=== PATIENT | female | born 1935 | race Caucasian/White ===

== ENCOUNTER 2019-11-24 14:56 | Inpatient (IN) | payer OTHER ==
--- NOTE | 2019-11-24 15:31 | PDOC ---
History of Present Illness - General Chief Complaint: Abnormal Lab Results (Outside) Stated Complaint: Blood Transfusion Time Seen by Provider: 11/24/19 15:04 History Source: Family, Fdc Records Exam Limitations: Clinical Condition, Dementia, Intubated - History of Present Illness Initial Comments: 83F PMH prior CVA (baseline nonverbal, trach/pegged), COPD, HTN, HF, AF on Eliquis, HAIR BIBEMS from [facility] for low H/H. Son at bedside interviewed for additional hx; states pt suffered CVA in 2014, currently baseline. Was found to be anemia years ago at [facility] but never received GI work up / colonscopy 2 instability. Hx per [facility] paperwork. Past History - Past Medical History Allergies/Adverse Reactions: Allergies Allergy/AdvReac Type Severity Reaction Status Date / Time No Known Allergies Allergy Verified 11/24/19 16:27 Home Medications: Ambulatory Orders Acetaminophen 650 mg PO QID 11/24/19 Apixaban [Eliquis] 5 mg PO BID 11/24/19 Ascorbic Acid 500 mg PO DAILY 11/24/19 Aspirin 81 mg PO DAILY 11/24/19 Atorvastatin Ca [Lipitor] 80 mg PO HS 11/24/19 Ferrous Sulfate [Feosol] 300 mg NGT DAILY 11/24/19 Furosemide 20 mg PO DAILY 11/24/19 Ipratropium/Albuterol Sulfate [Iprat-Albut 0.5-3(2.5) mg/3 ml] 3 ml IH QID 11/24 L. Acidophilus/Pectin, [place] [Acidophilus Capsule] 1 each PO TID 11/24/19 Loperamide HCl [Loperamide] 2 mg PO QID 11/24/19 Magnesium Oxide 400 mg PO BID 11/24/19 Metoprolol Tartrate 25 mg PO BID 11/24/19 Midodrine HCl 10 mg PO DAILY 11/24/19 Multivitamins [Tab-A-Vit -] 1 tab PO DAILY 11/24/19 Omeprazole 40 mg PO DAILY 11/24/19 levETIRAcetam [levETIRAcetam ORAL SUSPENSION] 500 mg PO BID 11/24/19 Review of Systems - Review of Systems Able to Perform ROS?: No *Physical Exam - Vital Signs Last Vital Signs Temp Pulse Resp BP Pulse Ox 72 14 100 11/24/19 15:18 11/24/19 15:18 11/24/19 15:18 - Physical Exam VS: Febrile 102F rectal GEN: eyes closed, responds to stimuli by moving, nonverbal, noncooperative HEENT: NC/AT. No facial asymmetry. Dry membranes. Supple neck w/ FROM. CV: S1/S2, irregular irregular LUNG: Trach/vented. coarse breath sounds, mechanically ventilated. GI: Soft, ndnt, +BS, no guarding, no rebound. G-tube in place. MSK: 2+ distal pulses. No LE edema. No ulceration of the heels/feet. No obvious deformities of all extremities. SKIN: no rashes, warm/dry/intact, supple PSYCH: unable to assess NEURO: unable to assess ED Treatment Course - LABORATORY CBC & Chemistry Diagram: 11/25/19 12:10 11/25/19 12:10 - RADIOLOGY Radiology Studies Ordered: Category Date Time Status CHEST X-RAY PORTABLE* [RAD] Stat Radiology 11/24/19 15:25 Ordered Medical Decision Making - Medical Decision Making 11/24/19 15:29 83F PMH prior CVA (baseline nonverbal, trach/pegged), COPD, HTN, HF, AF on Eliquis, HAIR BIBEMS from [facility] for low H/H. Nonverbal, unable to obtain hx from patient. coarse breath sounds. Spoke w/ [facility] RN - hgb yesterday 6.3, wbc 11.3. - sepsis labs - t&s - FOBT - cxr - consent for pRBC 11/24/19 17:32 CXR image/report reviewed - bibasilar changes labs reviewed abx admit // ADMITTED Discharge - Discharge Information Problems reviewed: Yes Clinical Impression/Diagnosis: Volume overload Qualifiers: Hypervolemia type: other Qualified Code(s): E87.79 - Other fluid overload Pneumonia Qualifiers: Pneumonia type: due to unspecified organism Laterality: unspecified laterality Lung location: unspecified part of lung Qualified Code(s): J18.9 - Pneumonia, unspecified organism Condition: Stable - Admission Yes - Follow up/Referral - Patient Discharge Instructions - Post Discharge Activity
[2019-11-24] MEDS ORDERED: ACETAMINOPHEN 1000 MG/100 ML VIAL (NON FORMULARY) IVPB ONE (16:03)
[2019-11-24] MEDS ORDERED: ACETAMINOPHEN INJECTION 100 ML IVPB ONE (16:47)
[2019-11-24 17:03] LABS: BASO % 0.5 % (0-2.0); EOS % 1.9 % (0-4.5); HEMATOCRIT 28.3 % (32.4-45.2); LYMPH % 16.7 % (8-40); MCHC 31.8 g/dl (32.0-36.0); MEAN CELL VOLUME 88.1 fl (80-96); MEAN PLT VOLUME 7.4 fl (7.5-11.1); MONO % 6.1 % (3.8-10.2); NEUT % 74.8 % (42.8-82.8); PLATELET COUNT 386 K/MM3 (134-434); RBC 3.21 M/mm3 (3.60-5.2); RDW 23.6 % (11.6-15.6); WHITE BLOOD COUNT 8.9 K/mm3 (4.0-10.0)
[2019-11-24 17:11] LABS: VENOUS PC02 44.7 mmHg (38-52); VENOUS PH 7.44 (7.31-7.41); VENOUS PO2 49.1 mmHg (28-48)
[2019-11-24] MEDS ORDERED: VANCOMYCIN 1 GM in D5W (PRE-DOCKED) 1,000 MG/250 ML IVPB ONE (17:15)
[2019-11-24] MEDS ORDERED: AZITHROMYCIN IVPB 500 MG in DEXTROSE 5%-WATER - 250 ML IVPB ONE (17:15)
[2019-11-24] MEDS ORDERED: PIPERACILLIN/TAZOB 3.375 GM 3.375 GM in DEXTROSE 5%-WATER - 50 ML IVPB ONE (17:15)
[2019-11-24 17:16] LABS: INR 1.54 (0.83-1.09); PROTHROMBIN TIME (PATIENT) 18.3 SEC (9.7-13.0)
[2019-11-24 17:18] LABS: ACTIVATED PTT 28.8 SECONDS (25.2-36.5)
[2019-11-24 17:32] LABS: ALBUMIN 2.6 g/dl (3.4-5.0); ALK PHOS 70 U/L (45-117); ANION GAP 7 MMOL/L (8-16); BILIRUBIN,TOTAL 0.6 mg/dL (0.2-1); BLOOD UREA NITROGEN 53.9 mg/dL (7-18); CALCIUM 8.6 mg/dL (8.5-10.1); CHLORIDE 104 mmol/L (98-107); CO2 29 mmol/L (21-32); CREATININE 0.8 mg/dL (0.55-1.3); GLUCOSE,RANDOM 105 mg/dL (74-106); POTASSIUM 4.3 mmol/L (3.5-5.1); SGOT/AST 27 U/L (15-37); SGPT/ALT 28 U/L (13-61); SODIUM 139 mmol/L (136-145); TOT PROT 7.1 g/dl (6.4-8.2)
[2019-11-24 18:04] LABS: ANISOCYTOSIS 2+; MACROCYTOSIS 2+
--- NOTE | 2019-11-24 18:04 | PDOC ---
Attending Attestation - Resident Resident Name: CallejasRanjit - ED Attending Attestation I have performed the following: I have examined & evaluated the patient, The case was reviewed & discussed with the resident, I agree w/resident's findings & plan, Exceptions are as noted - HPI HPI: 11/24/19 18:03 83yoF vent dependant sent by SNF for "blood transfuion". Pt nonverbal, noninteractive. Family does not know why pt was sent. Found on ED Presetnation to have fever to 102F of unknown duration. - Physicial Exam PE: 11/24/19 18:04 NAD coarse BS Throughout RRR soft ntnd noninteractive -- baseline per family. - Medical Decision Making 11/24/19 18:04 83yoF w/ fever from SNF, concern for VAP. - cxr - labs - ekg - ivf, tylenol, abx - admit.
[2019-11-24] MEDS ORDERED: AZITHROMYCIN IVPB 500 MG/250 ML BAG IVPB ONE (18:26)
[2019-11-24] MEDS ORDERED: SODIUM CHLORIDE 1,000 ML IV SCH (19:45)
--- NOTE | 2019-11-24 19:59 | HP ---
CHIEF COMPLAINT: sent from [place] with low hemoglobin of 6.3 PCP: HISTORY OF PRESENT ILLNESS: 83 year old female who presents from [facility] with history of CVA with trach-vent and PEG, COPD, hyperlipidemia, and atrial fibrillation on Eliquis who presents from [facility] she had blood work and found to have a hemoglobin of 6.3 and WBC of 11.3. she was sent to ER for further evauation. Patient is nonverbal and unable to obtain accurate health history and no family available at bedside. ER course was notable for: (1)fever of 102.2, WBC 8.9, lactic acid 2.1, CXR w/bibasilar infiltrates- received IV antibiotics(pipercillin and azithromycin) (2) hgb 9.0, hct 28.3, stool occult negative (3) elevated [id number] Recent Travel: no PAST MEDICAL HISTORY: CVA COPD hyperlipidemia atrial fibrillation PAST SURGICAL HISTORY: PEG tracheostomy Social History: Smoking:unable to obtain Alcohol:unable to obtain Drugs: unable to obtain Allergies No Known Allergies Allergy (Verified 11/24/19 16:27) HOME MEDICATIONS: Home Medications Medication Instructions Recorded Acetaminophen 650 mg PO QID 11/24/19 Apixaban [Eliquis] 5 mg PO BID 11/24/19 Ascorbic Acid 500 mg PO DAILY 11/24/19 Aspirin 81 mg PO DAILY 11/24/19 Atorvastatin Ca [Lipitor] 80 mg PO HS 11/24/19 Ferrous Sulfate [Feosol] 300 mg NGT DAILY 11/24/19 Furosemide 20 mg PO DAILY 11/24/19 Ipratropium/Albuterol Sulfate 3 ml IH QID 11/24/19 [Iprat-Albut 0.5-3(2.5) mg/3 ml] L. Acidophilus/Pectin, [place] 1 each PO TID 11/24/19 [Acidophilus Capsule] Loperamide HCl [Loperamide] 2 mg PO QID 11/24/19 Magnesium Oxide 400 mg PO BID 11/24/19 Metoprolol Tartrate 25 mg PO BID 11/24/19 Midodrine HCl 10 mg PO DAILY 11/24/19 Multivitamins [Tab-A-Vit -] 1 tab PO DAILY 11/24/19 Omeprazole 40 mg PO DAILY 11/24/19 levETIRAcetam [levETIRAcetam ORAL 500 mg PO BID 11/24/19 SUSPENSION] REVIEW OF SYSTEMS Unable to obtain ROS due to patient mental status CONSTITUTIONAL: Absent: fever, chills, diaphoresis, generalized weakness, malaise, loss of appetite, weight change HEENT: Absent: rhinorrhea, nasal congestion, throat pain, throat swelling, difficulty swallowing, mouth swelling, ear pain, eye pain, visual changes CARDIOVASCULAR: Absent: chest pain, syncope, palpitations, irregular heart rate, lightheadedness , peripheral edema RESPIRATORY: Absent: cough, shortness of breath, dyspnea with exertion, orthopnea, wheezing, stridor, hemoptysis GASTROINTESTINAL: Absent: abdominal pain, abdominal distension, nausea, vomiting, diarrhea, constipation, melena, hematochezia GENITOURINARY: Absent: dysuria, frequency, urgency, hesitancy, hematuria, flank pain, genital pain MUSCULOSKELETAL: Absent: myalgia, arthralgia, joint swelling, back pain, neck pain SKIN: Absent: rash, itching, pallor HEMATOLOGIC/IMMUNOLOGIC: Absent: easy bleeding, easy bruising, lymphadenopathy, frequent infections ENDOCRINE: Absent: unexplained weight gain, unexplained weight loss, heat intolerance, cold intolerance NEUROLOGIC: Absent: headache, focal weakness or paresthesias, dizziness, unsteady gait, seizure, mental status changes, bladder or bowel incontinence PSYCHIATRIC: Absent: anxiety, depression, suicidal or homicidal ideation, hallucinations. PHYSICAL EXAMINATION Vital Signs - 24 hr 11/24/19 11/24/19 11/24/19 15:17 15:18 15:25 Temperature 102 F H 102.2 F H Pulse Rate 75 72 Respiratory 13 14 Rate Blood Pressure 115/63 O2 Sat by Pulse 100 100 Oximetry (%) GENERAL: no acute distress, nonverbal HEAD: normal EYES: Pupils equal, round and reactive to light, extraocular movements intact, sclera anicteric, conjunctiva clear. No lid lag. EARS, NOSE, THROAT: ears normal, nares patent, oropharynx clear without exudates NECK: no JVD LUNGS: breath sounds diminished no wheezing no rales HEART: rate irregular and rhythm ABDOMEN: nontender nondistended, normoactive bowel sounds, PEG site with no drainage, no erthyema UPPER EXTREMITIES: peripheral edema present LOWER EXTREMITIES:lower extremity edema present warm on palpation NEUROLOGICAL: no movement to upper or lower extremities, does not follow up commands PSYCHIATRIC: calm SKIN: warm dry no rashes or lesions noted, Laboratory Results - last 24 hr 11/24/19 11/24/19 11/24/19 15:50 16:13 16:13 WBC 8.9 RBC 3.21 L Hgb 9.0 L Hct 28.3 L MCV 88.1 MCH 28.0 MCHC 31.8 L RDW 23.6 H Plt Count 386 MPV 7.4 L Absolute Neuts (auto) 6.7 Neutrophils % 74.8 Lymphocytes % 16.7 Monocytes % 6.1 Eosinophils % 1.9 Basophils % 0.5 Nucleated RBC % 0 Anisocytosis 2+ Microcytosis 2+ Macrocytosis 2+ PT with INR INR PTT (Actin FS) VBG pH POC VBG pCO2 POC VBG pO2 VBG HCO3 VBG O2 Sat (Kylie) VBG Base Excess Sodium 139 Potassium 4.3 Chloride 104 Carbon Dioxide 29 Anion Gap 7 L BUN 53.9 H Creatinine 0.8 Est GFR (CKD-EPI)AfAm 77.92 Est GFR (CKD-EPI)NonAf 67.23 Random Glucose 105 Lactic Acid Calcium 8.6 Total Bilirubin 0.6 AST 27 ALT 28 Alkaline Phosphatase 70 Creatine Kinase 42 Troponin I < 0.02 B-Natriuretic Peptide Total Protein 7.1 Albumin 2.6 L Stool Occult Blood Negative Blood Type Antibody Screen 11/24/19 11/24/19 11/24/19 16:13 16:13 16:13 WBC RBC Hgb Hct MCV MCH MCHC RDW Plt Count MPV Absolute Neuts (auto) Neutrophils % Lymphocytes % Monocytes % Eosinophils % Basophils % Nucleated RBC % Anisocytosis Microcytosis Macrocytosis PT with INR 18.30 H INR 1.54 H PTT (Actin FS) 28.8 VBG pH 7.44 H POC VBG pCO2 44.7 POC VBG pO2 49.1 H VBG HCO3 30.2 H VBG O2 Sat (Kylie) 80.6 H VBG Base Excess 6.0 H Sodium Potassium Chloride Carbon Dioxide Anion Gap BUN Creatinine Est GFR (CKD-EPI)AfAm Est GFR (CKD-EPI)NonAf Random Glucose Lactic Acid 2.1 H Calcium Total Bilirubin AST ALT Alkaline Phosphatase Creatine Kinase Troponin I B-Natriuretic Peptide Total Protein Albumin Stool Occult Blood Blood Type Antibody Screen 11/24/19 11/24/19 16:13 16:13 WBC RBC Hgb Hct MCV MCH MCHC RDW Plt Count MPV Absolute Neuts (auto) Neutrophils % Lymphocytes % Monocytes % Eosinophils % Basophils % Nucleated RBC % Anisocytosis Microcytosis Macrocytosis PT with INR INR PTT (Actin FS) VBG pH POC VBG pCO2 POC VBG pO2 VBG HCO3 VBG O2 Sat (Kylie) VBG Base Excess Sodium Potassium Chloride Carbon Dioxide Anion Gap BUN Creatinine Est GFR (CKD-EPI)AfAm Est GFR (CKD-EPI)NonAf Random Glucose Lactic Acid Calcium Total Bilirubin AST ALT Alkaline Phosphatase Creatine Kinase Troponin I B-Natriuretic Peptide 3698.2 H Total Protein Albumin Stool Occult Blood Blood Type A POSITIVE Antibody Screen Negative ASSESSMENT/PLAN: 83 year old female who presents from [facility] with history of CVA with trach-vent and PEG, COPD, hyperlipidemia, and atrial fibrillation on Eliquis who presented from [facility] as she was noted to have a low hemoglobin (6.3) and elevated WBC (11.3). Upon evaluation in the ER she was found to have a hgb of 9.0 and WBC of 8.9. She had an elevated lactic acid of 2.1 and fever of 102. CXR demonstrated bibasilar infiltrates.She is being admitted to Medicine for further medical evaluation/management. #1 Fever in setting of Pneumonia elevated lactic acid, blood pressure soft , revceived IV vancomycin, pipercillin and azithromax --UA and blood cultures pending --repeat lactic acid level in am --Continue with IV pipercillin,azithromax and vancomycin --ID- Dr. Conti consulted regarding IV antibiotics #2 COPD no acute exacerbation --Continue with albuterol #3 Hyperlipidemia --Continue with statin therapy #4 Atrial Fibrillation rate controlled --Will hold metoprolol due to soft blood pressures --Continue with eliquis for stroke prophylaxsis as stool occult negative --Chck repeat CBC in am #5 CVA nonverbal, eyes closed, does not follow commands --Continue statin, will hold asa in setting of anemia #6 Elevated BNP on exam does have fluid overload check echocardiogram to evaluate LV function and valvular anatomy will hold on giving IV diuretics Consider Cardiology evaluation in am FEN avoid IV fluids to avoid acute CHF exacerbation monitor electrolytes with BMP daily RD consult for PEG feeding recommendations DVT Prophylaxsis Continue with eliquis Visit type - Emergency Visit Emergency Visit: Yes ED Registration Date: 11/24/19 Care time: The patient presented to the Emergency Department on the above date and was hospitalized for further evaluation of their emergent condition. - New Patient This patient is new to me today: Yes Date on this admission: 11/25/19 - Critical Care Critical Care patient: No
[2019-11-24] MEDS ORDERED: VANCOMYCIN 1 GRAM (PRE-DOCKED) 1,000 MG/250 ML BAG IVPB ONE (21:56)
[2019-11-24] MEDS ORDERED: PIPERACILLIN/TAZOB 3.375 GM 3.375 GM/50 ML BAG IVPB ONE (22:08)
[2019-11-24] MEDS: ATORVASTATIN CA 80 MG TABLET (FP) PO SCH ×2 (22:14→23:46)
[2019-11-24] MEDS: levETIRAcetam 500 MG TABLET (FP) PO SCH ×2 (22:14→23:46)
[2019-11-24] MEDS: LACTOBACILLUS ACIDOPHILUS 1 TABLET PO SCH ×2 (22:15→23:46)
[2019-11-25] MEDS ORDERED: PIPERACILLIN/TAZOB 3.375 GM 3.375 GM/50 ML BAG IVPB ONE (03:06)
[2019-11-25] MEDS: PIPERACILLIN/TAZOB 3.375 GM 3.375 GM in DEXTROSE 5%-WATER - 50 ML IVPB SCH ×5 (03:08→20:53)
[2019-11-25 03:27] LABS: PH,URINE 8.5 (5.0-8.0); URINE APPEARANCE CLEAR; URINE BILIRUBIN NEGATIVE (NEGATIVE); URINE COLOR YELLOW; URINE GLUCOSE (UA) NEGATIVE (NEGATIVE); URINE KETONE NEGATIVE (NEGATIVE); URINE LEUK ESTERASE NEGATIVE (NEGATIVE); URINE NITRITE NEGATIVE (NEGATIVE); URINE PROTEIN TRACE (NEGATIVE); URINE UROBILINOGEN 0.2 mg/dL (0.2-1.0)
[2019-11-25 06:42] VITALS: BMI 29.7
[2019-11-25] MEDS ORDERED: PIPERACILLIN/TAZOBACTAM 3.375 GM VIAL IVPB ONE ×3 (09:14→21:03)
[2019-11-25] MEDS ORDERED: DEXTROSE 5%-WATER - 50 ML IVPB ONE ×3 (09:15→21:03)
[2019-11-25] MEDS: LACTOBACILLUS ACIDOPHILUS 1 TABLET PO SCH ×3 (09:17→21:28)
[2019-11-25] MEDS: ASCORBIC ACID 500 MG TABLET (FP) PO SCH (09:21)
[2019-11-25] MEDS: levETIRAcetam 500 MG TABLET (FP) PO SCH ×2 (09:21→21:28)
[2019-11-25] MEDS: MULTIVITAMINS (DAILY MVI) TABLET (FP) PO SCH (09:21)
--- NOTE | 2019-11-25 09:21 | PN ---
Progress Note, Physician History of Present Illness: 83 year old female who presents from [facility] with history of CVA with trach-vent and PEG, COPD, hyperlipidemia, and atrial fibrillation on Eliquis who presents from [facility] she had blood work and found to have a hemoglobin of 6.3 and WBC of 11.3. she was sent to ER for further evauation. Patient is nonverbal and unable to obtain accurate health history and no family available at bedside. - Current Medication List Current Medications: Active Medications Ascorbic Acid (Vitamin C -) 500 mg PO DAILY [facility] Atorvastatin Calcium (Lipitor -) 80 mg PO HS [facility] Last Admin: 11/24/19 23:46 Dose: 80 mg Ferrous Sulfate (Feosol) 300 mg PO DAILY [facility] Furosemide (Lasix -) 20 mg PO DAILY [facility] Piperacillin Sod/Tazobactam (Sod 3.375 gm/ Dextrose) 50 mls @ 100 mls/hr IVPB Q8H-IV [facility]; Protocol Azithromycin 250 mg/ Dextrose 250 mls @ 250 mls/hr IVPB DAILY [facility] Piperacillin Sod/Tazobactam (Sod 3.375 gm/ Dextrose) 50 mls @ 100 mls/hr IVPB Q8H-IV [facility] Stop: 11/25/19 18:29 Last Admin: 11/25/19 03:08 Dose: 100 mls/hr Vancomycin HCl (Vancomycin (Pre-Docked)) 1,000 mg in 250 mls @ 166.667 mls/hr IVPB ONCE ONE Stop: 11/25/19 11:29 Lactobacillus Acidophilus (Bacid -) 1 tab PO TID [facility] Last Admin: 11/25/19 09:17 Dose: Not Given Levetiracetam (Keppra -) 500 mg PO BID [facility] Last Admin: 11/24/19 23:46 Dose: 500 mg Multivitamins/Minerals/Vitamin C (Tab-A-Vit -) 1 tab PO DAILY [facility] Non-Formulary Medication (Midodrine Hcl [Midodrine Hcl]) 10 mg PO DAILY [facility] Pantoprazole Sodium (Protonix -) 40 mg PO DAILY [facility] Vancomycin HCl (Vancomycin (Pre-Docked)) 1,000 mg IVPB DAILY [facility]; Protocol - Objective Vital Signs: Vital Signs Temperature 98.7 F 11/25/19 06:20 Pulse Rate 70 11/25/19 06:20 Respiratory Rate 12 11/25/19 08:51 Blood Pressure 97/54 L 11/25/19 06:20 O2 Sat by Pulse Oximetry (%) 100 11/25/19 06:20 Cardiovascular: Yes: S1, S2 Respiratory: Yes: Regular, CTA Bilaterally Gastrointestinal: Yes: Normal Bowel Sounds, Soft Labs: CBC, BMP 11/24/19 16:13 11/24/19 16:13 INR, PTT INR 1.54 (0.83-1.09) H 11/24/19 16:13 Problem List - Problems (1) Anemia Assessment/Plan: S/P PRBC STOOL FOR OCCULT BLOOD GI AND HEM HOLD ELIQUIS Code(s): D64.9 - ANEMIA, UNSPECIFIED (2) Fever Assessment/Plan: CULTURES IV ABX ID CONSULT Code(s): R50.9 - FEVER, UNSPECIFIED (3) CVA (cerebral vascular accident) Code(s): I63.9 - CEREBRAL INFARCTION, UNSPECIFIED (4) Afib Assessment/Plan: HOLD AC DUE TO SEVERE ANEMIA CARDIO Code(s): I48.91 - UNSPECIFIED ATRIAL FIBRILLATION (5) COPD (chronic obstructive pulmonary disease) Assessment/Plan: PULM ON BOARD Code(s): J44.9 - CHRONIC OBSTRUCTIVE PULMONARY DISEASE, UNSPECIFIED (6) CHF (congestive heart failure) Assessment/Plan: MONITOR --HOLD LASIX DUE TO HYPOTENSION CXR Code(s): I50.9 - HEART FAILURE, UNSPECIFIED
[2019-11-25] MEDS ORDERED: PT OWN MED DRAWER 7, Y5N ONE ×4 (09:51→16:58)
[2019-11-25] MEDS ORDERED: VANCOMYCIN 1 GRAM (PRE-DOCKED) 1,000 MG/250 ML BAG IVPB ONE (10:00)
[2019-11-25] MEDS ORDERED: VANCOMYCIN 1 GM in D5W (PRE-DOCKED) 1,000 MG/250 ML IVPB SCH (10:00)
[2019-11-25] MEDS ORDERED: MIDODRINE HCL 5 MG TABLET PO SCH (10:00)
[2019-11-25] MEDS ORDERED: PANTOPRAZOLE 40 MG TABLET PO SCH (10:00)
[2019-11-25] MEDS ORDERED: FUROSEMIDE 20 MG TABLET (FP) PO SCH (10:00)
[2019-11-25 12:26] LABS: HEMATOCRIT 21.4 % (32.4-45.2); MCH 28.9 pg (25.7-33.7); MCHC 32.3 g/dl (32.0-36.0); MEAN CELL VOLUME 89.7 fl (80-96); MEAN PLT VOLUME 7.2 fl (7.5-11.1); PLATELET COUNT 449 K/MM3 (134-434); RBC 2.39 M/mm3 (3.60-5.2); RDW 23.5 % (11.6-15.6); WHITE BLOOD COUNT 9.7 K/mm3 (4.0-10.0)
[2019-11-25 12:38] LABS: HEMOGLOBIN 6.9 GM/dL (10.7-15.3)
[2019-11-25 13:03] LABS: BLOOD UREA NITROGEN 46.3 mg/dL (7-18); CALCIUM 8.7 mg/dL (8.5-10.1); CREATININE 0.8 mg/dL (0.55-1.3); MAGNESIUM 2.5 mg/dL (1.8-2.4); POTASSIUM 3.8 mmol/L (3.5-5.1)
--- NOTE | 2019-11-25 14:02 | CON.GI ---
Consult Consult Specialty:: GI Referred by:: Hospitalist Service Reason for Consultation:: Anemia - History of Present Illness Chief Complaint: patient on vent, non-verbal. Son present at bedside History of Present Illness: 83F sent from [place] for evaluation of anemia. Also was having fevers per the admission note. No fevers here. No bleeding reported. Son present at bedside. Explains that her mother had a stroke 08/30, was treated at [facility] and that she required 3 U PRBC transfusion. He does not believe that she had bleeding then. She is on eliquis BID as well as ASA 81mg daily in [place]. Iron studies have not been sent and the anemia is normocytic. She has never had an upper endoscopy or colonoscopy. there is no family history of colorectal cancer or other GI malignancy. 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 Cardio/Vascular: Yes: AFIB - Past Surgical History Additional Surgical History: gastrostomy tube placement 08/30 - Alcohol/Substance Use Hx Alcohol Use: Yes (socially) History of Substance Use: reports: None - Smoking History Smoking history: Former smoker Have you smoked in the past 12 months: No - Social History Usual Living Arrangement: Care Home Place of : Other ([facility]) History of Recent Travel: No Home Medications - Allergies Allergies/Adverse Reactions: Allergies Allergy/AdvReac Type Severity Reaction Status Date / Time No Known Allergies Allergy Verified 11/24/19 16:27 - Home Medications Home Medications: Ambulatory Orders Acetaminophen 650 mg PO QID 11/24/19 Apixaban [Eliquis] 5 mg PO BID 11/24/19 Ascorbic Acid 500 mg PO DAILY 11/24/19 Aspirin 81 mg PO DAILY 11/24/19 Atorvastatin Ca [Lipitor] 80 mg PO HS 11/24/19 Ferrous Sulfate [Feosol] 300 mg NGT DAILY 11/24/19 Furosemide 20 mg PO DAILY 11/24/19 Ipratropium/Albuterol Sulfate [Iprat-Albut 0.5-3(2.5) mg/3 ml] 3 ml IH QID 11/24 L. Acidophilus/Pectin, [place] [Acidophilus Capsule] 1 each PO TID 11/24/19 Loperamide HCl [Loperamide] 2 mg PO QID 11/24/19 Magnesium Oxide 400 mg PO BID 11/24/19 Metoprolol Tartrate 25 mg PO BID 11/24/19 Midodrine HCl 10 mg PO DAILY 11/24/19 Multivitamins [Tab-A-Vit -] 1 tab PO DAILY 11/24/19 Omeprazole 40 mg PO DAILY 11/24/19 levETIRAcetam [levETIRAcetam ORAL SUSPENSION] 500 mg PO BID 11/24/19 Family Medical History Other Family History: No family history of colorectal cancer or other GI malignancy Review of Systems Unable to obtain ROS, reason: Patient nonverbal Physical Exam-GI Vital Signs: Vital Signs Temperature 98.3 F 11/25/19 13:05 Pulse Rate 70 11/25/19 13:05 Respiratory Rate 12 11/25/19 12:25 Blood Pressure 99/66 11/25/19 13:05 O2 Sat by Pulse Oximetry (%) 100 11/25/19 09:00 Constitutional: Yes: Calm Eyes: No: Sclera Icterus HENT: Yes: Other (trach) Cardiovascular: Yes: Pulse Irregular Respiratory: Yes: Diminished (at bases bilaterally) Gastrointestinal Inspection: Yes: Other (G-Tube in mid upper abdomen (appears to be a balloon gastrostomy). G-Tube was lavaged with sterile water. No blood, coffee grounds. Clear yellow bilious return noted.). No: Distention ...Auscultate: Yes: Normoactive Bowel Sounds ...Palpate: Yes: Soft. No: Hepatomegaly, Splenomegaly, Tenderness ...Percussion: No: Tympanitic ...Rectal Exam: Yes: Other ([employer] Former present: brown soft stool in rectal vault. Guaiac negative) Edema: No (No LE edema) Neurological: Yes: Other (On vent, non-verbal) Labs: CBC, BMP 11/25/19 12:10 11/25/19 12:10 INR, PTT INR 1.54 (0.83-1.09) H 11/24/19 16:13 Problem List - Problems (1) Anemia Assessment/Plan: Normocytic anemia without over bleeding and guaiac negative on exam Advise: Hematology evaluation Iron studies Monitor for overt bleeding If medically cleared upper endoscopy could be considered followed by colonoscopy if no other etiology of anemia identified / overt bleeding occurs / iron deficiency noted. Discussed with son. Discussed potential risks of the procedure like but not limited to bleeding, perforation requiring surgery to repair, infection, sedation medication effects all of which could be potentially life threatening. The endoscopy would be potentially for Thursday. Eliquis would need to be held and bridging anticoagulation given recent CVA per primary team. If considered high risk for holding antocoagulation in setting of recent CVA, this would need to be discussed with patient prior to committing to procedures. Protonix 40mg IV BID for now If overt bleeding, A/C will need to be held Code(s): D64.9 - ANEMIA, UNSPECIFIED
[2019-11-25] MEDS: AZITHROMYCIN IVPB 250 MG in DEXTROSE 5%-WATER - 250 ML IVPB SCH (14:13)
[2019-11-25] MEDS: PANTOPRAZOLE SODIUM 80 MG in SODIUM CHLORIDE 100 ML IVPB SCH ×2 (14:56→23:55)
--- NOTE | 2019-11-25 15:00 | CON.PULM ---
Consult Consult Specialty:: PULM/CCM Referred by:: JIN Reason for Consultation:: Chronic Respiratory Failure - History of Present Illness Chief Complaint: Anemia History of Present Illness: 83 F, chronic respiratory failure, S/P CVA 08/30. Admitted via the ER due for evaluation of anemia and fevers. She is maintained on Eliquis and ASA. The patient is not able to provide any information. 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 Cardio/Vascular: Yes: AFIB Pulmonary: Yes: O2 Dependent, Previously Intubated - Past Surgical History Additional Surgical History: gastrostomy tube placement 08/30 - Alcohol/Substance Use Hx Alcohol Use: Yes (socially) History of Substance Use: reports: None - Smoking History Smoking history: Former smoker Have you smoked in the past 12 months: No - Social History Usual Living Arrangement: [facility] History of Recent Travel: No Home Medications - Allergies Allergies/Adverse Reactions: Allergies Allergy/AdvReac Type Severity Reaction Status Date / Time No Known Allergies Allergy Verified 11/24/19 16:27 - Home Medications Home Medications: Ambulatory Orders Acetaminophen 650 mg PO QID 11/24/19 Apixaban [Eliquis] 5 mg PO BID 11/24/19 Ascorbic Acid 500 mg PO DAILY 11/24/19 Aspirin 81 mg PO DAILY 11/24/19 Atorvastatin Ca [Lipitor] 80 mg PO HS 11/24/19 Ferrous Sulfate [Feosol] 300 mg NGT DAILY 11/24/19 Furosemide 20 mg PO DAILY 11/24/19 Ipratropium/Albuterol Sulfate [Iprat-Albut 0.5-3(2.5) mg/3 ml] 3 ml IH QID 11/24 L. Acidophilus/Pectin, [place] [Acidophilus Capsule] 1 each PO TID 11/24/19 Loperamide HCl [Loperamide] 2 mg PO QID 11/24/19 Magnesium Oxide 400 mg PO BID 11/24/19 Metoprolol Tartrate 25 mg PO BID 11/24/19 Midodrine HCl 10 mg PO DAILY 11/24/19 Multivitamins [Tab-A-Vit -] 1 tab PO DAILY 11/24/19 Omeprazole 40 mg PO DAILY 11/24/19 levETIRAcetam [levETIRAcetam ORAL SUSPENSION] 500 mg PO BID 11/24/19 Review of Systems Unable to obtain ROS, reason: not able to provide Physical Exam Vital Sings: Vital Signs Temperature 98.3 F 11/25/19 13:05 Pulse Rate 70 11/25/19 13:05 Respiratory Rate 12 11/25/19 12:25 Blood Pressure 99/66 11/25/19 13:05 O2 Sat by Pulse Oximetry (%) 100 11/25/19 09:00 Constitutional: Yes: No Distress, Other (Vented ) Eyes: Yes: Conjunctiva Clear HENT: Yes: Atraumatic, Normocephalic Neck: Yes: Trachea Midline, Other (Tracheostomy intact ) Cardiovascular: Yes: Regular Rate and Rhythm Respiratory: Yes: Mechanically Ventilated, Rhonchi. No: Accessory Muscle Use, Rales, SOB, SOB on Exertion, Stridor, Tachypnea, Wheezes ...Inspection: Yes: WNL ...Clubbing: No Gastrointestinal: Yes: Normal Bowel Sounds, Soft Musculoskeletal: Yes: WNL Extremities: Yes: WNL Edema: No Peripheral Pulses WNL: Yes Integumentary: Yes: WNL Neurological: Yes: Lethargy Labs: CBC, BMP 11/25/19 12:10 11/25/19 12:10 Imaging - Results Chest X-ray: Report Reviewed, Image Reviewed Assessment/Plan IMP: Chronic Respiratory Failure R/O PNA Anemia R/O GI Bleed S/P CVA PLAN: AC mode of vent Noted patient was started on Zosyn & Zithromax and an ID consult was called Alegre-culture Mechanical VTE prophylaxis Normal transfusion thresholds Poor candidate for weaning Will follow Thank you. Dr Butler
--- NOTE | 2019-11-25 15:06 | CON.CARD ---
Consult Consult Specialty:: Cardiology Reason for Consultation:: AFIB - History of Present Illness History of Present Illness: This is an 83 year old female who presents fro the [facility] and has a PMH of a CVA with a trach-vent and PEG, COPD, HLD, and atrial fibrillation on Eliquis. She was noted to have anemia, with an HGB of 6.3 and an increased WBC count of 11.3. Also noted to have a fever of 102.2 with bibasilar infitrates on CXR. HR 70 BPM - Past Medical History RN CVOR: Yes: CVA Cardio/Vascular: Yes: AFIB - Past Surgical History Additional Surgical History: gastrostomy tube placement 08/30 - Alcohol/Substance Use Hx Alcohol Use: Yes (socially) History of Substance Use: reports: None - Smoking History Smoking history: Former smoker Have you smoked in the past 12 months: No - Social History Usual Living Arrangement: Snf History of Recent Travel: No Home Medications - Allergies Allergies/Adverse Reactions: Allergies Allergy/AdvReac Type Severity Reaction Status Date / Time No Known Allergies Allergy Verified 11/24/19 16:27 - Home Medications Home Medications: Ambulatory Orders Acetaminophen 650 mg PO QID 11/24/19 Apixaban [Eliquis] 5 mg PO BID 11/24/19 Ascorbic Acid 500 mg PO DAILY 11/24/19 Aspirin 81 mg PO DAILY 11/24/19 Atorvastatin Ca [Lipitor] 80 mg PO HS 11/24/19 Ferrous Sulfate [Feosol] 300 mg NGT DAILY 11/24/19 Furosemide 20 mg PO DAILY 11/24/19 Ipratropium/Albuterol Sulfate [Iprat-Albut 0.5-3(2.5) mg/3 ml] 3 ml IH QID 11/24 L. Acidophilus/Pectin, [place] [Acidophilus Capsule] 1 each PO TID 11/24/19 Loperamide HCl [Loperamide] 2 mg PO QID 11/24/19 Magnesium Oxide 400 mg PO BID 11/24/19 Metoprolol Tartrate 25 mg PO BID 11/24/19 Midodrine HCl 10 mg PO DAILY 11/24/19 Multivitamins [Tab-A-Vit -] 1 tab PO DAILY 11/24/19 Omeprazole 40 mg PO DAILY 11/24/19 levETIRAcetam [levETIRAcetam ORAL SUSPENSION] 500 mg PO BID 11/24/19 Vital Signs: Vital Signs Temperature 98.3 F 11/25/19 13:05 Pulse Rate 70 11/25/19 13:05 Respiratory Rate 12 11/25/19 12:25 Blood Pressure 99/66 11/25/19 13:05 O2 Sat by Pulse Oximetry (%) 100 11/25/19 09:00 Constitutional: Yes: No Distress (Trach/Vent) Respiratory: Yes: Mechanically Ventilated Gastrointestinal: Yes: Soft Cardiovascular: Yes: Pulse Irregular Heart Sounds: Yes: S1, S2 Edema: Yes Edema: LUE: Trace, RUE: Trace, LLE: Trace, RLE: Trace Neurological: Yes: Other (Not verbal) - Other Data Labs, Other Data: CBC, BMP 11/25/19 12:10 11/25/19 12:10 INR, PTT INR 1.54 (0.83-1.09) H 11/24/19 16:13 Troponin, BNP 11/24/19 11/24/19 16:13 16:13 Troponin I < 0.02 B-Natriuretic Peptide 3698.2 H Troponin, BNP 11/24/19 11/24/19 16:13 16:13 Troponin I < 0.02 B-Natriuretic Peptide 3698.2 H Assessment/Plan 83 year old female who presents fro the [facility] and has a PMH of a CVA with a trach-vent and PEG, COPD, HLD, and atrial fibrillation on Eliquis. She was noted to have anemia, with an HGB of 6.3 and an increased WBC count of 11.3. Also noted to have a fever of 102.2 with bibasilar infitrates on CXR. AFIB Chronic Rate controlled Was on Eliquis but that is being held secondary to anemia PNA ABX as per medical team CHF Holding Lasix secondary to low BP Would resume Lasix PO when able as BNP was elevated
--- NOTE | 2019-11-25 17:15 | CONSULT ---
Consultation: CONSULT SERVICE: Hematology/Oncology Resident HISTORY OF PRESENT ILLNESS: 83yo F with h/o Tracheostomy and PEG tube, end-stage COPD, HLD, Atrial fibrillation (on Eliquis) who presented from [facility] due to fevers noted at their facility. Pt has chronic trach and not able to provide any history. Upon presentation patient found to have 102*F fever and with further workup is suspected to have pneumonia. Pt's Hgb fell to 6.9gm today and we were asked to medically evaluate this patient. HPI is limited due to patient's chronic medical conditions and is provided by EMR. PMHx: CVA COPD hyperlipidemia atrial fibrillation PSHx: PEG tracheostomy SoHx: Smoking:unable to obtain Alcohol:unable to obtain Drugs: unable to obtain REVIEW OF SYSTEMS: As per [facility] PHYSICAL EXAMINATION Vital Signs - 24 hr 11/24/19 11/24/19 11/24/19 19:15 20:08 21:00 Temperature Pulse Rate Pulse Rate [ 77 Right Radial] Respiratory 12 12 12 Rate Blood Pressure Blood Pressure 95/57 L [Left Arm] O2 Sat by Pulse 100 100 Oximetry (%) 11/24/19 11/25/19 11/25/19 22:28 00:05 04:02 Temperature 98 F Pulse Rate 73 77 Pulse Rate [ Right Radial] Respiratory 12 12 12 Rate Blood Pressure 97/35 L 124/63 Blood Pressure [Left Arm] O2 Sat by Pulse Oximetry (%) 11/25/19 11/25/19 11/25/19 04:47 04:57 06:20 Temperature 98.7 F Pulse Rate 78 70 Pulse Rate [ Right Radial] Respiratory 12 12 12 Rate Blood Pressure 93/64 97/54 L Blood Pressure [Left Arm] O2 Sat by Pulse 100 Oximetry (%) 11/25/19 11/25/19 11/25/19 07:04 08:51 09:00 Temperature 97.8 F Pulse Rate 83 Pulse Rate [ Right Radial] Respiratory 12 12 12 Rate Blood Pressure 99/37 L Blood Pressure [Left Arm] O2 Sat by Pulse 100 Oximetry (%) 11/25/19 11/25/19 12:25 13:05 Temperature 98.3 F Pulse Rate 70 Pulse Rate [ Right Radial] Respiratory 12 Rate Blood Pressure 99/66 Blood Pressure [Left Arm] O2 Sat by Pulse Oximetry (%) GENERAL: Chronically ventilated, tracks around the room, NAD HEENT: no conjunctival pallor, [id number] mucosa, no thrush NECK: No cervical lymphadenopathy, tracheostomy in place without secretions around site LUNGS: Diminished breath sounds at the bases bilaterally. No wheezes, and no crackles. No accessory muscle use. Chronic ventilator HEART: Irregularly irregular with normal rate, normal S1 and S2 without murmur ABDOMEN: Soft, G-tube mid abdomen noted with site C/D/I, nondistendend, no grimmacing with palpation, No hepatomegaly EXTREMITIES: 2+ pulses, warm, well-perfused. No peripheral edema. PSYCHIATRIC: Cooperative. Good eye contact. Appropriate mood and affect. SKIN: Warm, dry, no rashes or lesions noted. Laboratory Results - last 24 hr 11/24/19 11/24/19 11/24/19 16:13 16:13 16:13 WBC RBC Hgb Hct MCV MCH MCHC RDW Plt Count MPV Anisocytosis 2+ Microcytosis 2+ Macrocytosis 2+ PT with INR INR PTT (Actin FS) VBG pH POC VBG pCO2 POC VBG pO2 VBG HCO3 VBG O2 Sat (Kylie) VBG Base Excess Sodium 139 Potassium 4.3 Chloride 104 Carbon Dioxide 29 Anion Gap 7 L BUN 53.9 H Creatinine 0.8 Est GFR (CKD-EPI)AfAm 77.92 Est GFR (CKD-EPI)NonAf 67.23 POC Glucometer Random Glucose 105 Lactic Acid 2.1 H Calcium 8.6 Magnesium Total Bilirubin 0.6 AST 27 ALT 28 Alkaline Phosphatase 70 Creatine Kinase 42 Troponin I < 0.02 B-Natriuretic Peptide Total Protein 7.1 Albumin 2.6 L TSH Urine Color Urine Appearance Urine pH Ur Specific [place] Urine Protein Urine Glucose (UA) Urine Ketones Urine Blood Urine Nitrite Urine Bilirubin Urine Urobilinogen Ur Leukocyte Esterase Influenza A (Rapid) Influenza B (Rapid) Blood Type Antibody Screen Crossmatch 11/24/19 11/24/19 11/24/19 16:13 16:13 16:13 WBC RBC Hgb Hct MCV MCH MCHC RDW Plt Count MPV Anisocytosis Microcytosis Macrocytosis PT with INR 18.30 H INR 1.54 H PTT (Actin FS) 28.8 VBG pH 7.44 H POC VBG pCO2 44.7 POC VBG pO2 49.1 H VBG HCO3 30.2 H VBG O2 Sat (Kylie) 80.6 H VBG Base Excess 6.0 H Sodium Potassium Chloride Carbon Dioxide Anion Gap BUN Creatinine Est GFR (CKD-EPI)AfAm Est GFR (CKD-EPI)NonAf POC Glucometer Random Glucose Lactic Acid Calcium Magnesium Total Bilirubin AST ALT Alkaline Phosphatase Creatine Kinase Troponin I B-Natriuretic Peptide Total Protein Albumin TSH Urine Color Urine Appearance Urine pH Ur Specific [place] Urine Protein Urine Glucose (UA) Urine Ketones Urine Blood Urine Nitrite Urine Bilirubin Urine Urobilinogen Ur Leukocyte Esterase Influenza A (Rapid) Influenza B (Rapid) Blood Type A POSITIVE Antibody Screen Negative Crossmatch See Detail 11/24/19 11/24/19 11/25/19 16:13 23:04 02:40 WBC RBC Hgb Hct MCV MCH MCHC RDW Plt Count MPV Anisocytosis Microcytosis Macrocytosis PT with INR INR PTT (Actin FS) VBG pH POC VBG pCO2 POC VBG pO2 VBG HCO3 VBG O2 Sat (Kylie) VBG Base Excess Sodium Potassium Chloride Carbon Dioxide Anion Gap BUN Creatinine Est GFR (CKD-EPI)AfAm Est GFR (CKD-EPI)NonAf POC Glucometer 105 Random Glucose Lactic Acid Calcium Magnesium Total Bilirubin AST ALT Alkaline Phosphatase Creatine Kinase Troponin I B-Natriuretic Peptide 3698.2 H Total Protein Albumin TSH Urine Color Yellow Urine Appearance Clear Urine pH 8.5 H Ur Specific [place] 1.018 Urine Protein Trace Urine Glucose (UA) Negative Urine Ketones Negative Urine Blood Negative Urine Nitrite Negative Urine Bilirubin Negative Urine Urobilinogen 0.2 Ur Leukocyte Esterase Negative Influenza A (Rapid) Influenza B (Rapid) Blood Type Antibody Screen Crossmatch 11/25/19 11/25/19 11/25/19 06:52 12:10 12:10 WBC 9.7 RBC 2.39 L Hgb 6.9 L* Hct 21.4 L D MCV 89.7 MCH 28.9 MCHC 32.3 RDW 23.5 H Plt Count 449 H MPV 7.2 L Anisocytosis Microcytosis Macrocytosis PT with INR INR PTT (Actin FS) VBG pH POC VBG pCO2 POC VBG pO2 VBG HCO3 VBG O2 Sat (Kylie) VBG Base Excess Sodium 138 Potassium 3.8 Chloride 103 Carbon Dioxide 28 Anion Gap 7 L BUN 46.3 H Creatinine 0.8 Est GFR (CKD-EPI)AfAm 77.92 Est GFR (CKD-EPI)NonAf 67.23 POC Glucometer 90 Random Glucose 121 H Lactic Acid Calcium 8.7 Magnesium 2.5 H Total Bilirubin AST ALT Alkaline Phosphatase Creatine Kinase Troponin I B-Natriuretic Peptide Total Protein Albumin TSH 3.00 Urine Color Urine Appearance Urine pH Ur Specific [place] Urine Protein Urine Glucose (UA) Urine Ketones Urine Blood Urine Nitrite Urine Bilirubin Urine Urobilinogen Ur Leukocyte Esterase Influenza A (Rapid) Influenza B (Rapid) Blood Type Antibody Screen Crossmatch 11/25/19 13:15 WBC RBC Hgb Hct MCV MCH MCHC RDW Plt Count MPV Anisocytosis Microcytosis Macrocytosis PT with INR INR PTT (Actin FS) VBG pH POC VBG pCO2 POC VBG pO2 VBG HCO3 VBG O2 Sat (Kylie) VBG Base Excess Sodium Potassium Chloride Carbon Dioxide Anion Gap BUN Creatinine Est GFR (CKD-EPI)AfAm Est GFR (CKD-EPI)NonAf POC Glucometer Random Glucose Lactic Acid Calcium Magnesium Total Bilirubin AST ALT Alkaline Phosphatase Creatine Kinase Troponin I B-Natriuretic Peptide Total Protein Albumin TSH Urine Color Urine Appearance Urine pH Ur Specific [place] Urine Protein Urine Glucose (UA) Urine Ketones Urine Blood Urine Nitrite Urine Bilirubin Urine Urobilinogen Ur Leukocyte Esterase Influenza A (Rapid) Negative Influenza B (Rapid) Negative Blood Type Antibody Screen Crossmatch Active Medications Generic Name Dose Route Start Last Admin Trade Name Freq PRN Reason Stop Dose Admin Ascorbic Acid 500 mg 11/25/19 10:00 11/25/19 09:21 Vitamin C - PO 500 mg DAILY ARNAV Administration Atorvastatin Calcium 80 mg 11/24/19 22:00 11/24/19 23:46 Lipitor - PO 80 mg HS ARNAV Administration Ferrous Sulfate 300 mg 11/25/19 10:00 Feosol PO DAILY ARNAV Azithromycin 250 mg/ Dextrose 250 mls @ 250 mls/hr 11/25/19 10:00 11/25/19 14 :13 IVPB 250 mls/hr DAILY ARNAV Administration Pantoprazole Sodium 80 mg/ 100 mls @ 10 mls/hr 11/25/19 12:45 11/25/19 14:56 Sodium Chloride IVPB 11/28/19 12:45 10 mls/hr Q10H ARNAV Administration 8 MG/HR Piperacillin Sod/Tazobactam 50 mls @ 100 mls/hr 11/25/19 18:00 Sod 3.375 gm/ Dextrose IVPB Q8H-IV ARNAV Protocol Lactobacillus Acidophilus 1 tab 11/24/19 22:00 11/25/19 15:16 Bacid - PO 1 tab TID ARNAV Administration Levetiracetam 500 mg 11/24/19 22:00 11/25/19 09:21 Keppra - PO 500 mg BID ARNAV Administration Multivitamins/Minerals/Vitamin C 1 tab 11/25/19 10:00 11/25/19 09:21 Tab-A-Vit - PO 1 tab DAILY ARNAV Administration Non-Formulary Medication 10 mg 11/25/19 10:00 Midodrine Hcl [Midodrine Hcl] PO DAILY ARNAV ASSESSMENT/PLAN: Normocytic anemia Pneumonia Chronic respiratory failure --Unclear if original CBC was hemoconcentrated from possible dehydration --Likely mostly component of chronic disease alongside dehydration 2/2 to infection and possible blood loss --Iron studies prior to PRBC ordered Case discussed with Dr. Chandana Shankar, DO - IM PGY-3 Visit type - Emergency Visit Emergency Visit: Yes ED Registration Date: 11/24/19 Care time: The patient presented to the Emergency Department on the above date and was hospitalized for further evaluation of their emergent condition. - New Patient This patient is new to me today: No - Critical Care Critical Care patient: No ATTENDING PHYSICIAN STATEMENT I saw and evaluated the patient. I reviewed the resident's note and discussed the case with the resident. I agree with the resident's findings and plan as documented. SUBJECTIVE: OBJECTIVE: ASSESSMENT AND PLAN:
--- NOTE | 2019-11-25 17:46 | PN ---
Progress Note (short form) - Note Progress Note: ID CONSULT DICTATED BIBASILAR PNEUMONIA R/O SEPSIS SECONDARY TO PNEUMONIA CHRONIC RESPIRATORY FAILURE AWAIT C/S CONTINUE EMPIRIC ZOSYN/ ZITHROMAX
[2019-11-25] MEDS: FERROUS SO4 300 MG/5 ML ORAL SOLN UNIT DOSE CUPS PO SCH ×2 (17:51→17:54)
--- NOTE | 2019-11-25 20:27 | PN ---
Teaching Attending Note Name of Resident: Moose hSankar ATTENDING PHYSICIAN STATEMENT I saw and evaluated the patient. I reviewed the resident's note and discussed the case with the resident. I agree with the resident's findings and plan as documented. SUBJECTIVE: Patient seen and examined [facility]/ anemia with fall in Hb /Hct. ?? initial Hb/Hct valid, ?? dehydrated Hct. Has bilateral pneumonia Last Vital Signs Temp Pulse Resp BP Pulse Ox 99.6 F 72 15 113/70 100 11/25/19 17:55 11/25/19 17:55 11/25/19 17:55 11/25/19 17:55 11/25/19 09:00 HEENT: IGOR, EOM Intact Oropharynx: No thrush, No mucositis Neck: trach Breasts: Without masses Cor:atrial fib Lungs decreased breath sounds Abd: Soft, Normal bowel sounds, No organomegaly PEG Ext:No significant edema Skin: No rashes, Integument intact CBC, BMP 11/25/19 12:10 11/25/19 12:10 Current Medications Generic Name Dose Route Start Last Admin Trade Name Freq PRN Reason Stop Dose Admin Ascorbic Acid 500 mg 11/25/19 10:00 11/25/19 09:21 Vitamin C - PO 500 mg DAILY ARNAV Administration Atorvastatin Calcium 80 mg 11/24/19 22:00 11/24/19 23:46 Lipitor - PO 80 mg HS ARNAV Administration Ferrous Sulfate 300 mg 11/25/19 10:00 11/25/19 17:54 Feosol PO 300 mg DAILY ARNAV Administration Azithromycin 250 mg/ Dextrose 250 mls @ 250 mls/hr 11/25/19 10:00 11/25/19 14 :13 IVPB 250 mls/hr DAILY ARNAV Administration Pantoprazole Sodium 80 mg/ 100 mls @ 10 mls/hr 11/25/19 12:45 11/25/19 14:56 Sodium Chloride IVPB 11/28/19 12:45 10 mls/hr Q10H ARNAV Administration 8 MG/HR Piperacillin Sod/Tazobactam 50 mls @ 100 mls/hr 11/25/19 18:00 11/25/19 17:51 Sod 3.375 gm/ Dextrose IVPB 100 mls/hr Q8H-IV ARNAV Administration Protocol Lactobacillus Acidophilus 1 tab 11/24/19 22:00 11/25/19 15:16 Bacid - PO 1 tab TID ARNAV Administration Levetiracetam 500 mg 11/24/19 22:00 11/25/19 09:21 Keppra - PO 500 mg BID ARNAV Administration Multivitamins/Minerals/Vitamin C 1 tab 11/25/19 10:00 11/25/19 09:21 Tab-A-Vit - PO 1 tab DAILY ARNAV Administration Non-Formulary Medication 10 mg 11/25/19 10:00 Midodrine Hcl [Midodrine Hcl] PO DAILY [facility] OBJECTIVE: Impression Pneumonia Respiratory failure Anemia - ?? blood loss, ??other Peripheral smear Normochromic somewhat microcytic cells, no significant aniso or poikilocytosis WBC adequate - no significant toxic granulation Platelets. Likely component of chronic disease , dehydration, infection, and component of blood loss. Await Fe++ studies and screening. ASSESSMENT AND PLAN:
[2019-11-25] MEDS: ATORVASTATIN CA 80 MG TABLET (FP) PO SCH (21:29)
[2019-11-25 21:34] LABS: IRON SERUM 43 ug/dL (50-175); TOTAL IRON BINDING CAPACITY 246 ug/dL (250-450)
[2019-11-26] MEDS: PIPERACILLIN/TAZOB 3.375 GM 3.375 GM in DEXTROSE 5%-WATER - 50 ML IVPB SCH ×3 (01:04→17:11)
[2019-11-26] MEDS: LACTOBACILLUS ACIDOPHILUS 1 TABLET PO SCH ×3 (05:21→21:32)
--- NOTE | 2019-11-26 08:14 | PN.GI ---
GI Progress Note Subjective: PATIENT POORLY RESPONSIVE ; H/H NOTED ; NO REPORT OF GI BLEED - Objective Vital Signs: Vital Signs Temperature 98.8 F 11/26/19 06:29 Pulse Rate 63 11/26/19 06:29 Respiratory Rate 14 11/26/19 06:29 Blood Pressure 100/54 L 11/26/19 06:29 O2 Sat by Pulse Oximetry (%) 100 11/25/19 20:00 Constitutional: No Distress Eyes: Yes: WNL Cardiovascular: Yes: WNL, Regular Rate and Rhythm Respiratory: Yes: WNL, Regular, CTA Bilaterally Gastrointestinal Inspection: Yes: WNL ...Auscultate: Yes: Normoactive Bowel Sounds Edema: No Labs: CBC, BMP 11/25/19 12:10 11/25/19 12:10 INR, PTT INR 1.54 (0.83-1.09) H 11/24/19 16:13 Problem List - Problems (1) Anemia Assessment/Plan: STOOL FOR OCCULT BLOOD NEGATIVE MONITOR H/H Q12 WHILE HOSPITALIZED HOLD A/C PPI THERAPY HEME EVALUATION TENTATIVE EGD ON THURSDAY Code(s): D64.9 - ANEMIA, UNSPECIFIED (2) CVA (cerebral vascular accident) Code(s): I63.9 - CEREBRAL INFARCTION, UNSPECIFIED
--- NOTE | 2019-11-26 09:52 | PN ---
Progress Note, Physician - Current Medication List Current Medications: Active Medications Ascorbic Acid (Vitamin C -) 500 mg PO DAILY [facility] Last Admin: 11/25/19 09:21 Dose: 500 mg Atorvastatin Calcium (Lipitor -) 80 mg PO HS [facility] Last Admin: 11/25/19 21:29 Dose: 80 mg Ferrous Sulfate (Feosol) 300 mg PO DAILY [facility] Last Admin: 11/25/19 17:54 Dose: 300 mg Azithromycin 250 mg/ Dextrose 250 mls @ 250 mls/hr IVPB DAILY [facility] Last Admin: 11/25/19 14:13 Dose: 250 mls/hr Pantoprazole Sodium 80 mg/ (Sodium Chloride) 100 mls @ 10 mls/hr IVPB Q10H [facility] Stop: 11/28/19 12:45 Last Admin: 11/25/19 23:55 Dose: Not Given Piperacillin Sod/Tazobactam (Sod 3.375 gm/ Dextrose) 50 mls @ 100 mls/hr IVPB Q8H-IV [facility]; Protocol Last Admin: 11/26/19 01:04 Dose: 100 mls/hr Lactobacillus Acidophilus (Bacid -) 1 tab PO TID [facility] Last Admin: 11/26/19 05:21 Dose: 1 tab Levetiracetam (Keppra -) 500 mg PO BID [facility] Last Admin: 11/25/19 21:28 Dose: 500 mg Multivitamins/Minerals/Vitamin C (Tab-A-Vit -) 1 tab PO DAILY [facility] Last Admin: 11/25/19 09:21 Dose: 1 tab Non-Formulary Medication (Midodrine Hcl [Midodrine Hcl]) 10 mg PO DAILY [facility] - Objective Vital Signs: Vital Signs Temperature 98.8 F 11/26/19 06:29 Pulse Rate 60 11/26/19 08:36 Respiratory Rate 16 11/26/19 08:54 Blood Pressure 115/65 11/26/19 08:36 O2 Sat by Pulse Oximetry (%) 100 11/26/19 08:54 Cardiovascular: Yes: S1, S2 Respiratory: Yes: Mechanically Ventilated Gastrointestinal: Yes: Normal Bowel Sounds, Soft Labs: CBC, BMP 11/25/19 12:10 11/25/19 12:10 INR, PTT INR 1.54 (0.83-1.09) H 11/24/19 16:13 Problem List - Problems (1) Anemia Assessment/Plan: S/P PRBC-Repeat pending STOOL FOR OCCULT BLOOD GI AND HEM HOLD ELIQUIS Code(s): D64.9 - ANEMIA, UNSPECIFIED (2) Fever Assessment/Plan: CULTURES Microbiology 11/25/19 02:40 Urine - Urine Clean Catch Urine Culture - Final Contaminated: Please Repeat 11/24/19 16:13 Blood - Peripheral Venous Blood Culture - Preliminary Pending Organism 11/24/19 16:13 Blood - Peripheral Venous Blood Culture - Preliminary NO GROWTH OBTAINED AFTER 24 HOURS, INCUBATION TO CONTINUE FOR 4 DAYS. IV ABX PER ID ID CONSULT Code(s): R50.9 - FEVER, UNSPECIFIED (3) CVA (cerebral vascular accident) Assessment/Plan: old Code(s): I63.9 - CEREBRAL INFARCTION, UNSPECIFIED (4) Afib Assessment/Plan: HOLD AC DUE TO SEVERE ANEMIA CARDIO Code(s): I48.91 - UNSPECIFIED ATRIAL FIBRILLATION (5) COPD (chronic obstructive pulmonary disease) Assessment/Plan: PULM ON BOARD Code(s): J44.9 - CHRONIC OBSTRUCTIVE PULMONARY DISEASE, UNSPECIFIED (6) CHF (congestive heart failure) Assessment/Plan: MONITOR --HOLD LASIX DUE TO HYPOTENSION CXR Code(s): I50.9 - HEART FAILURE, UNSPECIFIED
[2019-11-26] MEDS: AZITHROMYCIN IVPB 250 MG in DEXTROSE 5%-WATER - 250 ML IVPB SCH (10:00)
[2019-11-26] MEDS: levETIRAcetam 500 MG TABLET (FP) PO SCH ×2 (10:00→21:32)
[2019-11-26] MEDS: FERROUS SO4 300 MG/5 ML ORAL SOLN UNIT DOSE CUPS PO SCH (10:00)
--- NOTE | 2019-11-26 10:29 | PN ---
Progress Note, Physician History of Present Illness: NOT RESPONSIVE ON VENTILATOR BC + GPCCL X 1 BOTTLE AFEBRILE NO ACUTE RESP DISTRESS - Current Medication List Current Medications: Active Medications Ascorbic Acid (Vitamin C -) 500 mg PO DAILY [facility] Last Admin: 11/25/19 09:21 Dose: 500 mg Atorvastatin Calcium (Lipitor -) 80 mg PO HS [facility] Last Admin: 11/25/19 21:29 Dose: 80 mg Ferrous Sulfate (Feosol) 300 mg PO DAILY [facility] Last Admin: 11/25/19 17:54 Dose: 300 mg Azithromycin 250 mg/ Dextrose 250 mls @ 250 mls/hr IVPB DAILY [facility] Last Admin: 11/25/19 14:13 Dose: 250 mls/hr Pantoprazole Sodium 80 mg/ (Sodium Chloride) 100 mls @ 10 mls/hr IVPB Q10H [facility] Stop: 11/28/19 12:45 Last Admin: 11/25/19 23:55 Dose: Not Given Piperacillin Sod/Tazobactam (Sod 3.375 gm/ Dextrose) 50 mls @ 100 mls/hr IVPB Q8H-IV [facility]; Protocol Last Admin: 11/26/19 01:04 Dose: 100 mls/hr Lactobacillus Acidophilus (Bacid -) 1 tab PO TID [facility] Last Admin: 11/26/19 05:21 Dose: 1 tab Levetiracetam (Keppra -) 500 mg PO BID [facility] Last Admin: 11/25/19 21:28 Dose: 500 mg Multivitamins/Minerals/Vitamin C (Tab-A-Vit -) 1 tab PO DAILY [facility] Last Admin: 11/25/19 09:21 Dose: 1 tab Non-Formulary Medication (Midodrine Hcl [Midodrine Hcl]) 10 mg PO DAILY [facility] - Objective Vital Signs: Vital Signs Temperature 98.8 F 11/26/19 06:29 Pulse Rate 60 11/26/19 08:36 Respiratory Rate 16 11/26/19 08:54 Blood Pressure 115/65 11/26/19 08:36 O2 Sat by Pulse Oximetry (%) 100 11/26/19 08:54 Constitutional: Yes: No Distress, Obese Cardiovascular: Yes: Regular Rate and Rhythm, S1, S2 Respiratory: Yes: Mechanically Ventilated Gastrointestinal: Yes: Normal Bowel Sounds, Soft. No: Tenderness Edema: Yes Labs: CBC, BMP 11/25/19 12:10 11/25/19 12:10 INR, PTT INR 1.54 (0.83-1.09) H 11/24/19 16:13 Assessment/Plan BIBASILAR PNEUMONIA R/O SEPSIS SECONDARY TO LUNG SOURCE + BC GPCCL ? SIGNIFICANCE CHRONIC RESP FAILURE ANEMIA CVA REPEAT BC AWAIT IDENTIFICATION OF BLOOD ISOLATE VANCOMYCIN X 1 CONTINUE ZOSYN/ ZITHROMAX
[2019-11-26] MEDS: ASCORBIC ACID 500 MG TABLET (FP) PO SCH (10:32)
[2019-11-26] MEDS ORDERED: VANCOMYCIN 1 GRAM (PRE-DOCKED) 1,000 MG/250 ML BAG IVPB ONE ×2 (10:33→13:30)
[2019-11-26] MEDS ORDERED: DEXTROSE 5%-WATER - 50 ML IVPB ONE ×2 (10:52→16:13)
[2019-11-26] MEDS ORDERED: PIPERACILLIN/TAZOBACTAM 3.375 GM VIAL IVPB ONE ×2 (10:52→16:13)
--- NOTE | 2019-11-26 10:57 | PN ---
Progress Note (short form) - Note Progress Note: Poorly responsive on AC Mode of vent. No acute events overnight. Intake & Output 11/23/19 11/24/19 11/25/19 11/26/19 23:59 23:59 23:59 23:59 Intake Total 467 769 1459 Output Total 300 Balance 353 076 0715 Weight 175 lb 173 lb Last Vital Signs Temp Pulse Resp BP Pulse Ox 98.8 F 60 16 115/65 100 11/26/19 06:29 11/26/19 08:36 11/26/19 08:54 11/26/19 08:36 11/26/19 08:54 Active Medications Ascorbic Acid (Vitamin C -) 500 mg PO DAILY [facility] Last Admin: 11/25/19 09:21 Dose: 500 mg Atorvastatin Calcium (Lipitor -) 80 mg PO HS [facility] Last Admin: 11/25/19 21:29 Dose: 80 mg Ferrous Sulfate (Feosol) 300 mg PO DAILY [facility] Last Admin: 11/25/19 17:54 Dose: 300 mg Azithromycin 250 mg/ Dextrose 250 mls @ 250 mls/hr IVPB DAILY [facility] Last Admin: 11/25/19 14:13 Dose: 250 mls/hr Pantoprazole Sodium 80 mg/ (Sodium Chloride) 100 mls @ 10 mls/hr IVPB Q10H [facility] Stop: 11/28/19 12:45 Last Admin: 11/25/19 23:55 Dose: Not Given Piperacillin Sod/Tazobactam (Sod 3.375 gm/ Dextrose) 50 mls @ 100 mls/hr IVPB Q8H-IV [facility]; Protocol Last Admin: 11/26/19 01:04 Dose: 100 mls/hr Vancomycin HCl (Vancomycin (Pre-Docked)) 1,000 mg in 250 mls @ 166.667 mls/hr IVPB ONCE ONE; Protocol Stop: 11/26/19 12:02 Lactobacillus Acidophilus (Bacid -) 1 tab PO TID [facility] Last Admin: 11/26/19 05:21 Dose: 1 tab Levetiracetam (Keppra -) 500 mg PO BID [facility] Last Admin: 11/25/19 21:28 Dose: 500 mg Multivitamins/Minerals/Vitamin C (Tab-A-Vit -) 1 tab PO DAILY [facility] Last Admin: 11/25/19 09:21 Dose: 1 tab Non-Formulary Medication (Midodrine Hcl [Midodrine Hcl]) 10 mg PO DAILY [facility] Constitutional: Yes: Poorly responsive, No Distress, Vented Eyes: Yes: Conjunctiva Clear HENT: Yes: Atraumatic, Normocephalic Neck: Yes: Trachea Midline, Other (Tracheostomy intact ) Cardiovascular: Yes: Regular Rate and Rhythm Respiratory: Yes: Mechanically Ventilated, Rhonchi. No: Accessory Muscle Use, Rales, SOB, SOB on Exertion, Stridor, Tachypnea, Wheezes ...Inspection: Yes: WNL ...Clubbing: No Gastrointestinal: Yes: Normal Bowel Sounds, Soft Musculoskeletal: Yes: WNL Extremities: Yes: WNL Edema: No Peripheral Pulses WNL: Yes Integumentary: Yes: WNL Neurological: Yes: poorly responsive Labs: Laboratory Results - last 24 hr 11/24/19 11/25/19 11/25/19 16:13 12:10 12:10 WBC 9.7 RBC 2.39 L Hgb 6.9 L* Hct 21.4 L D MCV 89.7 MCH 28.9 MCHC 32.3 RDW 23.5 H Plt Count 449 H MPV 7.2 L Retic Count Sodium 138 Potassium 3.8 Chloride 103 Carbon Dioxide 28 Anion Gap 7 L BUN 46.3 H Creatinine 0.8 Est GFR (CKD-EPI)AfAm 77.92 Est GFR (CKD-EPI)NonAf 67.23 Random Glucose 121 H Calcium 8.7 Magnesium 2.5 H Iron TIBC Iron Saturation Unsaturated IBC Ferritin LD Total Vitamin B12 Serum Folate TSH 3.00 Influenza A (Rapid) Influenza B (Rapid) Blood Type A POSITIVE Antibody Screen Negative Crossmatch See Detail 11/25/19 11/25/19 11/25/19 13:15 15:40 19:30 WBC RBC Hgb Hct MCV MCH MCHC RDW Plt Count MPV Retic Count Sodium Potassium Chloride Carbon Dioxide Anion Gap BUN Creatinine Est GFR (CKD-EPI)AfAm Est GFR (CKD-EPI)NonAf Random Glucose Calcium Magnesium Iron 43 L TIBC 246 L Iron Saturation 17 L Unsaturated IBC 203 Ferritin LD Total Vitamin B12 Serum Folate 32 H TSH Influenza A (Rapid) Negative Influenza B (Rapid) Negative Blood Type A POSITIVE Antibody Screen Crossmatch 11/25/19 11/25/19 19:30 19:30 WBC RBC Hgb Hct MCV MCH MCHC RDW Plt Count MPV Retic Count 9.23 H Sodium Potassium Chloride Carbon Dioxide Anion Gap BUN Creatinine Est GFR (CKD-EPI)AfAm Est GFR (CKD-EPI)NonAf Random Glucose Calcium Magnesium Iron TIBC Iron Saturation Unsaturated IBC Ferritin 152.7 LD Total 215 Vitamin B12 1146 H Serum Folate TSH Influenza A (Rapid) Influenza B (Rapid) Blood Type Antibody Screen Crossmatch Assessment/Plan IMP: Chronic Respiratory Failure R/O PNA Anemia R/O GI Bleed S/P CVA PLAN: AC mode of vent ABX per ID Follow cultures Mechanical VTE prophylaxis Normal transfusion thresholds Poor candidate for weaning Dr Butler
[2019-11-26] MEDS: MULTIVITAMINS (DAILY MVI) TABLET (FP) PO SCH (11:00)
--- NOTE | 2019-11-26 11:05 | CONS ---
DATE OF CONSULTATION: 11/25/2019 HISTORY OF PRESENT ILLNESS: The patient is an 83-year-old female who was evaluated for sepsis. History was obtained from the chart as she cannot give a history. She is a senior care resident. She has a history of stroke, chronic respiratory failure, status post tracheostomy and feeding gastrostomy, who was admitted from the senior care with anemia. She was noted at the senior care to have a hemoglobin of 6.3. She was brought to the emergency room where her temperature was 102.2. Chest x-ray shows bibasilar infiltrates. She was also noted to have an elevated lactic acid. She was empirically treated with Zithromax and Zosyn. Cultures are pending and the patient is unable to give any additional history secondary to her mental state. There were reports of shaking chills, labored breathing, cough, sputum production, vomiting, diarrhea, grossly purulent urine, or infected decubitus ulcers. PAST MEDICAL HISTORY: Positive for stroke, chronic respiratory failure, atrial fibrillation, COPD, hypertension. PAST SURGICAL HISTORY: She is status post feeding gastrostomy and tracheostomy. ALLERGIES: No known allergies. MEDICATIONS: Lipitor, Zithromax, Zosyn, Keppra, Protonix. SOCIAL HISTORY: She resides in a [place] [facility] facility, is dependent in activities of daily living. No active tobacco or alcohol use. SYSTEMS REVIEW: Neurologic: Positive for stroke and dementia. Cardiac: Positive for atrial fibrillation. Respiratory: Positive for chronic respiratory failure. Gastrointestinal: Positive for feeding gastrostomy. Genitourinary: Negative for urinary tract infection. LABORATORY DATA: White count 9.7, hematocrit 21.4, platelets 449, creatinine 0.8. Urine leukocyte esterase negative. Chest x-ray as noted. Flu swab negative. PHYSICAL EXAMINATION: General: On exam, she is not verbally responsive in no acute distress. Vitals: Temperature 98.3, temperature maximum 102.2, blood pressure 99/66, pulse 70 regular, respirations 18 per minute. HEENT: Sclera anicteric. Positive tracheostomy. Heart: Sounds S1, S2. Lungs: Air entry bilaterally. Abdomen: Obese and soft, nontender. Feeding gastrostomy tube is in place. Extremities: Positive for pedal edema. No heel or sacral decubiti noted. IMPRESSION: 1. Bibasilar pneumonia. 2. Possible sepsis secondary to pneumonia. 3. Chronic respiratory failure. 4. Severe anemia. 5. History of stroke. RECOMMENDATIONS: Await sepsis workup and continue empiric antibiotic coverage for possible senior care acquired, versus atypical pulmonary pathogens with Zosyn and Zithromax, ventilatory support. Further recommendations pending cultures. Thank you for the kind referral. ZAK SYED M.D. [id number]
[2019-11-26 11:35] LABS: ALBUMIN 2.6 g/dl (3.4-5.0); BILIRUBIN,TOTAL 1.4 mg/dL (0.2-1); BLOOD UREA NITROGEN 29.4 mg/dL (7-18); CALCIUM 8.5 mg/dL (8.5-10.1); CREATININE 0.7 mg/dL (0.55-1.3); POTASSIUM 3.7 mmol/L (3.5-5.1); TOT PROT 6.8 g/dl (6.4-8.2)
[2019-11-26 12:11] LABS: BASO % 0.8 % (0-2.0); HEMATOCRIT 28.8 % (32.4-45.2); HEMOGLOBIN 9.7 GM/dL (10.7-15.3); LYMPH % 20.2 % (8-40); MCH 29.6 pg (25.7-33.7); MCHC 33.6 g/dl (32.0-36.0); MEAN CELL VOLUME 88.2 fl (80-96); MEAN PLT VOLUME 7.6 fl (7.5-11.1); MONO % 6.1 % (3.8-10.2); NEUT % 69.9 % (42.8-82.8); PLATELET COUNT 336 K/MM3 (134-434); RBC 3.26 M/mm3 (3.60-5.2); RDW 18.8 % (11.6-15.6); WHITE BLOOD COUNT 7.5 K/mm3 (4.0-10.0)
--- NOTE | 2019-11-26 14:29 | PN ---
Progress Note (short form) - Note Progress Note: Patient seen in follow up. No new complaints. No significant events overnight. Inpatient Meds reviewed. Current Medications Ascorbic Acid (Vitamin C -) 500 mg PO DAILY [facility] Last Admin: 11/26/19 10:32 Dose: 500 mg Atorvastatin Calcium (Lipitor -) 80 mg PO HS [facility] Last Admin: 11/25/19 21:29 Dose: 80 mg Ferrous Sulfate (Feosol) 300 mg PO DAILY [facility] Last Admin: 11/26/19 10:00 Dose: 300 mg Azithromycin 250 mg/ Dextrose 250 mls @ 250 mls/hr IVPB DAILY [facility] Last Admin: 11/26/19 10:00 Dose: 250 mls/hr Pantoprazole Sodium 80 mg/ (Sodium Chloride) 100 mls @ 10 mls/hr IVPB Q10H [facility] Stop: 11/28/19 12:45 Last Admin: 11/25/19 23:55 Dose: Not Given Piperacillin Sod/Tazobactam (Sod 3.375 gm/ Dextrose) 50 mls @ 100 mls/hr IVPB Q8H-IV [facility]; Protocol Last Admin: 11/26/19 11:36 Dose: 100 mls/hr Vancomycin HCl (Vancomycin (Pre-Docked)) 1,000 mg in 250 mls @ 166.667 mls/hr IVPB ONCE ONE; Protocol Stop: 11/26/19 14:59 Lactobacillus Acidophilus (Bacid -) 1 tab PO TID [facility] Last Admin: 11/26/19 05:21 Dose: 1 tab Levetiracetam (Keppra -) 500 mg PO BID [facility] Last Admin: 11/26/19 10:00 Dose: 500 mg Multivitamins/Minerals/Vitamin C (Tab-A-Vit -) 1 tab PO DAILY [facility] Last Admin: 11/26/19 11:00 Dose: 1 tab Non-Formulary Medication (Midodrine Hcl [Midodrine Hcl]) 10 mg PO DAILY [facility] On Examination: General: Ventilated, sedated. Extremities: No pallor or icterus. No pedal edema. CVS: S1, S2, regular, no gallop or murmur. Chest: good air entry bilaterally, clear Abdomen: Non-distended, non-tender, no palpable organomegaly. Labs: CBC, BMP 11/26/19 11:45 11/26/19 10:50 Assessment. [place] resident with chronic resp failure, vent dependant, PEG, referred for acute anemia. Febrile on admission, receiving empiric Abics for suspected pneumonia. Discordant CBC with Hb 9 on admission, 6.9 following day,a nd 9.7 today - without transfusions. Reticulocytosis noted yesterday. No evidence of hemolysis. Likely GI bleed - GI following - albeit stool occult blood assay negative on admission. Son informs me that she had a similar admission with the last few months at [facility] - received transfusion then. Will follow with you.
[2019-11-26] MEDS: PANTOPRAZOLE SODIUM 80 MG in SODIUM CHLORIDE 100 ML IVPB SCH ×2 (19:44→21:24)
[2019-11-26] MEDS: ATORVASTATIN CA 80 MG TABLET (FP) PO SCH (21:32)
[2019-11-27] MEDS ORDERED: PIPERACILLIN/TAZOBACTAM 3.375 GM VIAL IVPB ONE ×3 (02:13→19:11)
[2019-11-27] MEDS ORDERED: DEXTROSE 5%-WATER - 50 ML IVPB ONE ×3 (02:13→19:11)
[2019-11-27] MEDS: PIPERACILLIN/TAZOB 3.375 GM 3.375 GM in DEXTROSE 5%-WATER - 50 ML IVPB SCH ×3 (02:17→19:28)
[2019-11-27] MEDS ORDERED: dilTIAZem HCL 25 MG/5 ML - 5 ML VIAL ONE (02:19)
[2019-11-27] MEDS: PANTOPRAZOLE SODIUM 80 MG in SODIUM CHLORIDE 100 ML IVPB SCH ×2 (06:46→14:35)
[2019-11-27 07:46] LABS: BASO % 0.9 % (0-2.0); EOS % 2.5 % (0-4.5); HEMATOCRIT 29.2 % (32.4-45.2); HEMOGLOBIN 9.9 GM/dL (10.7-15.3); LYMPH % 14.9 % (8-40); MCH 29.7 pg (25.7-33.7); MCHC 33.7 g/dl (32.0-36.0); MEAN CELL VOLUME 88.2 fl (80-96); MEAN PLT VOLUME 7.6 fl (7.5-11.1); MONO % 8.2 % (3.8-10.2); NEUT % 73.5 % (42.8-82.8); PLATELET COUNT 369 K/MM3 (134-434); RBC 3.31 M/mm3 (3.60-5.2); RDW 19.2 % (11.6-15.6); WHITE BLOOD COUNT 8.5 K/mm3 (4.0-10.0)
--- NOTE | 2019-11-27 08:00 | PN.GI ---
GI Progress Note Subjective: NO EVENTS NOTED OVERNIGHT NO MELENA / BRBR / - Objective Vital Signs: Vital Signs Temperature 97.9 F 11/27/19 00:00 Pulse Rate 73 11/27/19 05:15 Respiratory Rate 14 11/27/19 04:27 Blood Pressure 113/63 11/27/19 05:15 O2 Sat by Pulse Oximetry (%) 100 11/26/19 19:38 Constitutional: Well Nourished, No Distress Eyes: Yes: WNL HENT: Yes: WNL Cardiovascular: Yes: WNL Respiratory: Yes: WNL Gastrointestinal Inspection: Yes: WNL ...Auscultate: Yes: Normoactive Bowel Sounds Musculoskeletal: Yes: WNL Extremities: Yes: WNL Edema: No Labs: CBC, BMP 11/27/19 06:38 INR, PTT INR 1.54 (0.83-1.09) H 11/24/19 16:13 Problem List - Problems (1) Anemia Assessment/Plan: STOOL FOR OCCULT BLOOD NEGATIVE MONITOR H/H Q12 WHILE HOSPITALIZED STABLE OVER THE PAST TWO DAYS WITHOUT SIGN OF GI BLEED. MEDICAL RISK STRATIFICATION PRIOR TO ENDOSCOPIC PROCEDURE HOLD A/C PPI THERAPY HEME EVALUATION Code(s): D64.9 - ANEMIA, UNSPECIFIED (2) CVA (cerebral vascular accident) Code(s): I63.9 - CEREBRAL INFARCTION, UNSPECIFIED
[2019-11-27 08:16] LABS: ALBUMIN 2.5 g/dl (3.4-5.0); BILIRUBIN,TOTAL 1.4 mg/dL (0.2-1); BLOOD UREA NITROGEN 21.2 mg/dL (7-18); CALCIUM 8.2 mg/dL (8.5-10.1); CREATININE 0.6 mg/dL (0.55-1.3); POTASSIUM 3.1 mmol/L (3.5-5.1); TOT PROT 6.4 g/dl (6.4-8.2)
[2019-11-27] MEDS: KCL 10 MEQ IVPB 10 MEQ/100 ML INFUS.BAG IVPB SCH ×2 (09:00→10:29)
--- NOTE | 2019-11-27 09:44 | PN ---
Progress Note, Physician - Current Medication List Current Medications: Active Medications Ascorbic Acid (Vitamin C -) 500 mg PO DAILY [facility] Last Admin: 11/26/19 10:32 Dose: 500 mg Atorvastatin Calcium (Lipitor -) 80 mg PO HS [facility] Last Admin: 11/26/19 21:32 Dose: 80 mg Ferrous Sulfate (Feosol) 300 mg PO DAILY [facility] Last Admin: 11/26/19 10:00 Dose: 300 mg Azithromycin 250 mg/ Dextrose 250 mls @ 250 mls/hr IVPB DAILY [facility] Last Admin: 11/26/19 10:00 Dose: 250 mls/hr Pantoprazole Sodium 80 mg/ (Sodium Chloride) 100 mls @ 10 mls/hr IVPB Q10H [facility] Stop: 11/28/19 12:45 Last Admin: 11/27/19 06:46 Dose: Not Given Piperacillin Sod/Tazobactam (Sod 3.375 gm/ Dextrose) 50 mls @ 100 mls/hr IVPB Q8H-IV [facility]; Protocol Last Admin: 11/27/19 02:17 Dose: 100 mls/hr Potassium Chloride (Potassium Chloride 10 Meq Premix Ivpb -) 10 meq in 100 mls @ 100 mls/hr IVPB Q60M [facility] Stop: 11/27/19 10:29 Lactobacillus Acidophilus (Bacid -) 1 tab PO TID [facility] Last Admin: 11/26/19 21:32 Dose: 1 tab Levetiracetam (Keppra -) 500 mg PO BID [facility] Last Admin: 11/26/19 21:32 Dose: 500 mg Multivitamins/Minerals/Vitamin C (Tab-A-Vit -) 1 tab PO DAILY [facility] Last Admin: 11/26/19 11:00 Dose: 1 tab Non-Formulary Medication (Midodrine Hcl [Midodrine Hcl]) 10 mg PO DAILY [facility] - Objective Vital Signs: Vital Signs Temperature 97.0 F L 11/27/19 08:32 Pulse Rate 63 11/27/19 08:32 Respiratory Rate 15 11/27/19 08:32 Blood Pressure 102/64 11/27/19 08:32 O2 Sat by Pulse Oximetry (%) 100 11/26/19 19:38 Cardiovascular: Yes: S1, S2 Respiratory: Yes: Mechanically Ventilated Gastrointestinal: Yes: Normal Bowel Sounds, Soft Labs: CBC, BMP 11/27/19 06:38 11/27/19 06:38 INR, PTT INR 1.54 (0.83-1.09) H 11/24/19 16:13 Problem List - Problems (1) Anemia Assessment/Plan: S/P PRBC-Repeat pending STOOL FOR OCCULT BLOOD Negative GI AND HEM HOLD ELIQUIS Code(s): D64.9 - ANEMIA, UNSPECIFIED (2) Fever Assessment/Plan: CULTURES Microbiology 11/24/19 16:13 Blood - Peripheral Venous Blood Culture - Preliminary Pending Organism Pending Organism#2 11/24/19 16:13 Blood - Peripheral Venous Blood Culture - Preliminary Staphylococcus Coagulase Neg 11/25/19 02:40 Urine - Urine Clean Catch Urine Culture - Final Contaminated: Please Repeat IV ABX PER ID ID CONSULT Code(s): R50.9 - FEVER, UNSPECIFIED (3) CVA (cerebral vascular accident) Assessment/Plan: old Code(s): I63.9 - CEREBRAL INFARCTION, UNSPECIFIED (4) Afib Assessment/Plan: HOLD AC DUE TO SEVERE ANEMIA CARDIO Code(s): I48.91 - UNSPECIFIED ATRIAL FIBRILLATION (5) COPD (chronic obstructive pulmonary disease) Assessment/Plan: PULM ON BOARD Code(s): J44.9 - CHRONIC OBSTRUCTIVE PULMONARY DISEASE, UNSPECIFIED (6) CHF (congestive heart failure) Assessment/Plan: MONITOR --HOLD LASIX DUE TO HYPOTENSION CXR Code(s): I50.9 - HEART FAILURE, UNSPECIFIED
--- NOTE | 2019-11-27 09:52 | PN ---
Progress Note (short form) - Note Progress Note: Remains oorly responsive on AC Mode of vent. No acute events overnight. Intake & Output 11/24/19 11/25/19 11/26/19 11/27/19 23:59 23:59 23:59 23:59 Intake Total 085 594 9888 135 Output Total 300 Balance 752 641 7687 135 Weight 175 lb 173 lb Last Vital Signs Temp Pulse Resp BP Pulse Ox 97.0 F L 63 15 102/64 100 11/27/19 08:32 11/27/19 08:32 11/27/19 08:32 11/27/19 08:32 11/26/19 19:38 Active Medications Ascorbic Acid (Vitamin C -) 500 mg PO DAILY [facility] Last Admin: 11/26/19 10:32 Dose: 500 mg Atorvastatin Calcium (Lipitor -) 80 mg PO HS [facility] Last Admin: 11/26/19 21:32 Dose: 80 mg Ferrous Sulfate (Feosol) 300 mg PO DAILY [facility] Last Admin: 11/26/19 10:00 Dose: 300 mg Azithromycin 250 mg/ Dextrose 250 mls @ 250 mls/hr IVPB DAILY [facility] Last Admin: 11/26/19 10:00 Dose: 250 mls/hr Pantoprazole Sodium 80 mg/ (Sodium Chloride) 100 mls @ 10 mls/hr IVPB Q10H [facility] Stop: 11/28/19 12:45 Last Admin: 11/27/19 06:46 Dose: Not Given Piperacillin Sod/Tazobactam (Sod 3.375 gm/ Dextrose) 50 mls @ 100 mls/hr IVPB Q8H-IV [facility]; Protocol Last Admin: 11/27/19 02:17 Dose: 100 mls/hr Potassium Chloride (Potassium Chloride 10 Meq Premix Ivpb -) 10 meq in 100 mls @ 100 mls/hr IVPB Q60M [facility] Stop: 11/27/19 10:29 Lactobacillus Acidophilus (Bacid -) 1 tab PO TID [facility] Last Admin: 11/26/19 21:32 Dose: 1 tab Levetiracetam (Keppra -) 500 mg PO BID [facility] Last Admin: 11/26/19 21:32 Dose: 500 mg Multivitamins/Minerals/Vitamin C (Tab-A-Vit -) 1 tab PO DAILY [facility] Last Admin: 11/26/19 11:00 Dose: 1 tab Non-Formulary Medication (Midodrine Hcl [Midodrine Hcl]) 10 mg PO DAILY [facility] Constitutional: Yes: Poorly responsive, No Distress, Vented Eyes: Yes: Conjunctiva Clear HENT: Yes: Atraumatic, Normocephalic Neck: Yes: Trachea Midline, Other (Tracheostomy intact ) Cardiovascular: Yes: Regular Rate and Rhythm Respiratory: Yes: Mechanically Ventilated, Rhonchi. No: Accessory Muscle Use, Rales, SOB, SOB on Exertion, Stridor, Tachypnea, Wheezes ...Inspection: Yes: WNL ...Clubbing: No Gastrointestinal: Yes: Normal Bowel Sounds, Soft Musculoskeletal: Yes: WNL Extremities: Yes: WNL Edema: No Peripheral Pulses WNL: Yes Integumentary: Yes: WNL Neurological: Yes: poorly responsive Labs: Laboratory Results - last 24 hr 11/25/19 11/26/19 11/26/19 19:30 10:50 11:45 WBC 7.5 RBC 3.26 L Hgb 9.7 L Hct 28.8 L D MCV 88.2 MCH 29.6 MCHC 33.6 RDW 18.8 H Plt Count 336 D MPV 7.6 Absolute Neuts (auto) 5.2 Neutrophils % 69.9 Lymphocytes % 20.2 D Monocytes % 6.1 Eosinophils % 3.0 Basophils % 0.8 Nucleated RBC % 0 Haptoglobin 226 Sodium 138 Potassium 3.7 Chloride 106 Carbon Dioxide 22 Anion Gap 10 BUN 29.4 H Creatinine 0.7 Est GFR (CKD-EPI)AfAm 91.57 Est GFR (CKD-EPI)NonAf 79.00 Random Glucose 89 Calcium 8.5 Total Bilirubin 1.4 H AST 30 ALT 20 Alkaline Phosphatase 74 Total Protein 6.8 Albumin 2.6 L 11/27/19 11/27/19 06:38 06:38 WBC 8.5 RBC 3.31 L Hgb 9.9 L Hct 29.2 L MCV 88.2 MCH 29.7 MCHC 33.7 RDW 19.2 H Plt Count 369 MPV 7.6 Absolute Neuts (auto) 6.3 Neutrophils % 73.5 Lymphocytes % 14.9 D Monocytes % 8.2 Eosinophils % 2.5 Basophils % 0.9 Nucleated RBC % 0 Haptoglobin Sodium 138 Potassium 3.1 L Chloride 106 Carbon Dioxide 25 Anion Gap 8 BUN 21.2 H Creatinine 0.6 Est GFR (CKD-EPI)AfAm 96.33 Est GFR (CKD-EPI)NonAf 83.11 Random Glucose 86 Calcium 8.2 L Total Bilirubin 1.4 H AST 20 ALT 18 Alkaline Phosphatase 68 Total Protein 6.4 Albumin 2.5 L Assessment/Plan IMP: Chronic Respiratory Failure R/O PNA Anemia R/O GI Bleed S/P CVA PLAN: AC mode of vent ABX per ID Follow final cultures Mechanical VTE prophylaxis Normal transfusion thresholds Poor candidate for weaning Dr Butler
[2019-11-27] MEDS: levETIRAcetam 500 MG TABLET (FP) PO SCH (10:29)
[2019-11-27] MEDS: LACTOBACILLUS ACIDOPHILUS 1 TABLET PO SCH ×2 (10:29→14:35)
[2019-11-27] MEDS: MULTIVITAMINS (DAILY MVI) TABLET (FP) PO SCH (10:29)
[2019-11-27] MEDS: ASCORBIC ACID 500 MG TABLET (FP) PO SCH (10:30)
[2019-11-27] MEDS: AZITHROMYCIN IVPB 250 MG in DEXTROSE 5%-WATER - 250 ML IVPB SCH (10:55)
--- NOTE | 2019-11-27 11:11 | PN ---
Progress Note, Physician History of Present Illness: NOT RESPONSIVE ON VENTILATOR BC + MIXED ORGANISMS ? SIGNIFICANCE AFEBRILE NO ACUTE RESP DISTRESS - Current Medication List Current Medications: Active Medications Ascorbic Acid (Vitamin C -) 500 mg PO DAILY [facility] Last Admin: 11/27/19 10:30 Dose: 500 mg Atorvastatin Calcium (Lipitor -) 80 mg PO HS [facility] Last Admin: 11/26/19 21:32 Dose: 80 mg Ferrous Sulfate (Feosol) 300 mg PO DAILY [facility] Last Admin: 11/26/19 10:00 Dose: 300 mg Azithromycin 250 mg/ Dextrose 250 mls @ 250 mls/hr IVPB DAILY [facility] Last Admin: 11/27/19 10:55 Dose: 250 mls/hr Pantoprazole Sodium 80 mg/ (Sodium Chloride) 100 mls @ 10 mls/hr IVPB Q10H [facility] Stop: 11/28/19 12:45 Last Admin: 11/27/19 06:46 Dose: Not Given Piperacillin Sod/Tazobactam (Sod 3.375 gm/ Dextrose) 50 mls @ 100 mls/hr IVPB Q8H-IV [facility]; Protocol Last Admin: 11/27/19 10:30 Dose: 100 mls/hr Lactobacillus Acidophilus (Bacid -) 1 tab PO TID [facility] Last Admin: 11/27/19 10:29 Dose: Not Given Levetiracetam (Keppra -) 500 mg PO BID [facility] Last Admin: 11/27/19 10:29 Dose: 500 mg Multivitamins/Minerals/Vitamin C (Tab-A-Vit -) 1 tab PO DAILY [facility] Last Admin: 11/27/19 10:29 Dose: 1 tab Non-Formulary Medication (Midodrine Hcl [Midodrine Hcl]) 10 mg PO DAILY [facility] - Objective Vital Signs: Vital Signs Temperature 97.0 F L 11/27/19 08:32 Pulse Rate 70 11/27/19 10:42 Respiratory Rate 15 11/27/19 10:42 Blood Pressure 100/62 11/27/19 10:42 O2 Sat by Pulse Oximetry (%) 100 11/26/19 19:38 Constitutional: Yes: No Distress, Obese Cardiovascular: Yes: Regular Rate and Rhythm, S1, S2 Respiratory: Yes: Mechanically Ventilated Gastrointestinal: Yes: Normal Bowel Sounds, Soft. No: Tenderness Edema: Yes Labs: CBC, BMP 11/27/19 06:38 11/27/19 06:38 INR, PTT INR 1.54 (0.83-1.09) H 11/24/19 16:13 Assessment/Plan BIBASILAR PNEUMONIA R/O SEPSIS SECONDARY TO LUNG SOURCE + BC MIXED ORGANISMS ? SIGNIFICANCE CHRONIC RESP FAILURE ANEMIA CVA REPEAT BC PENDING AWAIT IDENTIFICATION OF BLOOD ISOLATES REDOSE VANCOMYCIN X 1 CONTINUE ZOSYN/ ZITHROMAX
[2019-11-27] MEDS ORDERED: VANCOMYCIN 1 GRAM (PRE-DOCKED) 1,000 MG/250 ML BAG IVPB ONE (11:18)
[2019-11-27] MEDS: FERROUS SO4 300 MG/5 ML ORAL SOLN UNIT DOSE CUPS PO SCH (12:20)
--- NOTE | 2019-11-27 13:04 | PN ---
Progress Note (short form) - Note Progress Note: Patient seen in follow up. No new complaints. No significant events overnight. Inpatient Meds reviewed. Current Medications Ascorbic Acid (Vitamin C -) 500 mg PO DAILY [facility] Last Admin: 11/27/19 10:30 Dose: 500 mg Atorvastatin Calcium (Lipitor -) 80 mg PO HS [facility] Last Admin: 11/26/19 21:32 Dose: 80 mg Ferrous Sulfate (Feosol) 300 mg PO DAILY [facility] Last Admin: 11/27/19 12:20 Dose: 300 mg Azithromycin 250 mg/ Dextrose 250 mls @ 250 mls/hr IVPB DAILY [facility] Last Admin: 11/27/19 10:55 Dose: 250 mls/hr Pantoprazole Sodium 80 mg/ (Sodium Chloride) 100 mls @ 10 mls/hr IVPB Q10H [facility] Stop: 11/28/19 12:45 Last Admin: 11/27/19 06:46 Dose: Not Given Piperacillin Sod/Tazobactam (Sod 3.375 gm/ Dextrose) 50 mls @ 100 mls/hr IVPB Q8H-IV [facility]; Protocol Last Admin: 11/27/19 10:30 Dose: 100 mls/hr Lactobacillus Acidophilus (Bacid -) 1 tab PO TID [facility] Last Admin: 11/27/19 10:29 Dose: Not Given Levetiracetam (Keppra -) 500 mg PO BID [facility] Last Admin: 11/27/19 10:29 Dose: 500 mg Multivitamins/Minerals/Vitamin C (Tab-A-Vit -) 1 tab PO DAILY [facility] Last Admin: 11/27/19 10:29 Dose: 1 tab Non-Formulary Medication (Midodrine Hcl [Midodrine Hcl]) 10 mg PO DAILY [facility] On Examination: Last Vital Signs Temp Pulse Resp BP Pulse Ox 97.0 F L 70 15 100/62 100 11/27/19 08:32 11/27/19 10:42 11/27/19 10:42 11/27/19 10:42 11/27/19 09:00 General: Ventilated, sedated. Extremities: No pallor or icterus. . CVS: S1, S2, regular, Chest: good air entry bilaterally, clear Abdomen: Non-distended, non-tender Neuro: Not conscious, responds to stimuli, (baseline) Labs: CBC, BMP 11/27/19 06:38 11/27/19 06:38 Assessment. [place] resident with chronic resp failure, vent dependant, PEG, referred for acute anemia. Febrile on admission, receiving empiric Abics for suspected pneumonia. Discordant CBCs with Hb 9 on admission (11/24), 6.9 following day, and 9.9 today - without transfusions. Reticulocytosis noted yesterday. Hemolysis ruled out. Likely transient GI bleed - GI following - albeit stool occult blood assay negative on admission. Son informs me that she had a similar admission with the last few months at [facility] - received transfusion then. Will follow.
[2019-11-27] MEDS ORDERED: PT OWN MED DRAWER 7, Y5N ONE ×2 (18:31→20:54)
[2019-11-27] MEDS: LACTOBACILLUS ACIDOPHILUS 1 TABLET GT SCH (21:02)
[2019-11-27] MEDS: levETIRAcetam 500 MG/5 ML ORAL SOLUTION (UNIT-DOSE CUPS) GT SCH (21:02)
[2019-11-27] MEDS: ATORVASTATIN CA 80 MG TABLET (FP) GT SCH (21:02)
[2019-11-28] MEDS ORDERED: ACETAMINOPHEN 650 MG/20.3 ML ORAL SOLUTION (CUPS) PEG PRN (01:32)
[2019-11-28] MEDS ORDERED: DEXTROSE 5%-WATER - 50 ML IVPB ONE ×3 (02:09→18:13)
[2019-11-28] MEDS ORDERED: PIPERACILLIN/TAZOBACTAM 3.375 GM VIAL IVPB ONE ×3 (02:09→18:12)
[2019-11-28] MEDS: PANTOPRAZOLE SODIUM 80 MG in SODIUM CHLORIDE 100 ML IVPB SCH ×2 (02:54→10:45)
[2019-11-28] MEDS: PIPERACILLIN/TAZOB 3.375 GM 3.375 GM in DEXTROSE 5%-WATER - 50 ML IVPB SCH ×3 (02:55→18:34)
[2019-11-28] MEDS: LACTOBACILLUS ACIDOPHILUS 1 TABLET GT SCH ×3 (05:52→21:22)
[2019-11-28 06:47] LABS: ALBUMIN 2.3 g/dl (3.4-5.0); BILIRUBIN,TOTAL 1.2 mg/dL (0.2-1); BLOOD UREA NITROGEN 18.1 mg/dL (7-18); CALCIUM 8.1 mg/dL (8.5-10.1); CREATININE 0.7 mg/dL (0.55-1.3); MAGNESIUM 1.9 mg/dL (1.8-2.4); POTASSIUM 3.1 mmol/L (3.5-5.1)
[2019-11-28 06:49] LABS: BASO % 0.9 % (0-2.0); EOS % 1.8 % (0-4.5); HEMATOCRIT 26.5 % (32.4-45.2); MCH 29.8 pg (25.7-33.7); MEAN CELL VOLUME 87.6 fl (80-96); MEAN PLT VOLUME 7.3 fl (7.5-11.1); MONO % 7.3 % (3.8-10.2); PLATELET COUNT 365 K/MM3 (134-434); RBC 3.02 M/mm3 (3.60-5.2); RDW 19.3 % (11.6-15.6); WHITE BLOOD COUNT 7.7 K/mm3 (4.0-10.0)
--- NOTE | 2019-11-28 07:03 | PN.GI ---
GI Progress Note Subjective: NO REPORT OF MELENA / BRBR PER RN - Objective Vital Signs: Vital Signs Temperature 98.7 F 11/28/19 02:00 Pulse Rate 94 H 11/28/19 02:00 Respiratory Rate 15 11/28/19 04:45 Blood Pressure 128/64 11/28/19 02:00 O2 Sat by Pulse Oximetry (%) 100 11/28/19 01:43 Constitutional: Well Nourished, Calm Eyes: Yes: WNL HENT: Yes: WNL Cardiovascular: Yes: WNL, Regular Rate and Rhythm, Other (VENTED) Gastrointestinal Inspection: Yes: WNL, Other (NOT TENDER) ...Auscultate: Yes: Normoactive Bowel Sounds Extremities: Yes: WNL Edema: No Labs: CBC, BMP 11/28/19 05:48 11/28/19 05:48 INR, PTT INR 1.54 (0.83-1.09) H 11/24/19 16:13 Problem List - Problems (1) Anemia Assessment/Plan: STOOL FOR OCCULT BLOOD NEGATIVE MONITOR H/H Q12 WHILE HOSPITALIZED STABLE OVER THE PAST TWO DAYS WITHOUT SIGN OF GI BLEED. MEDICAL RISK STRATIFICATION PRIOR TO ENDOSCOPIC PROCEDURE - TENTATIVE WED HOLD A/C PPI THERAPY HEME EVALUATION Code(s): D64.9 - ANEMIA, UNSPECIFIED (2) CVA (cerebral vascular accident) Code(s): I63.9 - CEREBRAL INFARCTION, UNSPECIFIED
--- NOTE | 2019-11-28 07:58 | PN ---
Progress Note, Physician Chief Complaint: EVENTS IN NOTES REVIEWED PATIENT ADMITTED WITH SEVERE ANEMIA HEMOGLOBIN OF 4 TRANSFUSED AND GI WORKUP IS IN PROGRESS H/O RESPIRATORY FAILURE TRACHEOSTOMY FUNCTIONING ON VENT - Current Medication List Current Medications: Active Medications Acetaminophen (Tylenol Oral Solution -) 650 mg PEG Q6H PRN PRN Reason: PAIN LEVEL 4 - 6 Last Admin: 11/28/19 02:54 Dose: 650 mg Ascorbic Acid (Vitamin C -) 500 mg GT DAILY [facility] Atorvastatin Calcium (Lipitor -) 80 mg GT HS [facility] Last Admin: 11/27/19 21:02 Dose: 80 mg Ferrous Sulfate (Feosol) 300 mg GT DAILY [facility] Azithromycin 250 mg/ Dextrose 250 mls @ 250 mls/hr IVPB DAILY [facility] Last Admin: 11/27/19 10:55 Dose: 250 mls/hr Pantoprazole Sodium 80 mg/ (Sodium Chloride) 100 mls @ 10 mls/hr IVPB Q10H [facility] Stop: 11/28/19 12:45 Last Admin: 11/28/19 02:54 Dose: 10 mls/hr Piperacillin Sod/Tazobactam (Sod 3.375 gm/ Dextrose) 50 mls @ 100 mls/hr IVPB Q8H-IV [facility]; Protocol Last Admin: 11/28/19 02:55 Dose: 100 mls/hr Lactobacillus Acidophilus (Bacid -) 1 tab GT TID [facility] Last Admin: 11/28/19 05:52 Dose: 1 tab Levetiracetam (Keppra Oral Solution -) 500 mg GT BID [facility] Last Admin: 11/27/19 21:02 Dose: 500 mg Multivitamins/Minerals (Certavite-Antioxidant Liquid) 15 ml GT DAILY [facility] Non-Formulary Medication (Midodrine Hcl [Midodrine Hcl]) 10 mg PO DAILY [facility] - Objective Vital Signs: Vital Signs Temperature 98.5 F 11/28/19 06:00 Pulse Rate 64 11/28/19 06:00 Respiratory Rate 16 11/28/19 06:00 Blood Pressure 108/92 11/28/19 06:00 O2 Sat by Pulse Oximetry (%) 100 11/28/19 01:43 Constitutional: Yes: Other Cardiovascular: Yes: Regular Rate and Rhythm Respiratory: Yes: Diminished, Mechanically Ventilated Gastrointestinal: Yes: Soft Genitourinary: Yes: Incontinence Musculoskeletal: Yes: Muscle Weakness Edema: Yes Edema: LLE: 1+ Integumentary: Yes: Venous Stasis Changes Neurological: Yes: Pre-Existing Deficit, Other ...Motor Strength: LLE, RLE Psychiatric: Yes: Other Labs: CBC, BMP 11/28/19 05:48 11/28/19 05:48 INR, PTT INR 1.54 (0.83-1.09) H 11/24/19 16:13 Problem List - Problems (1) Afib Code(s): I48.91 - UNSPECIFIED ATRIAL FIBRILLATION (2) Anemia Code(s): D64.9 - ANEMIA, UNSPECIFIED (3) COPD (chronic obstructive pulmonary disease) Code(s): J44.9 - CHRONIC OBSTRUCTIVE PULMONARY DISEASE, UNSPECIFIED (4) CVA (cerebral vascular accident) Code(s): I63.9 - CEREBRAL INFARCTION, UNSPECIFIED (5) Fever Code(s): R50.9 - FEVER, UNSPECIFIED (6) Pneumonia Code(s): J18.9 - PNEUMONIA, UNSPECIFIED ORGANISM Qualifiers: Pneumonia type: due to unspecified organism Laterality: unspecified laterality Lung location: unspecified part of lung Qualified Code(s): J18.9 - Pneumonia, unspecified organism (7) Volume overload Code(s): E87.70 - FLUID OVERLOAD, UNSPECIFIED Qualifiers: Hypervolemia type: other Qualified Code(s): E87.79 - Other fluid overload Assessment/Plan GI WORKUP IS IN PROGRESS NPO EXCEPT MEDS MONITOR H/H TODAY 07/07.5 RESPIRATORY SUPPORT NOT A CANDIDATE TO WEAN OFF AT THIS TIME PULMONARY F/U APPRECIATED SEIZURE PRECAUTIONS ON KEPPRA PNEUMONIA ON ZOSYN/VANCO ABX NEBS ADVANCED DIRECTIVES NEED TO BE REVIEWED WITH THE FAMILY
[2019-11-28] MEDS: KCL 10 MEQ IVPB 10 MEQ/100 ML INFUS.BAG IVPB SCH ×2 (08:25→10:01)
[2019-11-28] MEDS ORDERED: PT OWN MED DRAWER 7, Y5N ONE ×3 (08:53→21:10)
[2019-11-28] MEDS: ASCORBIC ACID 500 MG TABLET (FP) GT SCH (09:54)
[2019-11-28] MEDS: FERROUS SO4 300 MG/5 ML ORAL SOLN UNIT DOSE CUPS GT SCH (09:54)
[2019-11-28] MEDS: MULTIVIT-MINERALS ORAL LIQUID GT SCH (09:59)
[2019-11-28] MEDS: levETIRAcetam 500 MG/5 ML ORAL SOLUTION (UNIT-DOSE CUPS) GT SCH ×2 (10:00→21:25)
--- NOTE | 2019-11-28 12:09 | PN ---
Progress Note (short form) - Note Progress Note: Patient seen and examined On high pressure oxygen via trach Clenches mouth and eyes and does not allow examination of same Last Vital Signs Temp Pulse Resp BP Pulse Ox 98.4 F 61 14 128/75 100 11/28/19 08:00 11/28/19 08:42 11/28/19 09:00 11/28/19 08:00 11/28/19 09:00 Neck: trach Cor: irregular rhythm Lungs: rhonchi Abd: Soft, Normal bowel sounds, No organomegaly,PEG site clean Ext:No significant edema,SCD/ankle boots Skin: No rashes, Integument intact CBC, BMP 11/28/19 05:48 11/28/19 05:48 Current Medications Generic Name Dose Route Start Last Admin Trade Name Freq PRN Reason Stop Dose Admin Acetaminophen 650 mg 11/28/19 01:32 11/28/19 02:54 Tylenol Oral Solution - PEG 650 mg Q6H PRN Administration PAIN LEVEL 4 - 6 Ascorbic Acid 500 mg 11/27/19 19:01 11/28/19 09:54 Vitamin C - GT 500 mg DAILY [facility] Administration Atorvastatin Calcium 80 mg 11/27/19 18:58 11/27/19 21:02 Lipitor - GT 80 mg HS [facility] Administration Ferrous Sulfate 300 mg 11/27/19 18:58 11/28/19 09:54 Feosol GT 300 mg DAILY [facility] Administration Azithromycin 250 mg/ Dextrose 250 mls @ 250 mls/hr 11/25/19 10:00 11/27/19 10 :55 IVPB 250 mls/hr DAILY [facility] Administration Pantoprazole Sodium 80 mg/ 100 mls @ 10 mls/hr 11/25/19 12:45 11/28/19 02:54 Sodium Chloride IVPB 11/28/19 12:45 10 mls/hr Q10H [facility] Administration 8 MG/HR Piperacillin Sod/Tazobactam 50 mls @ 100 mls/hr 11/25/19 18:00 11/28/19 09:53 Sod 3.375 gm/ Dextrose IVPB 100 mls/hr Q8H-IV [facility] Administration Protocol Lactobacillus Acidophilus 1 tab 11/27/19 18:58 11/28/19 05:52 Bacid - GT 1 tab TID [facility] Administration Levetiracetam 500 mg 11/27/19 22:00 11/28/19 10:00 Keppra Oral Solution - GT 500 mg BID [facility] Administration Multivitamins/Minerals 15 ml 11/28/19 10:00 11/28/19 09:59 Certavite-Antioxidant Liquid GT 15 ml DAILY [facility] Administration Non-Formulary Medication 10 mg 11/25/19 10:00 Midodrine Hcl [Midodrine Hcl] PO DAILY [facility] Microbiology 11/26/19 11:50 Blood - Peripheral Venous Blood Culture - Preliminary NO GROWTH OBTAINED AFTER 48 HOURS, INCUBATION TO CONTINUE FOR 3 DAYS. 11/26/19 11:45 Blood - Peripheral Venous Blood Culture - Preliminary NO GROWTH OBTAINED AFTER 48 HOURS, INCUBATION TO CONTINUE FOR 3 DAYS. 11/25/19 17:15 Sputum - Endotrachea Suction/Ventilator Gram Stain - Final 11/25/19 17:15 Sputum - Endotrachea Suction/Ventilator Sputum Culture - Preliminary Presumptive Ps Aeruginosa Proteus Species 11/24/19 16:13 Blood - Peripheral Venous Blood Culture - Preliminary Staphylococcus Coagulase Neg Diphtheroid/Corynebacterium 11/24/19 16:13 Blood - Peripheral Venous Blood Culture - Final Staph Hominis Sub Sp Hominis 11/25/19 02:40 Urine - Urine Clean Catch Urine Culture - Final Contaminated: Please Repeat Impression: Bilateral pneumonia Anemia- 2nd lab after initial admisssion lab of 6.9 is inconsistent with remaining labs Respiratory failure Tube feedings Atrial fib HPL Normal haptoglobin, LDH Antibody screen- negative --all against hemolysis Retic count of 9.3% inconsistent -- but this value was obtained the day when Hb- -6.9 which is also not consistent with prior laboratory assessment Stool guaic negative Fe++ , TIBC, saturation of Fe++ all low with ferritin normal suggests component of chronic disease Suspect spurious lab value on 2nd blood draw with associated retic also inconsistent. Suspect component of chronic disease and blood loss- Normal B-12, folate, TSH.
[2019-11-28] MEDS: AZITHROMYCIN IVPB 250 MG in DEXTROSE 5%-WATER - 250 ML IVPB SCH (12:16)
--- NOTE | 2019-11-28 14:17 | PN ---
Progress Note (short form) - Note Progress Note: PULMONARY Vented, poorly responsive. No fevers recorded. Vital Signs Period Temp Pulse Resp BP Sys/Cole Pulse Ox Last 24 Hr 98.0 F-98.7 F 61-94 12-18 108-128/58-92 100-100 Gen: vented, poorly responsive Heart: RRR Lung: decreased breath sounds at the bases Abd: soft, nontender Ext: no edema CBC, BMP 11/28/19 05:48 11/28/19 05:48 Active Medications Acetaminophen (Tylenol Oral Solution -) 650 mg PEG Q6H PRN PRN Reason: PAIN LEVEL 4 - 6 Last Admin: 11/28/19 02:54 Dose: 650 mg Ascorbic Acid (Vitamin C -) 500 mg GT DAILY [facility] Last Admin: 11/28/19 09:54 Dose: 500 mg Atorvastatin Calcium (Lipitor -) 80 mg GT HS [facility] Last Admin: 11/27/19 21:02 Dose: 80 mg Ferrous Sulfate (Feosol) 300 mg GT DAILY [facility] Last Admin: 11/28/19 09:54 Dose: 300 mg Azithromycin 250 mg/ Dextrose 250 mls @ 250 mls/hr IVPB DAILY [facility] Last Admin: 11/28/19 12:16 Dose: 250 mls/hr Piperacillin Sod/Tazobactam (Sod 3.375 gm/ Dextrose) 50 mls @ 100 mls/hr IVPB Q8H-IV [facility]; Protocol Last Admin: 11/28/19 09:53 Dose: 100 mls/hr Lactobacillus Acidophilus (Bacid -) 1 tab GT TID [facility] Last Admin: 11/28/19 14:10 Dose: 1 tab Levetiracetam (Keppra Oral Solution -) 500 mg GT BID [facility] Last Admin: 11/28/19 10:00 Dose: 500 mg Multivitamins/Minerals (Certavite-Antioxidant Liquid) 15 ml GT DAILY [facility] Last Admin: 11/28/19 09:59 Dose: 15 ml Non-Formulary Medication (Midodrine Hcl [Midodrine Hcl]) 10 mg PO DAILY [facility] A/P Chronic Respiratory Failure r/o PNA Anemia r/o GI Bleed h/o CVA Seizure Disorder - continue antibiotics - monitor H/H - continue assist control - poor candidate for weaning at this time - DVT prophylaxis
--- NOTE | 2019-11-28 14:59 | PN ---
Progress Note, Physician History of Present Illness: NOT RESPONSIVE ON VENTILATOR BC + MIXED ORGANISMS ? SIGNIFICANCE AFEBRILE NO ACUTE RESP DISTRESS - Current Medication List Current Medications: Active Medications Acetaminophen (Tylenol Oral Solution -) 650 mg PEG Q6H PRN PRN Reason: PAIN LEVEL 4 - 6 Last Admin: 11/28/19 02:54 Dose: 650 mg Ascorbic Acid (Vitamin C -) 500 mg GT DAILY [facility] Last Admin: 11/28/19 09:54 Dose: 500 mg Atorvastatin Calcium (Lipitor -) 80 mg GT HS [facility] Last Admin: 11/27/19 21:02 Dose: 80 mg Ferrous Sulfate (Feosol) 300 mg GT DAILY [facility] Last Admin: 11/28/19 09:54 Dose: 300 mg Azithromycin 250 mg/ Dextrose 250 mls @ 250 mls/hr IVPB DAILY [facility] Last Admin: 11/28/19 12:16 Dose: 250 mls/hr Piperacillin Sod/Tazobactam (Sod 3.375 gm/ Dextrose) 50 mls @ 100 mls/hr IVPB Q8H-IV [facility]; Protocol Last Admin: 11/28/19 09:53 Dose: 100 mls/hr Lactobacillus Acidophilus (Bacid -) 1 tab GT TID [facility] Last Admin: 11/28/19 14:10 Dose: 1 tab Levetiracetam (Keppra Oral Solution -) 500 mg GT BID [facility] Last Admin: 11/28/19 10:00 Dose: 500 mg Multivitamins/Minerals (Certavite-Antioxidant Liquid) 15 ml GT DAILY [facility] Last Admin: 11/28/19 09:59 Dose: 15 ml Non-Formulary Medication (Midodrine Hcl [Midodrine Hcl]) 10 mg PO DAILY [facility] - Objective Vital Signs: Vital Signs Temperature 98.2 F 11/28/19 12:00 Pulse Rate 71 11/28/19 12:00 Respiratory Rate 12 11/28/19 12:21 Blood Pressure 130/72 11/28/19 12:00 O2 Sat by Pulse Oximetry (%) 100 11/28/19 10:00 Constitutional: Yes: No Distress Cardiovascular: Yes: Regular Rate and Rhythm, S1, S2 Respiratory: Yes: Mechanically Ventilated Gastrointestinal: Yes: Normal Bowel Sounds, Soft. No: Tenderness Edema: Yes Labs: CBC, BMP 11/28/19 05:48 11/28/19 05:48 INR, PTT INR 1.54 (0.83-1.09) H 11/24/19 16:13 Assessment/Plan BIBASILAR PNEUMONIA R/O SEPSIS SECONDARY TO LUNG SOURCE + BC MIXED ORGANISMS ? SIGNIFICANCE CHRONIC RESP FAILURE ANEMIA CVA REPEAT BC PENDING CONTINUE ZOSYN/ ZITHROMAX
[2019-11-28] MEDS: PANTOPRAZOLE SODIUM 40 MG VIAL IVPUSH SCH (21:22)
[2019-11-28] MEDS: ATORVASTATIN CA 80 MG TABLET (FP) GT SCH (21:22)
[2019-11-29] MEDS: PIPERACILLIN/TAZOB 3.375 GM 3.375 GM in DEXTROSE 5%-WATER - 50 ML IVPB SCH ×3 (01:01→19:27)
[2019-11-29] MEDS: LACTOBACILLUS ACIDOPHILUS 1 TABLET GT SCH ×3 (06:01→22:04)
[2019-11-29 06:09] LABS: HEMOGLOBIN 9.5 GM/dL (10.7-15.3); MCHC 33.9 g/dl (32.0-36.0); MEAN CELL VOLUME 88.3 fl (80-96); MEAN PLT VOLUME 7.2 fl (7.5-11.1); PLATELET COUNT 364 K/MM3 (134-434); RBC 3.18 M/mm3 (3.60-5.2); RDW 19.6 % (11.6-15.6); WHITE BLOOD COUNT 7.9 K/mm3 (4.0-10.0)
[2019-11-29 06:33] LABS: INR 1.12 (0.83-1.09); PROTHROMBIN TIME (PATIENT) 13.2 SEC (9.7-13.0)
[2019-11-29 06:35] LABS: ACTIVATED PTT 21.4 SECONDS (25.2-36.5)
[2019-11-29 06:38] LABS: ALBUMIN 2.4 g/dl (3.4-5.0); BILIRUBIN,TOTAL 1.2 mg/dL (0.2-1); BLOOD UREA NITROGEN 13.1 mg/dL (7-18); CALCIUM 8.6 mg/dL (8.5-10.1); CREATININE 0.7 mg/dL (0.55-1.3); POTASSIUM 3.2 mmol/L (3.5-5.1); TOT PROT 6.5 g/dl (6.4-8.2)
[2019-11-29] MEDS ORDERED: POTASSIUM CHLORIDE ORAL LIQUID 20 MEQ/15 ML GT ONE (08:07)
--- NOTE | 2019-11-29 08:08 | PN ---
Progress Note, Physician Chief Complaint: LETHARGIC ON VENT VIA TRACH EVENTS REVIEWED PATIENT SCHEDULED FOR EGD TOMORROW FOR DARK TARRY STOOL/HEME + OCCULT - Current Medication List Current Medications: Active Medications Acetaminophen (Tylenol Oral Solution -) 650 mg PEG Q6H PRN PRN Reason: PAIN LEVEL 4 - 6 Last Admin: 11/28/19 02:54 Dose: 650 mg Ascorbic Acid (Vitamin C -) 500 mg GT DAILY [facility] Last Admin: 11/28/19 09:54 Dose: 500 mg Atorvastatin Calcium (Lipitor -) 80 mg GT HS [facility] Last Admin: 11/28/19 21:22 Dose: 80 mg Ferrous Sulfate (Feosol) 300 mg GT DAILY [facility] Last Admin: 11/28/19 09:54 Dose: 300 mg Azithromycin 250 mg/ Dextrose 250 mls @ 250 mls/hr IVPB DAILY [facility] Last Admin: 11/28/19 12:16 Dose: 250 mls/hr Piperacillin Sod/Tazobactam (Sod 3.375 gm/ Dextrose) 50 mls @ 100 mls/hr IVPB Q8H-IV [facility]; Protocol Last Admin: 11/29/19 01:01 Dose: 100 mls/hr Potassium Chloride (Potassium Chloride 10 Meq Premix Ivpb -) 10 meq in 100 mls @ 100 mls/hr IVPB Q60M [facility] Stop: 11/29/19 10:14 Lactobacillus Acidophilus (Bacid -) 1 tab GT TID [facility] Last Admin: 11/29/19 06:01 Dose: 1 tab Levetiracetam (Keppra Oral Solution -) 500 mg GT BID [facility] Last Admin: 11/28/19 21:25 Dose: 500 mg Multivitamins/Minerals (Certavite-Antioxidant Liquid) 15 ml GT DAILY [facility] Last Admin: 11/28/19 09:59 Dose: 15 ml Non-Formulary Medication (Midodrine Hcl [Midodrine Hcl]) 10 mg PO DAILY [facility] Pantoprazole Sodium (Protonix Iv) 40 mg IVPUSH BID [facility] Last Admin: 11/28/19 21:22 Dose: 40 mg Potassium Chloride (Potassium Chloride Oral Liquid) 20 meq GT ONCE ONE Stop: 11/29/19 08:08 - Objective Vital Signs: Vital Signs Temperature 97.6 F 11/29/19 08:00 Pulse Rate 76 11/29/19 08:00 Respiratory Rate 16 11/29/19 08:00 Blood Pressure 136/66 11/29/19 08:00 O2 Sat by Pulse Oximetry (%) 100 11/29/19 08:00 Constitutional: Yes: Mild Distress, Other (POOR STIMULI RESPONSE) Neck: Yes: Other (TRACHEOSTOMY) Cardiovascular: Yes: Pulse Irregular Respiratory: Yes: Diminished, Mechanically Ventilated Gastrointestinal: Yes: Soft, Other (GTUBE) Genitourinary: Yes: Incontinence Musculoskeletal: Yes: Muscle Weakness Integumentary: Yes: Pressure Ulcer, Rash, Other Neurological: Yes: Confusion, Weakness ...Motor Strength: LLE, RLE Psychiatric: Yes: Other Labs: CBC, BMP 11/29/19 05:40 11/29/19 05:40 INR, PTT INR 1.12 (0.83-1.09) H 11/29/19 05:40 Problem List - Problems (1) Afib Code(s): I48.91 - UNSPECIFIED ATRIAL FIBRILLATION (2) Anemia Code(s): D64.9 - ANEMIA, UNSPECIFIED (3) COPD (chronic obstructive pulmonary disease) Code(s): J44.9 - CHRONIC OBSTRUCTIVE PULMONARY DISEASE, UNSPECIFIED (4) CVA (cerebral vascular accident) Code(s): I63.9 - CEREBRAL INFARCTION, UNSPECIFIED (5) Fever Code(s): R50.9 - FEVER, UNSPECIFIED (6) Pneumonia Code(s): J18.9 - PNEUMONIA, UNSPECIFIED ORGANISM Qualifiers: Pneumonia type: due to unspecified organism Laterality: unspecified laterality Lung location: unspecified part of lung Qualified Code(s): J18.9 - Pneumonia, unspecified organism (7) Volume overload Code(s): E87.70 - FLUID OVERLOAD, UNSPECIFIED Qualifiers: Hypervolemia type: other Qualified Code(s): E87.79 - Other fluid overload Assessment/Plan GI WORKUP IS IN PROGRESS NPO EXCEPT MEDS MONITOR H/H TODAY SHOWS IMPROVEMENT STILL WITH DARK TARRY STOOLS HEME + MEDICALLY CLEARED FOR EGD THE BENEFIT AT THIS POINT OUTWEIGHS THE RISK. RESPIRATORY SUPPORT NOT A CANDIDATE TO WEAN OFF AT THIS TIME PULMONARY F/U APPRECIATED SEIZURE PRECAUTIONS ON KEPPRA PNEUMONIA ON ZOSYN/VANCO ABX NEBS ADVANCED DIRECTIVES NEED TO BE REVIEWED WITH THE FAMILY
[2019-11-29] MEDS ORDERED: PT OWN MED DRAWER 7, Y5N ONE ×5 (09:06→22:00)
[2019-11-29] MEDS ORDERED: PIPERACILLIN/TAZOBACTAM 3.375 GM VIAL IVPB ONE ×2 (09:07→16:46)
[2019-11-29] MEDS ORDERED: DEXTROSE 5%-WATER - 50 ML IVPB ONE ×2 (09:08→16:46)
[2019-11-29] MEDS: PANTOPRAZOLE SODIUM 40 MG VIAL IVPUSH SCH ×2 (09:09→22:04)
[2019-11-29] MEDS: ASCORBIC ACID 500 MG TABLET (FP) GT SCH (09:09)
[2019-11-29] MEDS: KCL 10 MEQ IVPB 10 MEQ/100 ML INFUS.BAG IVPB SCH ×2 (09:09→09:54)
[2019-11-29] MEDS: MULTIVIT-MINERALS ORAL LIQUID GT SCH (09:43)
[2019-11-29] MEDS: FERROUS SO4 300 MG/5 ML ORAL SOLN UNIT DOSE CUPS GT SCH (09:44)
[2019-11-29] MEDS: levETIRAcetam 500 MG/5 ML ORAL SOLUTION (UNIT-DOSE CUPS) GT SCH ×2 (09:44→22:08)
[2019-11-29] MEDS: AZITHROMYCIN IVPB 250 MG in DEXTROSE 5%-WATER - 250 ML IVPB SCH (10:38)
--- NOTE | 2019-11-29 12:23 | PN ---
Progress Note (short form) - Note Progress Note: PULMONARY Vented, poorly responsive. No fevers recorded. Vital Signs Period Temp Pulse Resp BP Sys/Cole Pulse Ox Last 24 Hr 97.3 F-98.3 F 64-79 9-16 111-155/53-99 100-100 Gen: vented, poorly responsive Heart: RRR Lung: decreased breath sounds at the bases Abd: soft, nontender Ext: no edema CBC, BMP 11/29/19 05:40 11/29/19 05:40 Active Medications Acetaminophen (Tylenol Oral Solution -) 650 mg PEG Q6H PRN PRN Reason: PAIN LEVEL 4 - 6 Last Admin: 11/28/19 02:54 Dose: 650 mg Ascorbic Acid (Vitamin C -) 500 mg GT DAILY [facility] Last Admin: 11/29/19 09:09 Dose: 500 mg Atorvastatin Calcium (Lipitor -) 80 mg GT HS [facility] Last Admin: 11/28/19 21:22 Dose: 80 mg Ferrous Sulfate (Feosol) 300 mg GT DAILY [facility] Last Admin: 11/29/19 09:44 Dose: 300 mg Piperacillin Sod/Tazobactam (Sod 3.375 gm/ Dextrose) 50 mls @ 100 mls/hr IVPB Q8H-IV [facility]; Protocol Last Admin: 11/29/19 09:09 Dose: 100 mls/hr Lactobacillus Acidophilus (Bacid -) 1 tab GT TID [facility] Last Admin: 11/29/19 06:01 Dose: 1 tab Levetiracetam (Keppra Oral Solution -) 500 mg GT BID [facility] Last Admin: 11/29/19 09:44 Dose: 500 mg Multivitamins/Minerals (Certavite-Antioxidant Liquid) 15 ml GT DAILY [facility] Last Admin: 11/29/19 09:43 Dose: 15 ml Non-Formulary Medication (Midodrine Hcl [Midodrine Hcl]) 10 mg PO DAILY [facility] Pantoprazole Sodium (Protonix Iv) 40 mg IVPUSH BID [facility] Last Admin: 11/29/19 09:09 Dose: 40 mg A/P Chronic Respiratory Failure r/o PNA Anemia r/o GI Bleed h/o CVA Seizure Disorder - continue antibiotics - monitor H/H - continue assist control - poor candidate for weaning at this time due to mental status - DVT prophylaxis
--- NOTE | 2019-11-29 16:09 | PN ---
Progress Note (short form) - Note Progress Note: Patient seen and examined Poorly responsive to verbal or painful stimuli Last Vital Signs Temp Pulse Resp BP Pulse Ox 97.4 F L 69 15 118/74 100 11/29/19 15:49 11/29/19 15:49 11/29/19 15:49 11/29/19 15:49 11/29/19 08:00 HEENT: IGOR, EOM Intact Oropharynx: No thrush, No mucositis Cor: atrial fib , No murmurs, No gallops Lungs:vent sounds Abd: Soft, Normal bowel sounds, No organomegaly,PEG Ext:No significant edema Skin: No rashes, Integument intact CBC, BMP 11/29/19 05:40 11/29/19 05:40 Current Medications Generic Name Dose Route Start Last Admin Trade Name Freq PRN Reason Stop Dose Admin Acetaminophen 650 mg 11/28/19 01:32 11/28/19 02:54 Tylenol Oral Solution - PEG 650 mg Q6H PRN Administration PAIN LEVEL 4 - 6 Ascorbic Acid 500 mg 11/27/19 19:01 11/29/19 09:09 Vitamin C - GT 500 mg DAILY [facility] Administration Atorvastatin Calcium 80 mg 11/27/19 18:58 11/28/19 21:22 Lipitor - GT 80 mg HS [facility] Administration Ferrous Sulfate 300 mg 11/27/19 18:58 11/29/19 09:44 Feosol GT 300 mg DAILY [facility] Administration Piperacillin Sod/Tazobactam 50 mls @ 100 mls/hr 11/25/19 18:00 11/29/19 09:09 Sod 3.375 gm/ Dextrose IVPB 100 mls/hr Q8H-IV [facility] Administration Protocol Lactobacillus Acidophilus 1 tab 11/27/19 18:58 11/29/19 15:44 Bacid - GT 1 tab TID [facility] Administration Levetiracetam 500 mg 11/27/19 22:00 11/29/19 09:44 Keppra Oral Solution - GT 500 mg BID [facility] Administration Multivitamins/Minerals 15 ml 11/28/19 10:00 11/29/19 09:43 Certavite-Antioxidant Liquid GT 15 ml DAILY [facility] Administration Non-Formulary Medication 10 mg 11/25/19 10:00 Midodrine Hcl [Midodrine Hcl] PO DAILY [facility] Pantoprazole Sodium 40 mg 11/28/19 22:00 02/18/20 09:09 Protonix Iv IVPUSH 40 mg BID [facility] Administration impression: Hct currently stable Corrected retic count - 2%+ Gabby positive - but no evidence of hemolysis Lab drawn after initial evaluation likely spurious. Dark black - stool - repeat testing, but on Fe++ therapy. C
[2019-11-29] MEDS ORDERED: HEPARIN NA (PORCINE) 5,000 UNITS/ML 1ML VIAL IVPUSH PRN (16:40)
--- NOTE | 2019-11-29 16:42 | PN ---
Progress Note (short form) - Note Progress Note: ADDENDUM: WILL START AC FOR HISTORY OF EMBOLIC CVA. MONITOR H/H, DC HEPARIN DRIP 6HRS BEFORE EGD Problem List - Problems (1) Afib Code(s): I48.91 - UNSPECIFIED ATRIAL FIBRILLATION (2) Anemia Code(s): D64.9 - ANEMIA, UNSPECIFIED (3) COPD (chronic obstructive pulmonary disease) Code(s): J44.9 - CHRONIC OBSTRUCTIVE PULMONARY DISEASE, UNSPECIFIED (4) CVA (cerebral vascular accident) Code(s): I63.9 - CEREBRAL INFARCTION, UNSPECIFIED (5) Fever Code(s): R50.9 - FEVER, UNSPECIFIED (6) Pneumonia Code(s): J18.9 - PNEUMONIA, UNSPECIFIED ORGANISM Qualifiers: Pneumonia type: due to unspecified organism Laterality: unspecified laterality Lung location: unspecified part of lung Qualified Code(s): J18.9 - Pneumonia, unspecified organism (7) Volume overload Code(s): E87.70 - FLUID OVERLOAD, UNSPECIFIED Qualifiers: Hypervolemia type: other Qualified Code(s): E87.79 - Other fluid overload
--- NOTE | 2019-11-29 18:10 | PN ---
Progress Note, Physician History of Present Illness: MORE RESPONSIVE ON VENTILATOR AFEBRILE NO ACUTE RESP DISTRESS - Current Medication List Current Medications: Active Medications Acetaminophen (Tylenol Oral Solution -) 650 mg PEG Q6H PRN PRN Reason: PAIN LEVEL 4 - 6 Last Admin: 11/28/19 02:54 Dose: 650 mg Ascorbic Acid (Vitamin C -) 500 mg GT DAILY [facility] Last Admin: 11/29/19 09:09 Dose: 500 mg Atorvastatin Calcium (Lipitor -) 80 mg GT HS [facility] Last Admin: 11/28/19 21:22 Dose: 80 mg Ferrous Sulfate (Feosol) 300 mg GT DAILY [facility] Last Admin: 11/29/19 09:44 Dose: 300 mg Heparin Sodium (Porcine) (Heparin -) 1,000 unit IVPUSH PRN PRN PRN Reason: Heparin Heparin Sodium (Porcine) (Heparin -) 5,000 unit IVPUSH PRN PRN PRN Reason: Heparin Piperacillin Sod/Tazobactam (Sod 3.375 gm/ Dextrose) 50 mls @ 100 mls/hr IVPB Q8H-IV [facility]; Protocol Last Admin: 11/29/19 09:09 Dose: 100 mls/hr Heparin Sodium (Porcine) 25, (000 unit/ Sodium Chloride) 500 mls @ 16 mls/hr IV TITR [facility]; Protocol Lactobacillus Acidophilus (Bacid -) 1 tab GT TID [facility] Last Admin: 11/29/19 15:44 Dose: 1 tab Levetiracetam (Keppra Oral Solution -) 500 mg GT BID [facility] Last Admin: 11/29/19 09:44 Dose: 500 mg Multivitamins/Minerals (Certavite-Antioxidant Liquid) 15 ml GT DAILY [facility] Last Admin: 11/29/19 09:43 Dose: 15 ml Non-Formulary Medication (Midodrine Hcl [Midodrine Hcl]) 10 mg PO DAILY [facility] Pantoprazole Sodium (Protonix Iv) 40 mg IVPUSH BID [facility] Last Admin: 11/29/19 09:09 Dose: 40 mg - Objective Vital Signs: Vital Signs Temperature 97.4 F L 11/29/19 15:49 Pulse Rate 69 11/29/19 15:49 Respiratory Rate 15 11/29/19 15:49 Blood Pressure 118/74 11/29/19 15:49 O2 Sat by Pulse Oximetry (%) 100 11/29/19 08:00 Constitutional: Yes: No Distress Cardiovascular: Yes: Regular Rate and Rhythm, S1, S2 Respiratory: Yes: Mechanically Ventilated Gastrointestinal: Yes: Normal Bowel Sounds Labs: CBC, BMP 11/29/19 05:40 11/29/19 05:40 INR, PTT INR 1.12 (0.83-1.09) H 11/29/19 05:40 Assessment/Plan BIBASILAR PNEUMONIA R/O SEPSIS SECONDARY TO LUNG SOURCE + BC MIXED ORGANISMS ? SIGNIFICANCE CHRONIC RESP FAILURE ANEMIA CVA CONTINUE ZOSYN
[2019-11-29] MEDS: HEPARIN - 25,000 UNIT in SODIUM CHLORIDE 495 ML IV SCH (18:17)
--- NOTE | 2019-11-29 19:37 | PN ---
Progress Note (short form) - Note Progress Note: Patient cleared by medicine for EGD. heparin will be held in AM. EGD to evaluate for potential UGI bleeding lesion prior to restarting A/C. Problem List - Problems (1) Anemia Code(s): D64.9 - ANEMIA, UNSPECIFIED
[2019-11-29] MEDS: ATORVASTATIN CA 80 MG TABLET (FP) GT SCH (22:04)
[2019-11-30] MEDS ORDERED: DEXTROSE 5%-WATER - 50 ML IVPB ONE ×4 (01:25→21:30)
[2019-11-30] MEDS ORDERED: PIPERACILLIN/TAZOBACTAM 3.375 GM VIAL IVPB ONE ×4 (01:25→21:30)
[2019-11-30] MEDS: HEPARIN - 25,000 UNIT in SODIUM CHLORIDE 495 ML IV SCH ×2 (01:27→22:57)
[2019-11-30] MEDS: HEPARIN NA (PORCINE) 5,000 UNITS/ML 1ML VIAL IVPUSH PRN ×2 (01:27→23:03)
[2019-11-30] MEDS: PIPERACILLIN/TAZOB 3.375 GM 3.375 GM in DEXTROSE 5%-WATER - 50 ML IVPB SCH ×3 (01:34→17:48)
[2019-11-30] MEDS: LACTOBACILLUS ACIDOPHILUS 1 TABLET GT SCH ×3 (05:37→21:31)
[2019-11-30 06:36] LABS: HEMATOCRIT 29.5 % (32.4-45.2); HEMOGLOBIN 9.9 GM/dL (10.7-15.3); MCH 29.7 pg (25.7-33.7); MCHC 33.4 g/dl (32.0-36.0); MEAN CELL VOLUME 88.9 fl (80-96); PLATELET COUNT 363 K/MM3 (134-434); RBC 3.32 M/mm3 (3.60-5.2); RDW 19.4 % (11.6-15.6); WHITE BLOOD COUNT 7.1 K/mm3 (4.0-10.0)
[2019-11-30 06:52] LABS: BLOOD UREA NITROGEN 12.2 mg/dL (7-18); CALCIUM 8.4 mg/dL (8.5-10.1); CREATININE 0.6 mg/dL (0.55-1.3); MAGNESIUM 1.9 mg/dL (1.8-2.4); POTASSIUM 3.5 mmol/L (3.5-5.1)
--- NOTE | 2019-11-30 09:22 | PN ---
Progress Note, Physician Chief Complaint: IN BED LETHARGIC CLEARED MEDICALLY FOR EGD - Current Medication List Current Medications: Active Medications Acetaminophen (Tylenol Oral Solution -) 650 mg PEG Q6H PRN PRN Reason: PAIN LEVEL 4 - 6 Last Admin: 11/28/19 02:54 Dose: 650 mg Ascorbic Acid (Vitamin C -) 500 mg GT DAILY [facility] Last Admin: 11/29/19 09:09 Dose: 500 mg Atorvastatin Calcium (Lipitor -) 80 mg GT HS [facility] Last Admin: 11/29/19 22:04 Dose: 80 mg Ferrous Sulfate (Feosol) 300 mg GT DAILY [facility] Last Admin: 11/29/19 09:44 Dose: 300 mg Heparin Sodium (Porcine) (Heparin -) 1,000 unit IVPUSH PRN PRN PRN Reason: Heparin Heparin Sodium (Porcine) (Heparin -) 5,000 unit IVPUSH PRN PRN PRN Reason: Heparin Last Admin: 11/30/19 01:27 Dose: 5,000 unit Piperacillin Sod/Tazobactam (Sod 3.375 gm/ Dextrose) 50 mls @ 100 mls/hr IVPB Q8H-IV [facility]RNA[facility]; Protocol Last Admin: 11/30/19 01:34 Dose: 100 mls/hr Heparin Sodium (Porcine) 25, (000 unit/ Sodium Chloride) 500 mls @ 16 mls/hr IV TITR [facility]; Protocol Last Admin: 11/30/19 01:27 Dose: 950 unit/hr, 19 mls/hr Lactobacillus Acidophilus (Bacid -) 1 tab GT TID [facility] Last Admin: 11/30/19 05:37 Dose: 1 tab Levetiracetam (Keppra Oral Solution -) 500 mg GT BID [facility] Last Admin: 11/29/19 22:08 Dose: 500 mg Multivitamins/Minerals (Certavite-Antioxidant Liquid) 15 ml GT DAILY [facility] Last Admin: 11/29/19 09:43 Dose: 15 ml Non-Formulary Medication (Midodrine Hcl [Midodrine Hcl]) 10 mg PO DAILY [facility] Pantoprazole Sodium (Protonix Iv) 40 mg IVPUSH BID [facility] Last Admin: 11/29/19 22:04 Dose: 40 mg - Objective Vital Signs: Vital Signs Temperature 98.7 F 11/30/19 05:39 Pulse Rate 79 11/30/19 05:39 Respiratory Rate 12 11/30/19 05:39 Blood Pressure 128/82 11/30/19 05:39 O2 Sat by Pulse Oximetry (%) 100 11/29/19 21:00 Constitutional: Yes: Moderate Distress Cardiovascular: Yes: Pulse Irregular Respiratory: Yes: Diminished, Mechanically Ventilated Gastrointestinal: Yes: Soft Musculoskeletal: Yes: Muscle Weakness Edema: No Integumentary: Yes: Venous Stasis Changes Wound/Incision: Yes: Dressing Dry and Intact Neurological: Yes: Confusion, Pre-Existing Deficit, Weakness Psychiatric: Yes: Other Labs: CBC, BMP 11/30/19 05:35 11/30/19 05:35 INR, PTT INR 1.12 (0.83-1.09) H 11/29/19 05:40 Problem List - Problems (1) Afib Code(s): I48.91 - UNSPECIFIED ATRIAL FIBRILLATION (2) Anemia Code(s): D64.9 - ANEMIA, UNSPECIFIED (3) COPD (chronic obstructive pulmonary disease) Code(s): J44.9 - CHRONIC OBSTRUCTIVE PULMONARY DISEASE, UNSPECIFIED (4) CVA (cerebral vascular accident) Code(s): I63.9 - CEREBRAL INFARCTION, UNSPECIFIED (5) Fever Code(s): R50.9 - FEVER, UNSPECIFIED (6) Pneumonia Code(s): J18.9 - PNEUMONIA, UNSPECIFIED ORGANISM Qualifiers: Pneumonia type: due to unspecified organism Laterality: unspecified laterality Lung location: unspecified part of lung Qualified Code(s): J18.9 - Pneumonia, unspecified organism (7) Volume overload Code(s): E87.70 - FLUID OVERLOAD, UNSPECIFIED Qualifiers: Hypervolemia type: other Qualified Code(s): E87.79 - Other fluid overload Assessment/Plan GI WORKUP IS IN PROGRESS NPO EXCEPT MEDS HEPARIN IV ON HOLD FOR EGD MONITOR H/H TODAY SHOWS IMPROVEMENT STILL WITH DARK TARRY STOOLS HEME + MEDICALLY CLEARED FOR EGD THE BENEFIT AT THIS POINT OUTWEIGHS THE RISK. RESPIRATORY SUPPORT NOT A CANDIDATE TO WEAN OFF AT THIS TIME PULMONARY F/U APPRECIATED SEIZURE PRECAUTIONS ON KEPPRA PNEUMONIA ON ZOSYN/VANCO ABX NEBS ADVANCED DIRECTIVES NEED TO BE REVIEWED WITH THE FAMILY
[2019-11-30] MEDS: PANTOPRAZOLE SODIUM 40 MG VIAL IVPUSH SCH ×2 (09:38→21:31)
[2019-11-30] MEDS: MULTIVIT-MINERALS ORAL LIQUID GT SCH (09:39)
[2019-11-30] MEDS: FERROUS SO4 300 MG/5 ML ORAL SOLN UNIT DOSE CUPS GT SCH (09:39)
[2019-11-30] MEDS: levETIRAcetam 500 MG/5 ML ORAL SOLUTION (UNIT-DOSE CUPS) GT SCH ×2 (09:40→21:31)
[2019-11-30] MEDS: ASCORBIC ACID 500 MG TABLET (FP) GT SCH (09:40)
--- NOTE | 2019-11-30 11:05 | PN ---
Progress Note, Physician History of Present Illness: EYES OPEN ON VENTILATOR BUT DOES NOT FOLLOW AFEBRILE NO ACUTE RESP DISTRESS - Current Medication List Current Medications: Active Medications Acetaminophen (Tylenol Oral Solution -) 650 mg PEG Q6H PRN PRN Reason: PAIN LEVEL 4 - 6 Last Admin: 11/28/19 02:54 Dose: 650 mg Ascorbic Acid (Vitamin C -) 500 mg GT DAILY [facility] Last Admin: 11/30/19 09:40 Dose: Not Given Atorvastatin Calcium (Lipitor -) 80 mg GT HS [facility] Last Admin: 11/29/19 22:04 Dose: 80 mg Ferrous Sulfate (Feosol) 300 mg GT DAILY [facility] Last Admin: 11/30/19 09:39 Dose: Not Given Heparin Sodium (Porcine) (Heparin -) 1,000 unit IVPUSH PRN PRN PRN Reason: Heparin Heparin Sodium (Porcine) (Heparin -) 5,000 unit IVPUSH PRN PRN PRN Reason: Heparin Last Admin: 11/30/19 01:27 Dose: 5,000 unit Piperacillin Sod/Tazobactam (Sod 3.375 gm/ Dextrose) 50 mls @ 100 mls/hr IVPB Q8H-IV ARNAV; Protocol Last Admin: 11/30/19 09:38 Dose: 100 mls/hr Heparin Sodium (Porcine) 25, (000 unit/ Sodium Chloride) 500 mls @ 16 mls/hr IV TITR [facility]RNA[facility]; Protocol Last Admin: 11/30/19 01:27 Dose: 950 unit/hr, 19 mls/hr Lactobacillus Acidophilus (Bacid -) 1 tab GT TID [facility] Last Admin: 11/30/19 05:37 Dose: 1 tab Levetiracetam (Keppra Oral Solution -) 500 mg GT BID [facility] Last Admin: 11/30/19 09:40 Dose: Not Given Multivitamins/Minerals (Certavite-Antioxidant Liquid) 15 ml GT DAILY [facility] Last Admin: 11/30/19 09:39 Dose: Not Given Non-Formulary Medication (Midodrine Hcl [Midodrine Hcl]) 10 mg PO DAILY [facility] Pantoprazole Sodium (Protonix Iv) 40 mg IVPUSH BID [facility] Last Admin: 11/30/19 09:38 Dose: 40 mg - Objective Vital Signs: Vital Signs Temperature 98.7 F 11/30/19 05:39 Pulse Rate 79 11/30/19 05:39 Respiratory Rate 12 11/30/19 05:39 Blood Pressure 128/82 11/30/19 05:39 O2 Sat by Pulse Oximetry (%) 100 11/29/19 21:00 Constitutional: Yes: No Distress, Obese Cardiovascular: Yes: Regular Rate and Rhythm, S1, S2 Respiratory: Yes: Mechanically Ventilated Gastrointestinal: Yes: Normal Bowel Sounds, Soft, Abdomen, Obese. No: Tenderness Edema: Yes Labs: CBC, BMP 11/30/19 05:35 11/30/19 05:35 INR, PTT INR 1.12 (0.83-1.09) H 11/29/19 05:40 Assessment/Plan BIBASILAR PNEUMONIA R/O SEPSIS SECONDARY TO LUNG SOURCE + BC MIXED ORGANISMS ? SIGNIFICANCE CHRONIC RESP FAILURE ANEMIA CVA CONTINUE ZOSYN
--- NOTE | 2019-11-30 12:21 | PN ---
Progress Note (short form) - Note Progress Note: PULMONARY Vented, poorly responsive. No fevers recorded. Vital Signs Period Temp Pulse Resp BP Sys/Cole Pulse Ox Last 24 Hr 97.4 F-98.7 F 66-82 12-27 113-139/56-82 100-100 Gen: vented, poorly responsive Heart: RRR Lung: decreased breath sounds at the bases Abd: soft, nontender Ext: no edema CBC, BMP 11/30/19 05:35 11/30/19 05:35 Active Medications Acetaminophen (Tylenol Oral Solution -) 650 mg PEG Q6H PRN PRN Reason: PAIN LEVEL 4 - 6 Last Admin: 11/28/19 02:54 Dose: 650 mg Ascorbic Acid (Vitamin C -) 500 mg GT DAILY [facility]S [facility] Last Admin: 11/30/19 09:40 Dose: Not Given Atorvastatin Calcium (Lipitor -) 80 mg GT HS [facility] Last Admin: 11/29/19 22:04 Dose: 80 mg Ferrous Sulfate (Feosol) 300 mg GT DAILY [facility] Last Admin: 11/30/19 09:39 Dose: Not Given Heparin Sodium (Porcine) (Heparin -) 1,000 unit IVPUSH PRN PRN PRN Reason: Heparin Heparin Sodium (Porcine) (Heparin -) 5,000 unit IVPUSH PRN PRN PRN Reason: Heparin Last Admin: 11/30/19 01:27 Dose: 5,000 unit Piperacillin Sod/Tazobactam (Sod 3.375 gm/ Dextrose) 50 mls @ 100 mls/hr IVPB Q8H-IV [facility]RNA[facility]; Protocol Last Admin: 11/30/19 09:38 Dose: 100 mls/hr Heparin Sodium (Porcine) 25, (000 unit/ Sodium Chloride) 500 mls @ 16 mls/hr IV TITR [facility]; Protocol Last Admin: 11/30/19 01:27 Dose: 950 unit/hr, 19 mls/hr Lactobacillus Acidophilus (Bacid -) 1 tab GT TID [facility] Last Admin: 11/30/19 05:37 Dose: 1 tab Levetiracetam (Keppra Oral Solution -) 500 mg GT BID [facility] Last Admin: 11/30/19 09:40 Dose: Not Given Multivitamins/Minerals (Certavite-Antioxidant Liquid) 15 ml GT DAILY [facility] 234 BEDS AT [facility] Last Admin: 11/30/19 09:39 Dose: Not Given Non-Formulary Medication (Midodrine Hcl [Midodrine Hcl]) 10 mg PO DAILY [facility] 234 BEDS AT [facility] Pantoprazole Sodium (Protonix Iv) 40 mg IVPUSH BID [facility] 234 BEDS AT [facility] Last Admin: 11/30/19 09:38 Dose: 40 mg A/P Chronic Respiratory Failure Pneumonia Atrial Fibrillation Anemia r/o GI Bleed h/o CVA Seizure Disorder - continue antibiotics - monitor H/H - continue assist control - poor candidate for weaning at this time due to mental status - DVT prophylaxis
--- NOTE | 2019-11-30 19:50 | PN ---
Progress Note (short form) - Note Progress Note: Brief GI note EGD performed today revealing antral erythema and nodularity otherwise no obvious source of bleeding. Biopsies taken. See scanned report for details. No obvious contraindication to anticoagulation based on findings on this exam.
[2019-11-30] MEDS: ATORVASTATIN CA 80 MG TABLET (FP) GT SCH (21:31)
[2019-12-01] MEDS: PIPERACILLIN/TAZOB 3.375 GM 3.375 GM in DEXTROSE 5%-WATER - 50 ML IVPB SCH (02:39)
[2019-12-01] MEDS: LACTOBACILLUS ACIDOPHILUS 1 TABLET GT SCH ×3 (05:47→22:43)
[2019-12-01 06:15] LABS: HEMATOCRIT 29.1 % (32.4-45.2); HEMOGLOBIN 9.5 GM/dL (10.7-15.3); MCH 29.1 pg (25.7-33.7); MCHC 32.7 g/dl (32.0-36.0); MEAN CELL VOLUME 88.8 fl (80-96); MEAN PLT VOLUME 7.5 fl (7.5-11.1); PLATELET COUNT 333 K/MM3 (134-434); RBC 3.28 M/mm3 (3.60-5.2); RDW 19.8 % (11.6-15.6); WHITE BLOOD COUNT 6.3 K/mm3 (4.0-10.0)
[2019-12-01] MEDS: HEPARIN NA (PORCINE) 5,000 UNITS/ML 1ML VIAL IVPUSH PRN (08:15)
--- NOTE | 2019-12-01 09:05 | PN ---
Progress Note, Physician Chief Complaint: EVENTS AND NOTES REVIEWED BY GI AND APPRECIATED EGD SHOWED GASTRITIS NO OBVIOUS ULCERS OR BLEEDS =INFLAMMATION GASTRITIS PATIENT NONVERBAL LETHARGIC FULL CODE - Current Medication List Current Medications: Active Medications Acetaminophen (Tylenol Oral Solution -) 650 mg PEG Q6H PRN PRN Reason: PAIN LEVEL 4 - 6 Last Admin: 11/28/19 02:54 Dose: 650 mg Apixaban (Eliquis -) 5 mg PO BID [facility] Ascorbic Acid (Vitamin C -) 500 mg GT DAILY [facility] Last Admin: 11/30/19 09:40 Dose: Not Given Atorvastatin Calcium (Lipitor -) 80 mg GT HS [facility] Last Admin: 11/30/19 21:31 Dose: 80 mg Ferrous Sulfate (Feosol) 300 mg GT DAILY [facility] Last Admin: 11/30/19 09:39 Dose: Not Given Lactobacillus Acidophilus (Bacid -) 1 tab GT TID [facility] Last Admin: 12/01/19 05:47 Dose: 1 tab Levetiracetam (Keppra Oral Solution -) 500 mg GT BID [facility] Last Admin: 11/30/19 21:31 Dose: 500 mg Multivitamins/Minerals (Certavite-Antioxidant Liquid) 15 ml GT DAILY [facility] Last Admin: 11/30/19 09:39 Dose: Not Given Non-Formulary Medication (Midodrine Hcl [Midodrine Hcl]) 10 mg PO DAILY [facility] Pantoprazole Sodium (Protonix Packets For Oral Suspension -) 40 mg PO DAILY [facility] - Objective Vital Signs: Vital Signs Temperature 98.1 F 12/01/19 06:00 Pulse Rate 61 12/01/19 08:23 Respiratory Rate 12 12/01/19 08:23 Blood Pressure 115/70 12/01/19 06:00 O2 Sat by Pulse Oximetry (%) 100 12/01/19 08:23 Constitutional: Yes: Other Cardiovascular: Yes: Pulse Irregular Respiratory: Yes: Diminished, Mechanically Ventilated Gastrointestinal: Yes: Other Genitourinary: Yes: Incontinence Musculoskeletal: Yes: Muscle Weakness Edema: No Integumentary: Yes: Rash, Venous Stasis Changes Wound/Incision: Yes: Dressing Dry and Intact Neurological: Yes: Aphasia, Ataxia, Pre-Existing Deficit Psychiatric: Yes: Other Labs: CBC, BMP 12/01/19 05:25 11/30/19 05:35 INR, PTT INR 1.12 (0.83-1.09) H 11/29/19 05:40 Problem List - Problems (1) Afib Code(s): I48.91 - UNSPECIFIED ATRIAL FIBRILLATION (2) Anemia Code(s): D64.9 - ANEMIA, UNSPECIFIED (3) COPD (chronic obstructive pulmonary disease) Code(s): J44.9 - CHRONIC OBSTRUCTIVE PULMONARY DISEASE, UNSPECIFIED (4) CVA (cerebral vascular accident) Code(s): I63.9 - CEREBRAL INFARCTION, UNSPECIFIED (5) Fever Code(s): R50.9 - FEVER, UNSPECIFIED (6) Pneumonia Code(s): J18.9 - PNEUMONIA, UNSPECIFIED ORGANISM Qualifiers: Pneumonia type: due to unspecified organism Laterality: unspecified laterality Lung location: unspecified part of lung Qualified Code(s): J18.9 - Pneumonia, unspecified organism (7) Volume overload Code(s): E87.70 - FLUID OVERLOAD, UNSPECIFIED Qualifiers: Hypervolemia type: other Qualified Code(s): E87.79 - Other fluid overload Assessment/Plan CHANGE ALL MEDS TO GT NO CONTRAINDICATION TO START ELIQUIS FOR AC STOP ANTIBIOTICS FOR NOW REPEAT BLOOD CULTURE CXR TODAY REPEAT CBC IN AM GI F/U APPRECIATED CHECK STOOL OCCULT TODAY RESTART TUBE FEEDS DISCUSSED WITH NURSING STAFF
[2019-12-01] MEDS ORDERED: PT OWN MED DRAWER 7, Y5N ONE ×4 (09:40→22:58)
[2019-12-01] MEDS ORDERED: PANTOPRAZOLE SOD 40 MG SUSPENSION PACKET PO SCH (10:00)
[2019-12-01] MEDS: FERROUS SO4 300 MG/5 ML ORAL SOLN UNIT DOSE CUPS GT SCH (10:06)
[2019-12-01] MEDS: ASCORBIC ACID 500 MG TABLET (FP) GT SCH (10:06)
[2019-12-01] MEDS: levETIRAcetam 500 MG/5 ML ORAL SOLUTION (UNIT-DOSE CUPS) GT SCH ×2 (10:06→22:43)
[2019-12-01] MEDS: MULTIVIT-MINERALS ORAL LIQUID GT SCH (10:06)
[2019-12-01] MEDS: APIXABAN 5 MG TABLET PO SCH ×2 (10:38→22:43)
--- NOTE | 2019-12-01 12:36 | PN ---
Progress Note (short form) - Note Progress Note: PULMONARY Vented, poorly responsive. No fevers recorded. Vital Signs Period Temp Pulse Resp BP Sys/Cole Pulse Ox Last 24 Hr 97.2 F-98.5 F 61-88 12-25 88-142/53-88 100-100 Gen: vented, poorly responsive Heart: RRR Lung: decreased breath sounds at the bases Abd: soft, nontender Ext: no edema CBC, BMP 12/01/19 05:25 11/30/19 05:35 Active Medications Acetaminophen (Tylenol Oral Solution -) 650 mg PEG Q6H PRN PRN Reason: PAIN LEVEL 4 - 6 Last Admin: 11/28/19 02:54 Dose: 650 mg Apixaban (Eliquis -) 5 mg PO BID [facility] Last Admin: 12/01/19 10:38 Dose: 5 mg Ascorbic Acid (Vitamin C -) 500 mg GT DAILY [facility] Last Admin: 12/01/19 10:06 Dose: 500 mg Atorvastatin Calcium (Lipitor -) 80 mg GT HS [facility] Last Admin: 11/30/19 21:31 Dose: 80 mg Famotidine (Pepcid) 20 mg NGT BID [facility] Ferrous Sulfate (Feosol) 300 mg GT DAILY [facility] Last Admin: 12/01/19 10:06 Dose: 300 mg Lactobacillus Acidophilus (Bacid -) 1 tab GT TID [facility] Last Admin: 12/01/19 05:47 Dose: 1 tab Levetiracetam (Keppra Oral Solution -) 500 mg GT BID [facility] Last Admin: 12/01/19 10:06 Dose: 500 mg Multivitamins/Minerals (Certavite-Antioxidant Liquid) 15 ml GT DAILY [facility] Last Admin: 12/01/19 10:06 Dose: 15 ml Non-Formulary Medication (Midodrine Hcl [Midodrine Hcl]) 10 mg PO DAILY [facility] A/P Chronic Respiratory Failure Pneumonia Atrial Fibrillation Anemia r/o GI Bleed h/o CVA Seizure Disorder - monitoring off antibiotics - rate controlled - resume anticoagulation - monitor H/H - continue assist control - poor candidate for weaning at this time due to mental status - DVT prophylaxis
[2019-12-01] MEDS: ATORVASTATIN CA 80 MG TABLET (FP) GT SCH (22:43)
[2019-12-01] MEDS: FAMOTIDINE 40 MG/5 ML ORAL SUSPENSION NGT SCH (22:44)
[2019-12-02] MEDS: LACTOBACILLUS ACIDOPHILUS 1 TABLET GT SCH ×3 (05:14→21:44)
[2019-12-02 06:52] LABS: HEMOGLOBIN 9.8 GM/dL (10.7-15.3); MCH 29.7 pg (25.7-33.7); MCHC 33.7 g/dl (32.0-36.0); MEAN PLT VOLUME 7.2 fl (7.5-11.1); PLATELET COUNT 332 K/MM3 (134-434); RBC 3.29 M/mm3 (3.60-5.2); RDW 19.4 % (11.6-15.6); WHITE BLOOD COUNT 6.1 K/mm3 (4.0-10.0)
[2019-12-02 07:21] LABS: BLOOD UREA NITROGEN 12.2 mg/dL (7-18); CALCIUM 8.3 mg/dL (8.5-10.1); CREATININE 0.6 mg/dL (0.55-1.3); POTASSIUM 3.2 mmol/L (3.5-5.1)
--- NOTE | 2019-12-02 08:35 | DS ---
Physical Examination Vital Signs: Vital Signs Temperature 97.9 F 12/02/19 06:00 Pulse Rate 62 12/02/19 08:10 Respiratory Rate 12 12/02/19 08:22 Blood Pressure 97/51 L 12/02/19 06:00 O2 Sat by Pulse Oximetry (%) 100 12/02/19 08:22 Cardiovascular: Yes: S1, S2 Respiratory: Yes: Mechanically Ventilated Gastrointestinal: Yes: Normal Bowel Sounds, Soft Labs: CBC, BMP 12/02/19 06:05 12/02/19 06:05 Discharge Summary Problems reviewed: Yes Reason For Visit: PNEUMONIA Current Active Problems Afib (Acute) Anemia (Acute) CHF (congestive heart failure) (Acute) COPD (chronic obstructive pulmonary disease) (Acute) CVA (cerebral vascular accident) (Acute) Fever (Acute) Pneumonia (Acute) Volume overload (Acute) Hospital Course: Chronic Respiratory Failure Pneumonia Atrial Fibrillation Anemia r/o GI Bleed---- h/o CVA EGD performed today revealing antral erythema and nodularity otherwise no obvious source of bleeding. Biopsies taken. See scanned report for details. No obvious contraindication to anticoagulation based on findings on this exam. Seizure Disorder - Problems (1) Anemia Assessment/Plan: S/P PRBC-Repeat pending STOOL FOR OCCULT BLOOD Negative GI AND HEM HOLD ELIQUIS Code(s): D64.9 - ANEMIA, UNSPECIFIED (2) Fever Assessment/Plan: OFF IV ABX PER ID ID CONSULT appreciated Code(s): R50.9 - FEVER, UNSPECIFIED (3) CVA (cerebral vascular accident) Assessment/Plan: old Code(s): I63.9 - CEREBRAL INFARCTION, UNSPECIFIED (4) Afib Assessment/Plan: HOLD AC DUE TO SEVERE ANEMIA CARDIO Code(s): I48.91 - UNSPECIFIED ATRIAL FIBRILLATION (5) COPD (chronic obstructive pulmonary disease) Assessment/Plan: PULM ON BOARD Code(s): J44.9 - CHRONIC OBSTRUCTIVE PULMONARY DISEASE, UNSPECIFIED (6) CHF (congestive heart failure) Assessment/Plan: MONITOR --HOLD LASIX DUE TO HYPOTENSION CXR Code(s): I50.9 - HEART FAILURE, UNSPECIFIED dc planning snf Condition: Stable - Instructions Diet, Activity, Other Instructions: cbc cmp thursday cbc q week Referrals: Aris Wheatley MD [Primary Care Provider] - Disposition: LONG-TERM FACILITY - Home Medications Comprehensive Discharge Medication List: Ambulatory Orders Acetaminophen 650 mg PO QID 11/24/19 Apixaban [Eliquis] 5 mg PO BID 11/24/19 Ascorbic Acid 500 mg PO DAILY 11/24/19 Atorvastatin Ca [Lipitor] 80 mg PO HS 11/24/19 Ferrous Sulfate [Feosol] 300 mg NGT DAILY 11/24/19 Ipratropium/Albuterol Sulfate [Iprat-Albut 0.5-3(2.5) mg/3 ml] 3 ml IH QID 11/24 L. Acidophilus/Pectin, [place] [Acidophilus Capsule] 1 each PO TID 11/24/19 Magnesium Oxide 400 mg PO BID 11/24/19 Midodrine HCl 10 mg PO DAILY 11/24/19 Omeprazole 40 mg PO DAILY 11/24/19 Acetaminophen Oral Solution [Tylenol Oral Solution -] 650 mg PEG Q6H PRN soln.oral 12/02/19 Famotidine [Pepcid] 20 mg NGT BID oral.susp 12/02/19 levETIRAcetam [Keppra Oral Solution -] 500 mg GT BID cup 12/02/19
[2019-12-02] MEDS: MULTIVIT-MINERALS ORAL LIQUID GT SCH (10:09)
[2019-12-02] MEDS: levETIRAcetam 500 MG/5 ML ORAL SOLUTION (UNIT-DOSE CUPS) GT SCH ×2 (10:09→21:44)
[2019-12-02] MEDS: ASCORBIC ACID 500 MG TABLET (FP) GT SCH (10:09)
[2019-12-02] MEDS: FERROUS SO4 300 MG/5 ML ORAL SOLN UNIT DOSE CUPS GT SCH (10:09)
[2019-12-02] MEDS: FAMOTIDINE 40 MG/5 ML ORAL SUSPENSION NGT SCH ×2 (10:09→21:44)
[2019-12-02] MEDS: APIXABAN 5 MG TABLET PO SCH ×2 (10:09→21:44)
--- NOTE | 2019-12-02 11:48 | PN ---
Progress Note, Physician History of Present Illness: EYES OPEN ON VENTILATOR BUT DOES NOT FOLLOW AFEBRILE NO ACUTE RESP DISTRESS WBC WNL REPEAT BC (-) - Current Medication List Current Medications: Active Medications Acetaminophen (Tylenol Oral Solution -) 650 mg PEG Q6H PRN PRN Reason: PAIN LEVEL 4 - 6 Last Admin: 11/28/19 02:54 Dose: 650 mg Apixaban (Eliquis -) 5 mg PO BID [facility] Last Admin: 12/02/19 10:09 Dose: 5 mg Ascorbic Acid (Vitamin C -) 500 mg GT DAILY [facility] Last Admin: 12/02/19 10:09 Dose: 500 mg Atorvastatin Calcium (Lipitor -) 80 mg GT HS [facility] Last Admin: 12/01/19 22:43 Dose: 80 mg Famotidine (Pepcid) 20 mg NGT BID [facility] Last Admin: 12/02/19 10:09 Dose: 20 mg Ferrous Sulfate (Feosol) 300 mg GT DAILY [facility] Last Admin: 12/02/19 10:09 Dose: 300 mg Lactobacillus Acidophilus (Bacid -) 1 tab GT TID [facility] Last Admin: 12/02/19 05:14 Dose: 1 tab Levetiracetam (Keppra Oral Solution -) 500 mg GT BID [facility] Last Admin: 12/02/19 10:09 Dose: 500 mg Multivitamins/Minerals (Certavite-Antioxidant Liquid) 15 ml GT DAILY [facility] Last Admin: 12/02/19 10:09 Dose: 15 ml Non-Formulary Medication (Midodrine Hcl [Midodrine Hcl]) 10 mg PO DAILY [facility] - Objective Vital Signs: Vital Signs Temperature 97.7 F 12/02/19 10:00 Pulse Rate 68 12/02/19 10:00 Respiratory Rate 12 12/02/19 10:00 Blood Pressure 114/66 12/02/19 10:00 O2 Sat by Pulse Oximetry (%) 100 12/02/19 08:22 Constitutional: Yes: No Distress, Obese Cardiovascular: Yes: Regular Rate and Rhythm, S1, S2 Respiratory: Yes: Mechanically Ventilated Gastrointestinal: Yes: Normal Bowel Sounds, Soft. No: Tenderness Edema: Yes Labs: CBC, BMP 12/02/19 06:05 12/02/19 06:05 INR, PTT INR 1.12 (0.83-1.09) H 11/29/19 05:40 Assessment/Plan BIBASILAR PNEUMONIA R/O SEPSIS SECONDARY TO LUNG SOURCE + BC MIXED ORGANISMS C/W CONTAMINATION CHRONIC RESP FAILURE ANEMIA CVA SUBSTITUTE LEVA[facility]IN VIA GT X 7D
[2019-12-02] MEDS ORDERED: PT OWN MED DRAWER 7, Y5N ONE ×2 (12:47→21:43)
--- NOTE | 2019-12-02 14:03 | PN ---
Progress Note (short form) - Note Progress Note: Remains poorly responsive on AC Mode of vent. No acute events overnight. Intake & Output 11/29/19 11/30/19 12/01/19 12/02/19 23:59 23:59 23:59 23:59 Intake Total 210 490 428 682 Output Total 540 200 Balance 210 -50 228 682 Last Vital Signs Temp Pulse Resp BP Pulse Ox 97.6 F 70 12 106/51 L 100 12/02/19 13:16 12/02/19 13:16 12/02/19 13:16 12/02/19 13:16 12/02/19 12:00 Active Medications Acetaminophen (Tylenol Oral Solution -) 650 mg PEG Q6H PRN PRN Reason: PAIN LEVEL 4 - 6 Last Admin: 11/28/19 02:54 Dose: 650 mg Apixaban (Eliquis -) 5 mg PO BID [facility] Last Admin: 12/02/19 10:09 Dose: 5 mg Ascorbic Acid (Vitamin C -) 500 mg GT DAILY [facility] Last Admin: 12/02/19 10:09 Dose: 500 mg Atorvastatin Calcium (Lipitor -) 80 mg GT HS [facility] Last Admin: 12/01/19 22:43 Dose: 80 mg Famotidine (Pepcid) 20 mg NGT BID [facility] Last Admin: 12/02/19 10:09 Dose: 20 mg Ferrous Sulfate (Feosol) 300 mg GT DAILY [facility] Last Admin: 12/02/19 10:09 Dose: 300 mg Lactobacillus Acidophilus (Bacid -) 1 tab GT TID [facility] Last Admin: 12/02/19 13:10 Dose: 1 tab Levetiracetam (Keppra Oral Solution -) 500 mg GT BID [facility] Last Admin: 12/02/19 10:09 Dose: 500 mg Levofloxacin (Levaquin -) 500 mg GT 0600 [facility] Last Admin: 12/02/19 13:10 Dose: 500 mg Multivitamins/Minerals (Certavite-Antioxidant Liquid) 15 ml GT DAILY [facility] Last Admin: 12/02/19 10:09 Dose: 15 ml Non-Formulary Medication (Midodrine Hcl [Midodrine Hcl]) 10 mg PO DAILY [facility] Constitutional: Yes: Poorly responsive, No Distress, Vented Eyes: Yes: Conjunctiva Clear HENT: Yes: Atraumatic, Normocephalic Neck: Yes: Trachea Midline, Other (Tracheostomy intact ) Cardiovascular: Yes: Regular Rate and Rhythm Respiratory: Yes: Mechanically Ventilated, Rhonchi. No: Accessory Muscle Use, Rales, SOB, SOB on Exertion, Stridor, Tachypnea, Wheezes ...Inspection: Yes: WNL ...Clubbing: No Gastrointestinal: Yes: Normal Bowel Sounds, Soft Musculoskeletal: Yes: WNL Extremities: Yes: WNL Edema: No Peripheral Pulses WNL: Yes Integumentary: Yes: WNL Neurological: Yes: poorly responsive Labs: Laboratory Results - last 24 hr 12/02/19 12/02/19 12/02/19 06:05 06:05 06:05 WBC 6.1 RBC 3.29 L Hgb 9.8 L Hct 29.0 L MCV 88.0 MCH 29.7 MCHC 33.7 RDW 19.4 H Plt Count 332 MPV 7.2 L PTT (Actin FS) 32.3 Sodium 138 Potassium 3.2 L Chloride 107 Carbon Dioxide 24 Anion Gap 7 L BUN 12.2 Creatinine 0.6 Est GFR (CKD-EPI)AfAm 96.33 Est GFR (CKD-EPI)NonAf 83.11 Random Glucose 109 H Calcium 8.3 L Assessment/Plan IMP: Chronic Respiratory Failure R/O PNA Anemia R/O GI Bleed S/P CVA PLAN: AC mode of vent ABX per ID Follow final cultures Mechanical VTE prophylaxis Normal transfusion thresholds Poor candidate for weaning DC planning Dr Butler
--- NOTE | 2019-12-02 17:00 | PATH ---
Surgical Pathology Report Patient Name: JOSE CASAS [facility]. Rec. #: [id number] /Age/Gender: 1935 (Age: 83) / F Account: [id number] Location: EMERGENCY ROOM Taken: 11/30/2019 Received: 12/01/2019 Reported: 12/02/2019 Physicians: Hawa Lomeli MD Specimen(s) Received ANTRUM NODULARITY Clinical History Anemia Postoperative diagnosis: Gastritis, antral nodule Final Diagnosis Stomach, antral nodularity, biopsy: Gastric ANTRAL mucosa with moderate chronic gastritis and intestinal metaplasia. No dysplasia identified. Immunohistochemical STAIN FOR H. Pylori is negative. Positive and negative controls (internal if applicable) show appropriate results. Electronically Signed Jeanne Girard M.D. Gross Description Received in formalin, labeled "biopsy antral nodularity" are 2 barrera, irregular portions of soft tissue averaging 0.3 cm. in greatest dimension. The specimens are submitted in toto in one cassette. [facility]
[2019-12-02] MEDS: ATORVASTATIN CA 80 MG TABLET (FP) GT SCH (21:44)
[2019-12-03] MEDS ORDERED: PT OWN MED DRAWER 7, Y5N ONE ×2 (05:39→21:45)
[2019-12-03] MEDS: LACTOBACILLUS ACIDOPHILUS 1 TABLET GT SCH ×3 (05:42→21:33)
[2019-12-03 06:24] LABS: HEMATOCRIT 27.9 % (32.4-45.2); HEMOGLOBIN 9.3 GM/dL (10.7-15.3); MCH 29.6 pg (25.7-33.7); MCHC 33.5 g/dl (32.0-36.0); MEAN CELL VOLUME 88.5 fl (80-96); MEAN PLT VOLUME 7.4 fl (7.5-11.1); PLATELET COUNT 291 K/MM3 (134-434); RBC 3.15 M/mm3 (3.60-5.2); WHITE BLOOD COUNT 5.9 K/mm3 (4.0-10.0)
--- NOTE | 2019-12-03 09:21 | PN ---
Progress Note (short form) - Note Progress Note: PULMONARY Vented, poorly responsive. No fevers recorded. Vital Signs Period Temp Pulse Resp BP Sys/Cole Pulse Ox Last 24 Hr 97.6 F-98.9 F 68-86 12-16 106-118/51-66 100-100 Gen: vented, poorly responsive Heart: RRR Lung: decreased breath sounds at the bases Abd: soft, nontender Ext: no edema CBC, BMP 12/03/19 05:31 12/02/19 06:05 Active Medications Acetaminophen (Tylenol Oral Solution -) 650 mg PEG Q6H PRN PRN Reason: PAIN LEVEL 4 - 6 Last Admin: 11/28/19 02:54 Dose: 650 mg Apixaban (Eliquis -) 5 mg PO BID [facility] Last Admin: 12/02/19 21:44 Dose: 5 mg Ascorbic Acid (Vitamin C -) 500 mg GT DAILY [facility] Last Admin: 12/02/19 10:09 Dose: 500 mg Atorvastatin Calcium (Lipitor -) 80 mg GT HS [facility] Last Admin: 12/02/19 21:44 Dose: 80 mg Famotidine (Pepcid) 20 mg NGT BID [facility] Last Admin: 12/02/19 21:44 Dose: 20 mg Ferrous Sulfate (Feosol) 300 mg GT DAILY [facility] Last Admin: 12/02/19 10:09 Dose: 300 mg Lactobacillus Acidophilus (Bacid -) 1 tab GT TID [facility] Last Admin: 12/03/19 05:42 Dose: 1 tab Levetiracetam (Keppra Oral Solution -) 500 mg GT BID [facility] Last Admin: 12/02/19 21:44 Dose: 500 mg Levofloxacin (Levaquin -) 500 mg GT 0600 [facility] Last Admin: 12/03/19 05:42 Dose: 500 mg Multivitamins/Minerals (Certavite-Antioxidant Liquid) 15 ml GT DAILY [facility] Last Admin: 12/02/19 10:09 Dose: 15 ml Non-Formulary Medication (Midodrine Hcl [Midodrine Hcl]) 10 mg PO DAILY [facility] A/P Chronic Respiratory Failure Pneumonia Atrial Fibrillation Anemia r/o GI Bleed h/o CVA Seizure Disorder - continue antibiotics - rate controlled - resume anticoagulation - monitor H/H - continue assist control - poor candidate for weaning at this time due to mental status - DVT prophylaxis
--- NOTE | 2019-12-03 09:28 | PN ---
Progress Note, Physician Chief Complaint: AWAKE, NON-VERBAL EVENTS AND NOTES REIEWED 1 EPISODE RUN OF SVT 185/MIN WHILE I WAS IN THE ROOM AFTER 10 SECONDS RETURNED BACK TO 80 BEATS/MIN - Current Medication List Current Medications: Active Medications Acetaminophen (Tylenol Oral Solution -) 650 mg PEG Q6H PRN PRN Reason: PAIN LEVEL 4 - 6 Last Admin: 11/28/19 02:54 Dose: 650 mg Apixaban (Eliquis -) 5 mg PO BID [facility] Last Admin: 12/02/19 21:44 Dose: 5 mg Ascorbic Acid (Vitamin C -) 500 mg GT DAILY [facility] Last Admin: 12/02/19 10:09 Dose: 500 mg Atorvastatin Calcium (Lipitor -) 80 mg GT HS [facility] Last Admin: 12/02/19 21:44 Dose: 80 mg Famotidine (Pepcid) 20 mg NGT BID [facility] Last Admin: 12/02/19 21:44 Dose: 20 mg Ferrous Sulfate (Feosol) 300 mg GT DAILY [facility] Last Admin: 12/02/19 10:09 Dose: 300 mg Lactobacillus Acidophilus (Bacid -) 1 tab GT TID [facility] Last Admin: 12/03/19 05:42 Dose: 1 tab Levetiracetam (Keppra Oral Solution -) 500 mg GT BID [facility] Last Admin: 12/02/19 21:44 Dose: 500 mg Levofloxacin (Levaquin -) 500 mg GT 0600 [facility] Last Admin: 12/03/19 05:42 Dose: 500 mg Multivitamins/Minerals (Certavite-Antioxidant Liquid) 15 ml GT DAILY [facility] Last Admin: 12/02/19 10:09 Dose: 15 ml Non-Formulary Medication (Midodrine Hcl [Midodrine Hcl]) 10 mg PO DAILY [facility] Potassium Chloride (Potassium Chloride Oral Liquid) 40 meq PO ONCE ONE Stop: 12/03/19 09:25 - Objective Vital Signs: Vital Signs Temperature 98.9 F 12/03/19 06:00 Pulse Rate 79 12/03/19 08:16 Respiratory Rate 12 12/03/19 08:16 Blood Pressure 113/66 12/03/19 06:00 O2 Sat by Pulse Oximetry (%) 100 12/03/19 08:16 Constitutional: Yes: Other Cardiovascular: Yes: Tachycardia, Pulse Irregular Respiratory: Yes: Diminished, Mechanically Ventilated Gastrointestinal: Yes: Soft, Other (GTUBE) Genitourinary: Yes: Incontinence Musculoskeletal: Yes: Muscle Weakness Edema: No Integumentary: Yes: Pressure Ulcer, Venous Stasis Changes Wound/Incision: Yes: Dressing Dry and Intact Neurological: Yes: Aphasia, Pre-Existing Deficit, Unresponsive Labs: CBC, BMP 12/03/19 05:31 12/02/19 06:05 INR, PTT INR 1.12 (0.83-1.09) H 11/29/19 05:40 Problem List - Problems (1) Afib Code(s): I48.91 - UNSPECIFIED ATRIAL FIBRILLATION (2) Anemia Code(s): D64.9 - ANEMIA, UNSPECIFIED (3) COPD (chronic obstructive pulmonary disease) Code(s): J44.9 - CHRONIC OBSTRUCTIVE PULMONARY DISEASE, UNSPECIFIED (4) CVA (cerebral vascular accident) Code(s): I63.9 - CEREBRAL INFARCTION, UNSPECIFIED (5) Fever Code(s): R50.9 - FEVER, UNSPECIFIED (6) Pneumonia Code(s): J18.9 - PNEUMONIA, UNSPECIFIED ORGANISM Qualifiers: Pneumonia type: due to unspecified organism Laterality: unspecified laterality Lung location: unspecified part of lung Qualified Code(s): J18.9 - Pneumonia, unspecified organism (7) Volume overload Code(s): E87.70 - FLUID OVERLOAD, UNSPECIFIED Qualifiers: Hypervolemia type: other Qualified Code(s): E87.79 - Other fluid overload Assessment/Plan CHANGE ALL MEDS TO GT NO CONTRAINDICATION TO START ELIQUIS FOR AC STOP ANTIBIOTICS FOR NOW REPEAT BLOOD CULTURE CXR TODAY REPEAT CBC IN AM GI F/U APPRECIATED CHECK STOOL OCCULT TODAY RESTART TUBE FEEDS DISCUSSED WITH NURSING STAFF MONITOR IN ICU/TELE FOR NOW DISCHARGE ON HOLD CARDIOLOGY F/U REPLETE KCL 40 MEQ GT
[2019-12-03] MEDS: APIXABAN 5 MG TABLET PO SCH ×2 (09:37→21:33)
[2019-12-03] MEDS: FERROUS SO4 300 MG/5 ML ORAL SOLN UNIT DOSE CUPS GT SCH (09:37)
[2019-12-03] MEDS: levETIRAcetam 500 MG/5 ML ORAL SOLUTION (UNIT-DOSE CUPS) GT SCH ×2 (09:37→21:33)
[2019-12-03] MEDS: ASCORBIC ACID 500 MG TABLET (FP) GT SCH (09:37)
[2019-12-03] MEDS: MULTIVIT-MINERALS ORAL LIQUID GT SCH (09:37)
[2019-12-03] MEDS: FAMOTIDINE 40 MG/5 ML ORAL SUSPENSION NGT SCH ×2 (09:38→21:34)
[2019-12-03] MEDS ORDERED: POTASSIUM CHLORIDE ORAL LIQUID 20 MEQ/15 ML PO ONE (09:45)
[2019-12-03] MEDS: ATORVASTATIN CA 80 MG TABLET (FP) GT SCH (21:34)
[2019-12-04] MEDS ORDERED: PT OWN MED DRAWER 7, Y5N ONE ×2 (05:10→20:52)
[2019-12-04] MEDS: LACTOBACILLUS ACIDOPHILUS 1 TABLET GT SCH ×3 (05:29→21:26)
[2019-12-04 06:35] LABS: HEMATOCRIT 28.6 % (32.4-45.2); HEMOGLOBIN 9.5 GM/dL (10.7-15.3); MCH 29.2 pg (25.7-33.7); MCHC 33.2 g/dl (32.0-36.0); MEAN CELL VOLUME 87.9 fl (80-96); MEAN PLT VOLUME 7.4 fl (7.5-11.1); PLATELET COUNT 274 K/MM3 (134-434); RBC 3.25 M/mm3 (3.60-5.2); RDW 19.5 % (11.6-15.6); WHITE BLOOD COUNT 6.8 K/mm3 (4.0-10.0)
[2019-12-04 06:40] LABS: BLOOD UREA NITROGEN 18.4 mg/dL (7-18); CALCIUM 8.7 mg/dL (8.5-10.1); CREATININE 0.6 mg/dL (0.55-1.3); POTASSIUM 4.1 mmol/L (3.5-5.1)
[2019-12-04] MEDS: APIXABAN 5 MG TABLET PO SCH ×2 (10:09→21:26)
[2019-12-04] MEDS: FAMOTIDINE 40 MG/5 ML ORAL SUSPENSION NGT SCH ×2 (10:09→21:27)
[2019-12-04] MEDS: ASCORBIC ACID 500 MG TABLET (FP) GT SCH (10:09)
[2019-12-04] MEDS: levETIRAcetam 500 MG/5 ML ORAL SOLUTION (UNIT-DOSE CUPS) GT SCH ×2 (10:10→21:27)
[2019-12-04] MEDS: FERROUS SO4 300 MG/5 ML ORAL SOLN UNIT DOSE CUPS GT SCH (10:10)
--- NOTE | 2019-12-04 10:36 | PN ---
Progress Note (short form) - Note Progress Note: PULMONARY Vented, poorly responsive. No fevers recorded. Vital Signs Period Temp Pulse Resp BP Sys/Cole Pulse Ox Last 24 Hr 98.2 F-98.9 F 77-96 12-14 117-134/60-79 100-100 Gen: vented, poorly responsive Heart: RRR Lung: decreased breath sounds at the bases Abd: soft, nontender Ext: no edema CBC, BMP 12/04/19 05:40 12/04/19 05:40 Active Medications Acetaminophen (Tylenol Oral Solution -) 650 mg PEG Q6H PRN PRN Reason: PAIN LEVEL 4 - 6 Last Admin: 11/28/19 02:54 Dose: 650 mg Apixaban (Eliquis -) 5 mg PO BID [facility] Last Admin: 12/04/19 10:09 Dose: 5 mg Ascorbic Acid (Vitamin C -) 500 mg GT DAILY [facility] Last Admin: 12/04/19 10:09 Dose: 500 mg Atorvastatin Calcium (Lipitor -) 80 mg GT HS [facility] Last Admin: 12/03/19 21:34 Dose: 80 mg Famotidine (Pepcid) 20 mg NGT BID [facility] Last Admin: 12/04/19 10:09 Dose: 20 mg Ferrous Sulfate (Feosol) 300 mg GT DAILY [facility] Last Admin: 12/04/19 10:10 Dose: 300 mg Lactobacillus Acidophilus (Bacid -) 1 tab GT TID [facility] Last Admin: 12/04/19 05:29 Dose: 1 tab Levetiracetam (Keppra Oral Solution -) 500 mg GT BID [facility] Last Admin: 12/04/19 10:10 Dose: 500 mg Levofloxacin (Levaquin -) 500 mg GT 0600 [facility] Last Admin: 12/04/19 05:29 Dose: 500 mg Multivitamins/Minerals (Certavite-Antioxidant Liquid) 15 ml GT DAILY [facility] Last Admin: 12/03/19 09:37 Dose: 15 ml Non-Formulary Medication (Midodrine Hcl [Midodrine Hcl]) 10 mg PO DAILY [facility] A/P Chronic Respiratory Failure Pneumonia Atrial Fibrillation Anemia r/o GI Bleed h/o CVA Seizure Disorder - continue antibiotics - rate controlled - continue anticoagulation - monitor H/H - continue assist control - poor candidate for weaning at this time due to mental status - DVT prophylaxis
[2019-12-04] MEDS: MULTIVIT-MINERALS ORAL LIQUID GT SCH (11:18)
--- NOTE | 2019-12-04 11:24 | PN ---
Progress Note, Physician Chief Complaint: awaiting authorization for dc back to snf no acute changes iron iv and gtube supplements given - Current Medication List Current Medications: Active Medications Acetaminophen (Tylenol Oral Solution -) 650 mg PEG Q6H PRN PRN Reason: PAIN LEVEL 4 - 6 Last Admin: 11/28/19 02:54 Dose: 650 mg Apixaban (Eliquis -) 5 mg PO BID [facility] Last Admin: 12/04/19 10:09 Dose: 5 mg Ascorbic Acid (Vitamin C -) 500 mg GT DAILY [facility] Last Admin: 12/04/19 10:09 Dose: 500 mg Atorvastatin Calcium (Lipitor -) 80 mg GT HS [facility] Last Admin: 12/03/19 21:34 Dose: 80 mg Famotidine (Pepcid) 20 mg NGT BID [facility] Last Admin: 12/04/19 10:09 Dose: 20 mg Ferrous Sulfate (Feosol) 300 mg GT DAILY [facility] Last Admin: 12/04/19 10:10 Dose: 300 mg Iron Sucrose 300 mg/ Sodium (Chloride) 250 mls @ 250 mls/hr IVPB ONCE ONE Stop: 12/04/19 12:21 Lactobacillus Acidophilus (Bacid -) 1 tab GT TID [facility] Last Admin: 12/04/19 05:29 Dose: 1 tab Levetiracetam (Keppra Oral Solution -) 500 mg GT BID [facility] Last Admin: 12/04/19 10:10 Dose: 500 mg Levofloxacin (Levaquin -) 500 mg GT 0600 [facility] Last Admin: 12/04/19 05:29 Dose: 500 mg Multivitamins/Minerals (Certavite-Antioxidant Liquid) 15 ml GT DAILY [facility] Last Admin: 12/04/19 11:18 Dose: 15 ml Non-Formulary Medication (Midodrine Hcl [Midodrine Hcl]) 10 mg PO DAILY [facility] - Objective Vital Signs: Vital Signs Temperature 97.1 F L 12/04/19 10:00 Pulse Rate 85 12/04/19 10:00 Respiratory Rate 12 12/04/19 10:00 Blood Pressure 101/71 12/04/19 10:00 O2 Sat by Pulse Oximetry (%) 100 12/04/19 09:00 Labs: CBC, BMP 12/04/19 05:40 12/04/19 05:40 INR, PTT INR 1.12 (0.83-1.09) H 11/29/19 05:40 Problem List - Problems (1) Afib Code(s): I48.91 - UNSPECIFIED ATRIAL FIBRILLATION (2) Anemia Code(s): D64.9 - ANEMIA, UNSPECIFIED (3) COPD (chronic obstructive pulmonary disease) Code(s): J44.9 - CHRONIC OBSTRUCTIVE PULMONARY DISEASE, UNSPECIFIED (4) CVA (cerebral vascular accident) Code(s): I63.9 - CEREBRAL INFARCTION, UNSPECIFIED (5) Fever Code(s): R50.9 - FEVER, UNSPECIFIED (6) Pneumonia Code(s): J18.9 - PNEUMONIA, UNSPECIFIED ORGANISM Qualifiers: Pneumonia type: due to unspecified organism Laterality: unspecified laterality Lung location: unspecified part of lung Qualified Code(s): J18.9 - Pneumonia, unspecified organism (7) Volume overload Code(s): E87.70 - FLUID OVERLOAD, UNSPECIFIED Qualifiers: Hypervolemia type: other Qualified Code(s): E87.79 - Other fluid overload Assessment/Plan IV IRON SUCROSE NOW DC PLANNING AWAITING AUTH FOR INSURANCE PLACEMENT TO SNF GTUBE FEEDS TOLERATED MONITOR H/H NO OBJECTION TO DISCHARGE FROM MEDICINE PERSPECTIVE
[2019-12-04] MEDS ORDERED: IRON SUCROSE INJECTION 300 MG in SODIUM CHLORIDE 235 ML IVPB ONE (12:45)
[2019-12-04] MEDS: ATORVASTATIN CA 80 MG TABLET (FP) GT SCH (21:27)
[2019-12-05] MEDS: LACTOBACILLUS ACIDOPHILUS 1 TABLET GT SCH ×3 (06:30→21:00)
[2019-12-05 07:12] LABS: HEMATOCRIT 27.9 % (32.4-45.2); HEMOGLOBIN 9.3 GM/dL (10.7-15.3); MCH 29.7 pg (25.7-33.7); MCHC 33.1 g/dl (32.0-36.0); MEAN CELL VOLUME 89.8 fl (80-96); MEAN PLT VOLUME 7.7 fl (7.5-11.1); PLATELET COUNT 250 K/MM3 (134-434); RBC 3.11 M/mm3 (3.60-5.2); RDW 19.2 % (11.6-15.6)
--- NOTE | 2019-12-05 09:05 | DS ---
Physical Examination Vital Signs: Vital Signs Temperature 97.8 F 12/05/19 06:00 Pulse Rate 67 12/05/19 07:59 Respiratory Rate 12 12/05/19 07:59 Blood Pressure 96/48 L 12/05/19 06:00 O2 Sat by Pulse Oximetry (%) 100 12/05/19 07:59 Cardiovascular: Yes: S1, S2 Respiratory: Yes: Regular, CTA Bilaterally Gastrointestinal: Yes: Normal Bowel Sounds, Soft Labs: CBC, BMP 12/05/19 05:45 12/04/19 05:40 Discharge Summary Problems reviewed: Yes Reason For Visit: PNEUMONIA Current Active Problems Afib (Acute) Anemia (Acute) CHF (congestive heart failure) (Acute) COPD (chronic obstructive pulmonary disease) (Acute) CVA (cerebral vascular accident) (Acute) Fever (Acute) Pneumonia (Acute) Volume overload (Acute) Hospital Course: Chronic Respiratory Failure Pneumonia Atrial Fibrillation Anemia r/o GI Bleed---- h/o CVA EGD performed today revealing antral erythema and nodularity otherwise no obvious source of bleeding. Biopsies taken. See scanned report for details. No obvious contraindication to anticoagulation based on findings on this exam. Seizure Disorder - Problems (1) Anemia Assessment/Plan: S/P PRBC-Repeat pending STOOL FOR OCCULT BLOOD Negative GI AND HEM HOLD ELIQUIS Code(s): D64.9 - ANEMIA, UNSPECIFIED (2) Fever Assessment/Plan: OFF IV ABX PER ID ID CONSULT appreciated Code(s): R50.9 - FEVER, UNSPECIFIED (3) CVA (cerebral vascular accident) Assessment/Plan: old Code(s): I63.9 - CEREBRAL INFARCTION, UNSPECIFIED (4) Afib Assessment/Plan: HOLD AC DUE TO SEVERE ANEMIA CARDIO Code(s): I48.91 - UNSPECIFIED ATRIAL FIBRILLATION (5) COPD (chronic obstructive pulmonary disease) Assessment/Plan: PULM ON BOARD Code(s): J44.9 - CHRONIC OBSTRUCTIVE PULMONARY DISEASE, UNSPECIFIED (6) CHF (congestive heart failure) Assessment/Plan: MONITOR --HOLD LASIX DUE TO HYPOTENSION CXR Code(s): I50.9 - HEART FAILURE, UNSPECIFIED dc planning snf Condition: Stable - Instructions Diet, Activity, Other Instructions: cbc cmp thursday cbc q week Referrals: Aris Wheatley MD [Primary Care Provider] - Disposition: HALF-WAY FACILITY - Home Medications Comprehensive Discharge Medication List: Ambulatory Orders Acetaminophen 650 mg PO QID 11/24/19 Apixaban [Eliquis] 5 mg PO BID 11/24/19 Ascorbic Acid 500 mg PO DAILY 11/24/19 Atorvastatin Ca [Lipitor] 80 mg PO HS 11/24/19 Ferrous Sulfate [Feosol] 300 mg NGT DAILY 11/24/19 Ipratropium/Albuterol Sulfate [Iprat-Albut 0.5-3(2.5) mg/3 ml] 3 ml IH QID 11/24 L. Acidophilus/Pectin, [place] [Acidophilus Capsule] 1 each PO TID 11/24/19 Magnesium Oxide 400 mg PO BID 11/24/19 Midodrine HCl 10 mg PO DAILY 11/24/19 Omeprazole 40 mg PO DAILY 11/24/19 Acetaminophen Oral Solution [Tylenol Oral Solution -] 650 mg PEG Q6H PRN soln.oral 12/02/19 Famotidine [Pepcid] 20 mg NGT BID oral.susp 12/02/19 levETIRAcetam [Keppra Oral Solution -] 500 mg GT BID cup 12/02/19 levoFLOXacin [Levaquin -] 500 mg GT 0600 tablet 12/02/19
[2019-12-05] MEDS ORDERED: PT OWN MED DRAWER 7, Y5N ONE (10:16)
[2019-12-05] MEDS: MULTIVIT-MINERALS ORAL LIQUID GT SCH (10:17)
[2019-12-05] MEDS: levETIRAcetam 500 MG/5 ML ORAL SOLUTION (UNIT-DOSE CUPS) GT SCH ×2 (10:18→21:00)
[2019-12-05] MEDS: APIXABAN 5 MG TABLET PO SCH ×2 (10:18→21:00)
[2019-12-05] MEDS: FERROUS SO4 300 MG/5 ML ORAL SOLN UNIT DOSE CUPS GT SCH (10:18)
[2019-12-05] MEDS: FAMOTIDINE 40 MG/5 ML ORAL SUSPENSION NGT SCH ×2 (10:20→21:00)
[2019-12-05] MEDS: ASCORBIC ACID 500 MG TABLET (FP) GT SCH (10:21)
--- NOTE | 2019-12-05 13:15 | PN ---
Progress Note (short form) - Note Progress Note: Remains poorly responsive on AC Mode of vent. No acute events overnight. Intake & Output 12/02/19 12/03/19 12/04/19 12/05/19 23:59 23:59 23:59 23:59 Intake Total 1582 1210 695 910 Balance 1582 1210 695 910 Last Vital Signs Temp Pulse Resp BP Pulse Ox 98.2 F 66 17 103/50 L 100 12/05/19 10:00 12/05/19 10:00 12/05/19 12:03 12/05/19 10:00 12/05/19 12:03 Active Medications Acetaminophen (Tylenol Oral Solution -) 650 mg PEG Q6H PRN PRN Reason: PAIN LEVEL 4 - 6 Last Admin: 11/28/19 02:54 Dose: 650 mg Apixaban (Eliquis -) 5 mg PO BID [facility] Last Admin: 12/05/19 10:18 Dose: 5 mg Ascorbic Acid (Vitamin C -) 500 mg GT DAILY [facility] Last Admin: 12/05/19 10:21 Dose: 500 mg Atorvastatin Calcium (Lipitor -) 80 mg GT HS [facility] Last Admin: 12/04/19 21:27 Dose: 80 mg Famotidine (Pepcid) 20 mg NGT BID [facility] Last Admin: 12/05/19 10:20 Dose: 20 mg Ferrous Sulfate (Feosol) 300 mg GT DAILY [facility] Last Admin: 12/05/19 10:18 Dose: 300 mg Lactobacillus Acidophilus (Bacid -) 1 tab GT TID [facility] Last Admin: 12/05/19 06:30 Dose: 1 tab Levetiracetam (Keppra Oral Solution -) 500 mg GT BID [facility] Last Admin: 12/05/19 10:18 Dose: 500 mg Levofloxacin (Levaquin -) 500 mg GT 0600 [facility] Last Admin: 12/05/19 06:30 Dose: 500 mg Midodrine (Proamatine -) 10 mg PO TID-MID [facility] Multivitamins/Minerals (Certavite-Antioxidant Liquid) 15 ml GT DAILY [facility] Last Admin: 12/05/19 10:17 Dose: 15 ml Constitutional: Yes: Poorly responsive, No Distress, Vented Eyes: Yes: Conjunctiva Clear HENT: Yes: Atraumatic, Normocephalic Neck: Yes: Trachea Midline, Other (Tracheostomy intact ) Cardiovascular: Yes: Regular Rate and Rhythm Respiratory: Yes: Mechanically Ventilated, Rhonchi. No: Accessory Muscle Use, Rales, SOB, SOB on Exertion, Stridor, Tachypnea, Wheezes ...Inspection: Yes: WNL ...Clubbing: No Gastrointestinal: Yes: Normal Bowel Sounds, Soft Musculoskeletal: Yes: WNL Extremities: Yes: WNL Edema: No Peripheral Pulses WNL: Yes Integumentary: Yes: WNL Neurological: Yes: poorly responsive Labs: Laboratory Results - last 24 hr 12/05/19 12/05/19 05:45 05:45 WBC 8.0 RBC 3.11 L Hgb 9.3 L Hct 27.9 L MCV 89.8 MCH 29.7 MCHC 33.1 RDW 19.2 H Plt Count 250 MPV 7.7 PTT (Actin FS) 35.1 Assessment/Plan IMP: Chronic Respiratory Failure R/O PNA Anemia R/O GI Bleed S/P CVA PLAN: AC mode of vent Mechanical VTE prophylaxis Poor candidate for weaning DC planning Dr Butler
[2019-12-05] MEDS: MIDODRINE HCL 5 MG TABLET PO SCH ×2 (13:46→17:26)
--- NOTE | 2019-12-05 19:57 | PN ---
Progress Note (short form) - Note Progress Note: Patient seen and examined Nonverbal Last Vital Signs Temp Pulse Resp BP Pulse Ox 98.6 F 78 14 132/55 L 100 12/05/19 18:00 12/05/19 18:00 12/05/19 18:00 12/05/19 18:00 12/05/19 12:03 + trach Cor: RSR, No murmurs, No gallops Lungs: Clear to P&A Abd: Soft, Normal bowel sounds, No organomegaly Ext:No significant edema LAbs/Meds reviewed A/P Bilateral pneumonia Anemia- 2nd lab after initial admisssion lab of 6.9 is inconsistent with remaining labs chronic Respiratory failure Tube feedings Atrial fib HPL Anemia R/O GI Bleed h/o CVA Normal haptoglobin, LDH Antibody screen- negative --all against hemolysis Retic count of 9.3% inconsistent -- but this value was obtained the day when Hb- -6.9 which is also not consistent with prior laboratory assessment Stool guaic negative Fe++ , TIBC, saturation of Fe++ all low with ferritin normal suggests component of chronic disease Suspect spurious lab value on 2nd blood draw with associated retic also inconsistent. Suspect component of chronic disease and blood loss- Normal B-12, folate, TSH.
[2019-12-05] MEDS: ATORVASTATIN CA 80 MG TABLET (FP) GT SCH (21:00)
[2019-12-06] MEDS: LACTOBACILLUS ACIDOPHILUS 1 TABLET GT SCH ×3 (06:15→21:10)
--- NOTE | 2019-12-06 09:36 | DS ---
Physical Examination Vital Signs: Vital Signs Temperature 97.8 F 12/05/19 22:00 Pulse Rate 64 12/06/19 05:00 Respiratory Rate 12 12/06/19 05:00 Blood Pressure 136/71 12/06/19 05:00 O2 Sat by Pulse Oximetry (%) 100 12/05/19 21:00 Cardiovascular: Yes: S1, S2 Respiratory: Yes: Mechanically Ventilated Gastrointestinal: Yes: Normal Bowel Sounds, Soft Labs: CBC, BMP 12/05/19 05:45 12/04/19 05:40 Discharge Summary Problems reviewed: Yes Reason For Visit: PNEUMONIA Current Active Problems Afib (Acute) Anemia (Acute) CHF (congestive heart failure) (Acute) COPD (chronic obstructive pulmonary disease) (Acute) CVA (cerebral vascular accident) (Acute) Fever (Acute) Pneumonia (Acute) Volume overload (Acute) Hospital Course: Chronic Respiratory Failure Pneumonia Atrial Fibrillation Anemia r/o GI Bleed---- h/o CVA EGD performed today revealing antral erythema and nodularity otherwise no obvious source of bleeding. Biopsies taken. See scanned report for details. No obvious contraindication to anticoagulation based on findings on this exam. Seizure Disorder CHANGE ALL MEDS TO GT NO CONTRAINDICATION TO START ELIQUIS FOR AC STOP ANTIBIOTICS FOR NOW REPEAT BLOOD CULTURE CXR TODAY REPEAT CBC IN AM GI F/U APPRECIATED CHECK STOOL OCCULT TODAY RESTART TUBE FEEDS Condition: Stable - Instructions Diet, Activity, Other Instructions: cbc cmp thursday cbc q week Referrals: Aris Wheatley MD [Primary Care Provider] - Disposition: NURSING HOME FACILITY - Home Medications Comprehensive Discharge Medication List: Ambulatory Orders Acetaminophen 650 mg PO QID 11/24/19 Apixaban [Eliquis] 5 mg PO BID 11/24/19 Ascorbic Acid 500 mg PO DAILY 11/24/19 Atorvastatin Ca [Lipitor] 80 mg PO HS 11/24/19 Ferrous Sulfate [Feosol] 300 mg NGT DAILY 11/24/19 Ipratropium/Albuterol Sulfate [Iprat-Albut 0.5-3(2.5) mg/3 ml] 3 ml IH QID 11/24 L. Acidophilus/Pectin, [place] [Acidophilus Capsule] 1 each PO TID 11/24/19 Magnesium Oxide 400 mg PO BID 11/24/19 Midodrine HCl 10 mg PO DAILY 11/24/19 Omeprazole 40 mg PO DAILY 11/24/19 Acetaminophen Oral Solution [Tylenol Oral Solution -] 650 mg PEG Q6H PRN soln.oral 12/02/19 Famotidine [Pepcid] 20 mg NGT BID oral.susp 12/02/19 levETIRAcetam [Keppra Oral Solution -] 500 mg GT BID cup 12/02/19 levoFLOXacin [Levaquin -] 500 mg GT 0600 tablet 12/02/19
[2019-12-06] MEDS: MIDODRINE HCL 5 MG TABLET PO SCH ×3 (11:29→18:15)
[2019-12-06] MEDS: ASCORBIC ACID 500 MG TABLET (FP) GT SCH (11:30)
[2019-12-06] MEDS: APIXABAN 5 MG TABLET PO SCH ×2 (11:30→21:09)
[2019-12-06] MEDS: MULTIVIT-MINERALS ORAL LIQUID GT SCH (11:31)
[2019-12-06] MEDS: FAMOTIDINE 40 MG/5 ML ORAL SUSPENSION NGT SCH ×2 (11:31→21:09)
[2019-12-06] MEDS: levETIRAcetam 500 MG/5 ML ORAL SOLUTION (UNIT-DOSE CUPS) GT SCH ×2 (11:31→21:09)
[2019-12-06] MEDS: FERROUS SO4 300 MG/5 ML ORAL SOLN UNIT DOSE CUPS GT SCH (11:31)
--- NOTE | 2019-12-06 15:01 | PN ---
Progress Note (short form) - Note Progress Note: Remains poorly responsive on AC Mode of vent. No acute events overnight. Intake & Output 12/03/19 12/04/19 12/05/19 12/06/19 23:59 23:59 23:59 23:59 Intake Total 2600 813 1900 Balance 6890 518 3094 Last Vital Signs Temp Pulse Resp BP Pulse Ox 97.8 F 64 12 136/71 100 12/05/19 22:00 12/06/19 05:00 12/06/19 12:11 12/06/19 05:00 12/05/19 21:00 Active Medications Acetaminophen (Tylenol Oral Solution -) 650 mg PEG Q6H PRN PRN Reason: PAIN LEVEL 4 - 6 Last Admin: 11/28/19 02:54 Dose: 650 mg Apixaban (Eliquis -) 5 mg PO BID [facility] Last Admin: 12/06/19 11:30 Dose: 5 mg Ascorbic Acid (Vitamin C -) 500 mg GT DAILY [facility] Last Admin: 12/06/19 11:30 Dose: 500 mg Atorvastatin Calcium (Lipitor -) 80 mg GT HS [facility] Last Admin: 12/05/19 21:00 Dose: 80 mg Famotidine (Pepcid) 20 mg NGT BID [facility] Last Admin: 12/06/19 11:31 Dose: 20 mg Ferrous Sulfate (Feosol) 300 mg GT DAILY [facility] Last Admin: 12/06/19 11:31 Dose: 300 mg Lactobacillus Acidophilus (Bacid -) 1 tab GT TID [facility] Last Admin: 12/06/19 06:15 Dose: 1 tab Levetiracetam (Keppra Oral Solution -) 500 mg GT BID [facility] Last Admin: 12/06/19 11:31 Dose: 500 mg Levofloxacin (Levaquin -) 500 mg GT 0600 [facility] Last Admin: 12/06/19 06:15 Dose: 500 mg Midodrine (Proamatine -) 10 mg PO TID-MID [facility] Last Admin: 12/06/19 11:29 Dose: 10 mg Multivitamins/Minerals (Certavite-Antioxidant Liquid) 15 ml GT DAILY [facility] Last Admin: 12/06/19 11:31 Dose: 15 ml Constitutional: Yes: Poorly responsive, No Distress, Vented Eyes: Yes: Conjunctiva Clear HENT: Yes: Atraumatic, Normocephalic Neck: Yes: Trachea Midline, Other (Tracheostomy intact ) Cardiovascular: Yes: Regular Rate and Rhythm Respiratory: Yes: Mechanically Ventilated, Rhonchi. No: Accessory Muscle Use, Rales, SOB, SOB on Exertion, Stridor, Tachypnea, Wheezes ...Inspection: Yes: WNL ...Clubbing: No Gastrointestinal: Yes: Normal Bowel Sounds, Soft Musculoskeletal: Yes: WNL Extremities: Yes: WNL Edema: No Peripheral Pulses WNL: Yes Integumentary: Yes: WNL Neurological: Yes: poorly responsive Labs: Assessment/Plan IMP: Chronic Respiratory Failure R/O PNA Anemia R/O GI Bleed S/P CVA PLAN: AC mode of vent Levaquin Mechanical VTE prophylaxis Poor candidate for weaning DC planning Dr Butler
[2019-12-06] MEDS ORDERED: PT OWN MED DRAWER 7, Y5N ONE (21:07)
[2019-12-06] MEDS: ATORVASTATIN CA 80 MG TABLET (FP) GT SCH (21:09)
[2019-12-07] MEDS ORDERED: PT OWN MED DRAWER 7, Y5N ONE ×3 (05:09→12:03)
[2019-12-07] MEDS: LACTOBACILLUS ACIDOPHILUS 1 TABLET GT SCH ×3 (05:18→21:57)
[2019-12-07] MEDS: MIDODRINE HCL 5 MG TABLET PO SCH ×3 (10:17→17:08)
[2019-12-07] MEDS: APIXABAN 5 MG TABLET PO SCH ×2 (10:17→21:57)
--- NOTE | 2019-12-07 12:02 | PN ---
Progress Note, Physician Chief Complaint: Anemia Chronic respiratory failure History of Present Illness: Awaiting d/c to LTC - Current Medication List Current Medications: Active Medications Acetaminophen (Tylenol Oral Solution -) 650 mg PEG Q6H PRN PRN Reason: PAIN LEVEL 4 - 6 Last Admin: 11/28/19 02:54 Dose: 650 mg Apixaban (Eliquis -) 5 mg PO BID [facility] Last Admin: 12/07/19 10:17 Dose: 5 mg Ascorbic Acid (Vitamin C -) 500 mg GT DAILY [facility] Last Admin: 12/06/19 11:30 Dose: 500 mg Atorvastatin Calcium (Lipitor -) 80 mg GT HS [facility] Last Admin: 12/06/19 21:09 Dose: 80 mg Famotidine (Pepcid) 20 mg NGT BID [facility] Last Admin: 12/06/19 21:09 Dose: 20 mg Ferrous Sulfate (Feosol) 300 mg GT DAILY [facility] Last Admin: 12/06/19 11:31 Dose: 300 mg Lactobacillus Acidophilus (Bacid -) 1 tab GT TID [facility] Last Admin: 12/07/19 05:18 Dose: 1 tab Levetiracetam (Keppra Oral Solution -) 500 mg GT BID [facility] Last Admin: 12/06/19 21:09 Dose: 500 mg Levofloxacin (Levaquin -) 500 mg GT 0600 [facility] Last Admin: 12/07/19 05:18 Dose: 500 mg Midodrine (Proamatine -) 10 mg PO TID-MID [facility] Last Admin: 12/07/19 10:17 Dose: 10 mg Multivitamins/Minerals (Certavite-Antioxidant Liquid) 15 ml GT DAILY [facility] Last Admin: 12/06/19 11:31 Dose: 15 ml - Objective Vital Signs: Vital Signs Temperature 98.3 F 12/07/19 08:00 Pulse Rate 64 12/07/19 08:00 Respiratory Rate 13 12/07/19 08:00 Blood Pressure 116/57 L 12/07/19 08:00 O2 Sat by Pulse Oximetry (%) 100 12/07/19 08:49 Constitutional: Yes: Well Nourished, No Distress, Calm Cardiovascular: Yes: Regular Rate and Rhythm Respiratory: Yes: Mechanically Ventilated, Rhonchi (diffuse) Gastrointestinal: Yes: Normal Bowel Sounds, Soft Genitourinary: Yes: Incontinence Musculoskeletal: Yes: Muscle Weakness Extremities: Yes: WNL Edema: No Peripheral Pulses WNL: Yes Neurological: Yes: Pre-Existing Deficit Labs: CBC, BMP 12/05/19 05:45 12/04/19 05:40 INR, PTT INR 1.12 (0.83-1.09) H 11/29/19 05:40 Problem List - Problems (1) Chronic respiratory failure Assessment/Plan: -Mech vent -Pulmonary on board -Bronchodilators -Poor candidate for weaning at this time Problems reviewed: Yes Code(s): J96.10 - CHRONIC RESPIRATORY FAILURE, UNSP W HYPOXIA OR HYPERCAPNIA (2) Functional quadriplegia Problems reviewed: Yes Code(s): R53.2 - FUNCTIONAL QUADRIPLEGIA (3) Afib Assessment/Plan: -Continue Eliquis -Rate controlled, chronic Problems reviewed: Yes Code(s): I48.91 - UNSPECIFIED ATRIAL FIBRILLATION (4) Anemia Assessment/Plan: -Mildly low in iron% -Started on ferrous sulfate -Monitor H/H -Guaiac negative Problems reviewed: Yes Code(s): D64.9 - ANEMIA, UNSPECIFIED (5) Pneumonia Assessment/Plan: -On Levaquin Problems reviewed: Yes Code(s): J18.9 - PNEUMONIA, UNSPECIFIED ORGANISM Qualifiers: Pneumonia type: due to unspecified organism Laterality: unspecified laterality Lung location: unspecified part of lung Qualified Code(s): J18.9 - Pneumonia, unspecified organism Assessment/Plan see problem list
[2019-12-07] MEDS: MULTIVIT-MINERALS ORAL LIQUID GT SCH (12:04)
[2019-12-07] MEDS: levETIRAcetam 500 MG/5 ML ORAL SOLUTION (UNIT-DOSE CUPS) GT SCH ×2 (12:05→22:00)
[2019-12-07] MEDS: FERROUS SO4 300 MG/5 ML ORAL SOLN UNIT DOSE CUPS GT SCH (12:05)
[2019-12-07] MEDS: FAMOTIDINE 40 MG/5 ML ORAL SUSPENSION NGT SCH ×2 (12:06→22:00)
[2019-12-07] MEDS: ASCORBIC ACID 500 MG TABLET (FP) GT SCH (12:06)
--- NOTE | 2019-12-07 12:52 | PN ---
Progress Note (short form) - Note Progress Note: PULMONARY Vented, poorly responsive. No fevers recorded. Vital Signs Period Temp Pulse Resp BP Sys/Cole Pulse Ox Last 24 Hr 98.2 F-98.3 F 55-68 12-23 113-168/55-76 100-100 Gen: vented, poorly responsive Heart: RRR Lung: decreased breath sounds at the bases Abd: soft, nontender Ext: no edema CBC, BMP 12/05/19 05:45 12/04/19 05:40 Active Medications Acetaminophen (Tylenol Oral Solution -) 650 mg PEG Q6H PRN PRN Reason: PAIN LEVEL 4 - 6 Last Admin: 11/28/19 02:54 Dose: 650 mg Apixaban (Eliquis -) 5 mg PO BID [facility] Last Admin: 12/07/19 10:17 Dose: 5 mg Ascorbic Acid (Vitamin C -) 500 mg GT DAILY [facility] Last Admin: 12/07/19 12:06 Dose: 500 mg Atorvastatin Calcium (Lipitor -) 80 mg GT HS [facility] Last Admin: 12/06/19 21:09 Dose: 80 mg Famotidine (Pepcid) 20 mg NGT BID [facility] Last Admin: 12/07/19 12:06 Dose: Not Given Ferrous Sulfate (Feosol) 300 mg GT DAILY [facility] Last Admin: 12/07/19 12:05 Dose: Not Given Lactobacillus Acidophilus (Bacid -) 1 tab GT TID [facility] Last Admin: 12/07/19 05:18 Dose: 1 tab Levetiracetam (Keppra Oral Solution -) 500 mg GT BID [facility] Last Admin: 12/07/19 12:05 Dose: Not Given Levofloxacin (Levaquin -) 500 mg GT 0600 [facility] Last Admin: 12/07/19 05:18 Dose: 500 mg Midodrine (Proamatine -) 10 mg PO TID-MID [facility] Last Admin: 12/07/19 10:17 Dose: 10 mg Multivitamins/Minerals (Certavite-Antioxidant Liquid) 15 ml GT DAILY [facility] Last Admin: 12/07/19 12:04 Dose: Not Given A/P Chronic Respiratory Failure Pneumonia Atrial Fibrillation Anemia r/o GI Bleed h/o CVA Seizure Disorder - complete antibiotics - rate controlled - continue anticoagulation - monitor H/H - continue assist control - poor candidate for weaning at this time due to mental status - DVT prophylaxis
[2019-12-07] MEDS: ATORVASTATIN CA 80 MG TABLET (FP) GT SCH (21:57)
[2019-12-08] MEDS: LACTOBACILLUS ACIDOPHILUS 1 TABLET GT SCH ×3 (06:01→21:02)
--- NOTE | 2019-12-08 07:58 | DS ---
Physical Examination Vital Signs: Vital Signs Temperature 98.4 F 12/08/19 06:00 Pulse Rate 70 12/08/19 06:00 Respiratory Rate 18 12/08/19 06:00 Blood Pressure 105/58 L 12/08/19 06:00 O2 Sat by Pulse Oximetry (%) 100 12/07/19 20:50 Cardiovascular: Yes: S1, S2 Respiratory: Yes: Mechanically Ventilated Gastrointestinal: Yes: Normal Bowel Sounds, Soft Labs: CBC, BMP 12/05/19 05:45 12/04/19 05:40 Discharge Summary Problems reviewed: Yes Reason For Visit: PNEUMONIA Current Active Problems Afib (Acute) Anemia (Acute) CHF (congestive heart failure) (Acute) COPD (chronic obstructive pulmonary disease) (Acute) CVA (cerebral vascular accident) (Acute) Chronic respiratory failure (Acute) Fever (Acute) Functional quadriplegia (Acute) Pneumonia (Acute) Volume overload (Acute) Hospital Course: Chronic Respiratory Failure Pneumonia Atrial Fibrillation Anemia r/o GI Bleed---- h/o CVA EGD performed today revealing antral erythema and nodularity otherwise no obvious source of bleeding. Biopsies taken. See scanned report for details. No obvious contraindication to anticoagulation based on findings on this exam. Seizure Disorder - Problems (1) Anemia Assessment/Plan: S/P PRBC-Repeat pending STOOL FOR OCCULT BLOOD Negative GI AND HEM HOLD ELIQUIS Code(s): D64.9 - ANEMIA, UNSPECIFIED (2) Fever Assessment/Plan: OFF IV ABX PER ID--PO levaquin ID CONSULT appreciated Code(s): R50.9 - FEVER, UNSPECIFIED (3) CVA (cerebral vascular accident) Assessment/Plan: old Code(s): I63.9 - CEREBRAL INFARCTION, UNSPECIFIED (4) Afib Assessment/Plan: HOLD AC DUE TO SEVERE ANEMIA CARDIO Code(s): I48.91 - UNSPECIFIED ATRIAL FIBRILLATION (5) COPD (chronic obstructive pulmonary disease) Assessment/Plan: PULM ON BOARD Code(s): J44.9 - CHRONIC OBSTRUCTIVE PULMONARY DISEASE, UNSPECIFIED (6) CHF (congestive heart failure) Assessment/Plan: MONITOR --HOLD LASIX DUE TO HYPOTENSION CXR Code(s): I50.9 - HEART FAILURE, UNSPECIFIED dc planning snf Condition: Stable - Instructions Diet, Activity, Other Instructions: cbc cmp thursday cbc q week Referrals: Aris Wheatley MD [Primary Care Provider] - Disposition: [facility] F[facility] - Home Medications Comprehensive Discharge Medication List: Ambulatory Orders Acetaminophen 650 mg PO QID 11/24/19 Apixaban [Eliquis] 5 mg PO BID 11/24/19 Ascorbic Acid 500 mg PO DAILY 11/24/19 Atorvastatin Ca [Lipitor] 80 mg PO HS 11/24/19 Ferrous Sulfate [Feosol] 300 mg NGT DAILY 11/24/19 Ipratropium/Albuterol Sulfate [Iprat-Albut 0.5-3(2.5) mg/3 ml] 3 ml IH QID 11/24 L. Acidophilus/Pectin, [place] [Acidophilus Capsule] 1 each PO TID 11/24/19 Magnesium Oxide 400 mg PO BID 11/24/19 Midodrine HCl 10 mg PO DAILY 11/24/19 Omeprazole 40 mg PO DAILY 11/24/19 Acetaminophen Oral Solution [Tylenol Oral Solution -] 650 mg PEG Q6H PRN soln.oral 12/02/19 Famotidine [Pepcid] 20 mg NGT BID oral.susp 12/02/19 levETIRAcetam [Keppra Oral Solution -] 500 mg GT BID cup 12/02/19 levoFLOXacin [Levaquin -] 500 mg GT 0600 tablet 12/02/19
[2019-12-08] MEDS ORDERED: PT OWN MED DRAWER 7, Y5N ONE (10:46)
[2019-12-08] MEDS: MIDODRINE HCL 5 MG TABLET PO SCH ×3 (10:48→17:45)
[2019-12-08] MEDS: ASCORBIC ACID 500 MG TABLET (FP) GT SCH (10:48)
[2019-12-08] MEDS: FERROUS SO4 300 MG/5 ML ORAL SOLN UNIT DOSE CUPS GT SCH (10:48)
[2019-12-08] MEDS: levETIRAcetam 500 MG/5 ML ORAL SOLUTION (UNIT-DOSE CUPS) GT SCH ×2 (10:48→21:35)
[2019-12-08] MEDS: APIXABAN 5 MG TABLET PO SCH ×2 (10:48→21:02)
[2019-12-08] MEDS: FAMOTIDINE 40 MG/5 ML ORAL SUSPENSION NGT SCH ×2 (10:49→21:35)
[2019-12-08] MEDS: MULTIVIT-MINERALS ORAL LIQUID GT SCH (10:49)
--- NOTE | 2019-12-08 12:58 | PN ---
Progress Note (short form) - Note Progress Note: Remains poorly responsive on AC Mode of vent. No acute events overnight. Intake & Output 12/05/19 12/06/19 12/07/19 12/08/19 23:59 23:59 23:59 23:59 Intake Total 1820 1680 1320 960 Balance 1820 1680 1320 960 Last Vital Signs Temp Pulse Resp BP Pulse Ox 97.4 F L 61 13 101/50 L 100 12/08/19 10:00 12/08/19 10:00 12/08/19 10:00 12/08/19 10:00 12/08/19 09:00 Active Medications Acetaminophen (Tylenol Oral Solution -) 650 mg PEG Q6H PRN PRN Reason: PAIN LEVEL 4 - 6 Last Admin: 11/28/19 02:54 Dose: 650 mg Apixaban (Eliquis -) 5 mg PO BID [facility] Last Admin: 12/08/19 10:48 Dose: 5 mg Ascorbic Acid (Vitamin C -) 500 mg GT DAILY [facility] Last Admin: 12/08/19 10:48 Dose: 500 mg Atorvastatin Calcium (Lipitor -) 80 mg GT HS [facility] Last Admin: 12/07/19 21:57 Dose: 80 mg Famotidine (Pepcid) 20 mg NGT BID [facility] Last Admin: 12/08/19 10:49 Dose: 20 mg Ferrous Sulfate (Feosol) 300 mg GT DAILY [facility] Last Admin: 12/08/19 10:48 Dose: 300 mg Lactobacillus Acidophilus (Bacid -) 1 tab GT TID [facility] Last Admin: 12/08/19 06:01 Dose: 1 tab Levetiracetam (Keppra Oral Solution -) 500 mg GT BID [facility] Last Admin: 12/08/19 10:48 Dose: 500 mg Levofloxacin (Levaquin -) 500 mg GT 0600 [facility] Last Admin: 12/08/19 06:01 Dose: 500 mg Midodrine (Proamatine -) 10 mg PO TID-MID [facility] Last Admin: 12/08/19 10:48 Dose: 10 mg Multivitamins/Minerals (Certavite-Antioxidant Liquid) 15 ml GT DAILY [facility] Last Admin: 12/08/19 10:49 Dose: 15 ml Constitutional: Yes: Poorly responsive, No Distress, Vented Eyes: Yes: Conjunctiva Clear HENT: Yes: Atraumatic, Normocephalic Neck: Yes: Trachea Midline, Other (Tracheostomy intact ) Cardiovascular: Yes: Regular Rate and Rhythm Respiratory: Yes: Mechanically Ventilated, Rhonchi. No: Accessory Muscle Use, Rales, SOB, SOB on Exertion, Stridor, Tachypnea, Wheezes ...Inspection: Yes: WNL ...Clubbing: No Gastrointestinal: Yes: Normal Bowel Sounds, Soft Musculoskeletal: Yes: WNL Extremities: Yes: WNL Edema: No Peripheral Pulses WNL: Yes Integumentary: Yes: WNL Neurological: Yes: poorly responsive Labs: Assessment/Plan IMP: Chronic Respiratory Failure R/O PNA Anemia R/O GI Bleed S/P CVA PLAN: AC mode of vent Levaquin Mechanical VTE prophylaxis Poor candidate for weaning DC planning Dr Butler
[2019-12-08] MEDS: ATORVASTATIN CA 80 MG TABLET (FP) GT SCH (21:02)
[2019-12-09] MEDS: LACTOBACILLUS ACIDOPHILUS 1 TABLET GT SCH ×2 (05:44→14:55)
--- NOTE | 2019-12-09 08:18 | DS ---
Physical Examination Vital Signs: Vital Signs Temperature 97.5 F L 12/09/19 06:11 Pulse Rate 58 L 12/09/19 06:11 Respiratory Rate 16 12/09/19 06:11 Blood Pressure 115/68 12/09/19 06:11 O2 Sat by Pulse Oximetry (%) 100 12/08/19 20:00 Cardiovascular: Yes: S1, S2 Respiratory: Yes: Mechanically Ventilated Gastrointestinal: Yes: Normal Bowel Sounds, Soft Labs: CBC, BMP 12/05/19 05:45 12/04/19 05:40 Discharge Summary Problems reviewed: Yes Reason For Visit: PNEUMONIA Current Active Problems Afib (Acute) Anemia (Acute) CHF (congestive heart failure) (Acute) COPD (chronic obstructive pulmonary disease) (Acute) CVA (cerebral vascular accident) (Acute) Chronic respiratory failure (Acute) Fever (Acute) Functional quadriplegia (Acute) Pneumonia (Acute) Volume overload (Acute) Hospital Course: - Problems (1) Anemia Assessment/Plan: S/P PRBC-Repeat pending STOOL FOR OCCULT BLOOD Negative GI AND HEM HOLD ELIQUIS Code(s): D64.9 - ANEMIA, UNSPECIFIED (2) Fever Assessment/Plan: OFF IV ABX PER ID--PO levaquin ID CONSULT appreciated Code(s): R50.9 - FEVER, UNSPECIFIED (3) CVA (cerebral vascular accident) Assessment/Plan: old Code(s): I63.9 - CEREBRAL INFARCTION, UNSPECIFIED (4) Afib Assessment/Plan: HOLD AC DUE TO SEVERE ANEMIA CARDIO Code(s): I48.91 - UNSPECIFIED ATRIAL FIBRILLATION (5) COPD (chronic obstructive pulmonary disease) Assessment/Plan: PULM ON BOARD Code(s): J44.9 - CHRONIC OBSTRUCTIVE PULMONARY DISEASE, UNSPECIFIED (6) CHF (congestive heart failure) Assessment/Plan: MONITOR --HOLD LASIX DUE TO HYPOTENSION CXR Code(s): I50.9 - HEART FAILURE, UNSPECIFIED dc planning snf Condition: Stable - Instructions Diet, Activity, Other Instructions: cbc cmp thursday cbc q week Referrals: Aris Wheatley MD [Primary Care Provider] - Disposition: NURSING HOME FACILITY - Home Medications Comprehensive Discharge Medication List: Ambulatory Orders Acetaminophen 650 mg PO QID 11/24/19 Apixaban [Eliquis] 5 mg PO BID 11/24/19 Ascorbic Acid 500 mg PO DAILY 11/24/19 Atorvastatin Ca [Lipitor] 80 mg PO HS 11/24/19 Ferrous Sulfate [Feosol] 300 mg NGT DAILY 11/24/19 Ipratropium/Albuterol Sulfate [Iprat-Albut 0.5-3(2.5) mg/3 ml] 3 ml IH QID 11/24 L. Acidophilus/Pectin, [place] [Acidophilus Capsule] 1 each PO TID 11/24/19 Magnesium Oxide 400 mg PO BID 11/24/19 Midodrine HCl 10 mg PO DAILY 11/24/19 Omeprazole 40 mg PO DAILY 11/24/19 Acetaminophen Oral Solution [Tylenol Oral Solution -] 650 mg PEG Q6H PRN soln.oral 12/02/19 Famotidine [Pepcid] 20 mg NGT BID oral.susp 12/02/19 levETIRAcetam [Keppra Oral Solution -] 500 mg GT BID cup 12/02/19 levoFLOXacin [Levaquin -] 500 mg GT 0600 tablet 12/02/19
[2019-12-09] MEDS: APIXABAN 5 MG TABLET PO SCH (09:59)
[2019-12-09] MEDS: MULTIVIT-MINERALS ORAL LIQUID GT SCH (09:59)
[2019-12-09] MEDS: MIDODRINE HCL 5 MG TABLET PO SCH ×3 (09:59→17:36)
[2019-12-09] MEDS: FAMOTIDINE 40 MG/5 ML ORAL SUSPENSION NGT SCH (09:59)
[2019-12-09] MEDS: ASCORBIC ACID 500 MG TABLET (FP) GT SCH (09:59)
[2019-12-09] MEDS: levETIRAcetam 500 MG/5 ML ORAL SOLUTION (UNIT-DOSE CUPS) GT SCH (09:59)
[2019-12-09] MEDS: FERROUS SO4 300 MG/5 ML ORAL SOLN UNIT DOSE CUPS GT SCH (10:00)
--- NOTE | 2019-12-09 12:53 | PN ---
Progress Note (short form) - Note Progress Note: Remains poorly responsive on AC Mode of vent. No acute events overnight. Intake & Output 12/06/19 12/07/19 12/08/19 12/09/19 23:59 23:59 23:59 23:59 Intake Total 1680 1320 1940 1160 Balance 1680 1320 1940 1160 Last Vital Signs Temp Pulse Resp BP Pulse Ox 98.0 F 65 19 103/50 L 100 12/09/19 10:00 12/09/19 10:00 12/09/19 10:00 12/09/19 10:00 12/08/19 20:00 Active Medications Acetaminophen (Tylenol Oral Solution -) 650 mg PEG Q6H PRN PRN Reason: PAIN LEVEL 4 - 6 Last Admin: 11/28/19 02:54 Dose: 650 mg Apixaban (Eliquis -) 5 mg PO BID [facility] Last Admin: 12/09/19 09:59 Dose: 5 mg Ascorbic Acid (Vitamin C -) 500 mg GT DAILY [facility] Last Admin: 12/09/19 09:59 Dose: 500 mg Atorvastatin Calcium (Lipitor -) 80 mg GT HS [facility] Last Admin: 12/08/19 21:02 Dose: 80 mg Famotidine (Pepcid) 20 mg NGT BID [facility] Last Admin: 12/09/19 09:59 Dose: 20 mg Ferrous Sulfate (Feosol) 300 mg GT DAILY [facility] Last Admin: 12/09/19 10:00 Dose: 300 mg Lactobacillus Acidophilus (Bacid -) 1 tab GT TID [facility] Last Admin: 12/09/19 05:44 Dose: 1 tab Levetiracetam (Keppra Oral Solution -) 500 mg GT BID [facility] Last Admin: 12/09/19 09:59 Dose: 500 mg Levofloxacin (Levaquin -) 500 mg GT 0600 [facility] Last Admin: 12/09/19 05:57 Dose: 500 mg Midodrine (Proamatine -) 10 mg PO TID-MID [facility] Last Admin: 12/09/19 09:59 Dose: 10 mg Multivitamins/Minerals (Certavite-Antioxidant Liquid) 15 ml GT DAILY [facility] Last Admin: 12/09/19 09:59 Dose: 15 ml Constitutional: Yes: Poorly responsive, No Distress, Vented Eyes: Yes: Conjunctiva Clear HENT: Yes: Atraumatic, Normocephalic Neck: Yes: Trachea Midline, Other (Tracheostomy intact ) Cardiovascular: Yes: Regular Rate and Rhythm Respiratory: Yes: Mechanically Ventilated, Rhonchi. No: Accessory Muscle Use, Rales, SOB, SOB on Exertion, Stridor, Tachypnea, Wheezes ...Inspection: Yes: WNL ...Clubbing: No Gastrointestinal: Yes: Normal Bowel Sounds, Soft Musculoskeletal: Yes: WNL Extremities: Yes: WNL Edema: No Peripheral Pulses WNL: Yes Integumentary: Yes: WNL Neurological: Yes: poorly responsive Labs: Assessment/Plan IMP: Chronic Respiratory Failure R/O PNA Anemia R/O GI Bleed S/P CVA PLAN: AC mode of vent Mechanical VTE prophylaxis Poor candidate for weaning DC planning Dr Butler
[2019-12-09 18:03] VITALS: BP 133/66; PULSE 60; TEMP 97.8
== END 2019-12-09 19:25 | DRG 130 ==
LOC: JER 14:56 → JERBED 17:38 → J2W 11-25 08:36
PROVIDERS: ADMIT Family Medicine; ATTEND Family Medicine
PROC: 5A1955Z Respiratory Ventilation, Greater than 96 Consecutive Hours (ICD-10-PCS; principal; 2019-11-24)
PROC: 3E0G76Z Introduction of Nutritional Substance into Upper GI, Via Natural or Artificial Opening (ICD-10-PCS; 2019-11-24)
PROC: 0DB68ZX Excision of Stomach, Via Natural or Artificial Opening Endoscopic, Diagnostic (ICD-10-PCS; 2019-11-30)
DX: J18.9 Pneumonia, unspecified organism (principal); R53.2 Functional quadriplegia; J44.9 Chronic obstructive pulmonary disease, unspecified; Z93.1 Gastrostomy status; I11.0 Hypertensive heart disease with heart failure; I50.9 Heart failure, unspecified; I47.1 Supraventricular tachycardia; J96.10 Chronic respiratory failure, unspecified whether with hypoxia or hypercapnia; I48.91 Unspecified atrial fibrillation; Z79.01 Long term (current) use of anticoagulants; Z99.11 Dependence on respirator [ventilator] status; Z93.0 Tracheostomy status; E78.5 Hyperlipidemia, unspecified; D64.9 Anemia, unspecified; G40.909 Epilepsy, unspecified, not intractable, without status epilepticus; E66.9 Obesity, unspecified; Z68.29 Body mass index [BMI] 29.0-29.9, adult; K29.70 Gastritis, unspecified, without bleeding; J98.11 Atelectasis
CPT/HCPCS: 36415; 36430; 36511; 71045-TC-FY; 80048; 80053; 81003; 82272; 82550; 82607; 82728; 82746; 82803; 82962; 83010; 83540; 83550; 83605; 83615; 83735; 83880; 84443; 84484; 85025; 85027; 85044; 85610; 85730; 86850; 86880; 86900; 86901; 86922; 87040; 87070; 87077; 87086; 87186; 87205; 87804; 87899; 88305-TC; 94002; 99285-25; J0131; J1644; J1756; P9038; P9058

== ENCOUNTER 2021-02-17 22:00 | Emergency (ER) | payer OTHER ==
[2021-02-17 22:09] VITALS: BP 119/77; PULSE 93; TEMP 98.8
== END 2021-02-18 04:46 ==
LOC: JER 22:00
DX: K94.23 Gastrostomy malfunction (principal)
CPT/HCPCS: 74018-TC-FY; 99284-25

== ENCOUNTER 2021-04-20 17:08 | Inpatient (IN) | payer OTHER ==
[2021-04-20 20:30] LABS: BASO % 0.6 % (0-2.0); EOS % 0.9 % (0-4.5); HEMATOCRIT 32.5 % (32.4-45.2); HEMOGLOBIN 10.7 GM/dL (10.7-15.3); LYMPH % 14.3 % (8-40); MCH 28.3 pg (25.7-33.7); MCHC 32.8 g/dl (32.0-36.0); MEAN CELL VOLUME 86.2 fl (80-96); MEAN PLT VOLUME 7.5 fl (7.5-11.1); MONO % 7.3 % (3.8-10.2); NEUT % 76.9 % (42.8-82.8); PLATELET COUNT 320 10^3/uL (134-434); RBC 3.77 M/mm3 (3.60-5.2); RDW 18.3 % (11.6-15.6)
[2021-04-20 20:36] LABS: INR 1.2 (0.83-1.09); PROTHROMBIN TIME (PATIENT) 14.4 SEC (9.7-13.0)
[2021-04-20 20:53] LABS: CHLORIDE 107 mmol/L (98-107); SODIUM 145 mmol/L (136-145)
[2021-04-20 20:55] LABS: ALBUMIN 3.3 g/dl (3.4-5.0); ANION GAP 9 MMOL/L (8-16); BLOOD UREA NITROGEN 29.8 mg/dL (7-18); CALCIUM 9.1 mg/dL (8.5-10.1); CO2 29 mmol/L (21-32); GLUCOSE,RANDOM 118 mg/dL (74-106)
[2021-04-20 20:58] LABS: SGPT/ALT 20 U/L (13-61)
[2021-04-20 20:59] LABS: SGOT/AST 19 U/L (15-37)
[2021-04-20 21:00] LABS: BILIRUBIN,TOTAL 0.9 mg/dL (0.2-1); TOT PROT 7.9 g/dl (6.4-8.2)
[2021-04-20 21:01] LABS: ALK PHOS 77 U/L (45-117)
[2021-04-20] MEDS ORDERED: VANCOMYCIN 1 GM in D5W (PRE-DOCKED) 1,000 MG/250 ML IVPB ONE (21:53)
[2021-04-20] MEDS ORDERED: CLINDAMYCIN 600MG PREMIX IVPB 600 MG/50 ML BAG IVPB ONE (21:53)
[2021-04-20] MEDS ORDERED: PIPERACILLIN/TAZOB 4.5 GM 4.5 GM in DEXTROSE 5%-WATER 100 ML IVPB ONE (21:53)
[2021-04-20] MEDS ORDERED: PIPERACILLIN/TAZOB 4.5 GM 4.5 GM/100 ML BAG IVPB ONE (22:00)
[2021-04-20] MEDS ORDERED: VANCOMYCIN 1 GRAM (PRE-DOCKED) 1,000 MG/250 ML BAG IVPB ONE (22:00)
[2021-04-21 01:14] LABS: EPI CELLS 16 /uL (0-25.1); HYALINE CASTS 2 /uL (0-3.1); URINE APPEARANCE CLEAR; URINE BACTERIA 31 /uL (0-1359); URINE BILIRUBIN NEGATIVE (NEGATIVE); URINE COLOR YELLOW; URINE GLUCOSE (UA) NEGATIVE (NEGATIVE); URINE KETONE 2+ (NEGATIVE); URINE LEUK ESTERASE NEGATIVE (NEGATIVE); URINE NITRITE NEGATIVE (NEGATIVE); URINE PROTEIN 2+ (NEGATIVE); URINE RBC 16 /uL (0-23.9); URINE WBC 3 /uL (0-25.8)
[2021-04-21] MEDS ORDERED: DEXTROSE 5%-NORMAL SALINE 1,000 ML IV SCH (03:30)
[2021-04-21 06:06] LABS: BASO % 0.7 % (0-2.0); EOS % 1.7 % (0-4.5); HEMATOCRIT 32.6 % (32.4-45.2); HEMOGLOBIN 10.4 GM/dL (10.7-15.3); LYMPH % 12.9 % (8-40); MCH 27.5 pg (25.7-33.7); MCHC 31.8 g/dl (32.0-36.0); MEAN CELL VOLUME 86.4 fl (80-96); MEAN PLT VOLUME 8.1 fl (7.5-11.1); MONO % 10.8 % (3.8-10.2); NEUT % 73.9 % (42.8-82.8); PLATELET COUNT 301 10^3/uL (134-434); RBC 3.77 M/mm3 (3.60-5.2); RDW 18.6 % (11.6-15.6); WHITE BLOOD COUNT 9.3 K/mm3 (4.0-10.0)
[2021-04-21 06:28] LABS: CALCIUM 8.7 mg/dL (8.5-10.1)
[2021-04-21 06:29] LABS: ALBUMIN 3.1 g/dl (3.4-5.0); BLOOD UREA NITROGEN 27.6 mg/dL (7-18)
[2021-04-21 06:34] LABS: BILIRUBIN,TOTAL 1.2 mg/dL (0.2-1); TOT PROT 7.7 g/dl (6.4-8.2)
[2021-04-21] MEDS: ALBUTEROL SO4 2.5/IPRATROPIUM 0.5 INH SOL 3 ML VIAL.NEB. NEB SCH ×3 (11:37→21:54)
[2021-04-21] MEDS: INSULIN SLIDING SCALE (NOVOLOG) 1 VIAL SQ SCH ×3 (17:43→21:19)
[2021-04-21] MEDS: DEXTROSE 5%-NORMAL SALINE 1,000 ML IV SCH (17:54)
[2021-04-21] MEDS: VANCOMYCIN 1 GRAM (PRE-DOCKED) 1,000 MG/250 ML BAG IVPB SCH (17:57)
[2021-04-21] MEDS ORDERED: PIPERACILLIN/TAZOBACTAM 3.375 GM VIAL IVPB ONE (19:30)
[2021-04-21] MEDS ORDERED: DEXTROSE 5%-WATER - 50 ML IVPB ONE (19:31)
[2021-04-21] MEDS: PIPERACILLIN/TAZOB 3.375 GM 3.375 GM in DEXTROSE 5%-WATER - 50 ML IVPB SCH (20:05)
[2021-04-22] MEDS ORDERED: DEXTROSE 5%-WATER - 50 ML IVPB ONE ×3 (01:27→18:01)
[2021-04-22] MEDS ORDERED: PIPERACILLIN/TAZOBACTAM 3.375 GM VIAL IVPB ONE ×3 (01:27→18:01)
[2021-04-22] MEDS: PIPERACILLIN/TAZOB 3.375 GM 3.375 GM in DEXTROSE 5%-WATER - 50 ML IVPB SCH ×3 (01:47→18:32)
[2021-04-22] MEDS: INSULIN SLIDING SCALE (NOVOLOG) 1 VIAL SQ SCH ×6 (01:48→23:54)
[2021-04-22] MEDS: VANCOMYCIN 1 GRAM (PRE-DOCKED) 1,000 MG/250 ML BAG IVPB SCH ×2 (05:06→16:44)
[2021-04-22] MEDS: ALBUTEROL SO4 2.5/IPRATROPIUM 0.5 INH SOL 3 ML VIAL.NEB. NEB SCH ×4 (07:30→20:35)
[2021-04-22] MEDS: DEXTROSE 5%-NORMAL SALINE 1,000 ML IV SCH ×2 (08:21→18:30)
[2021-04-23] MEDS ORDERED: DEXTROSE 5%-WATER - 50 ML IVPB ONE ×3 (02:30→18:26)
[2021-04-23] MEDS ORDERED: PIPERACILLIN/TAZOBACTAM 3.375 GM VIAL IVPB ONE ×3 (02:30→18:25)
[2021-04-23] MEDS: PIPERACILLIN/TAZOB 3.375 GM 3.375 GM in DEXTROSE 5%-WATER - 50 ML IVPB SCH ×3 (02:32→18:30)
[2021-04-23] MEDS: DEXTROSE 5%-NORMAL SALINE 1,000 ML IV SCH (04:47)
[2021-04-23] MEDS: VANCOMYCIN 1 GRAM (PRE-DOCKED) 1,000 MG/250 ML BAG IVPB SCH ×2 (04:50→20:44)
[2021-04-23] MEDS: INSULIN SLIDING SCALE (NOVOLOG) 1 VIAL SQ SCH ×3 (06:44→18:34)
[2021-04-23] MEDS: ALBUTEROL SO4 2.5/IPRATROPIUM 0.5 INH SOL 3 ML VIAL.NEB. NEB SCH ×4 (08:34→20:32)
[2021-04-23 11:48] LABS: BASO % 0.8 % (0-2.0); EOS % 3.8 % (0-4.5); HEMATOCRIT 26.2 % (32.4-45.2); HEMOGLOBIN 8.3 GM/dL (10.7-15.3); LYMPH % 12.5 % (8-40); MCH 27.4 pg (25.7-33.7); MCHC 31.6 g/dl (32.0-36.0); MEAN CELL VOLUME 86.7 fl (80-96); MEAN PLT VOLUME 7.6 fl (7.5-11.1); MONO % 10.2 % (3.8-10.2); NEUT % 72.7 % (42.8-82.8); PLATELET COUNT 253 10^3/uL (134-434); RBC 3.03 M/mm3 (3.60-5.2); RDW 17.8 % (11.6-15.6); WHITE BLOOD COUNT 7.5 K/mm3 (4.0-10.0)
[2021-04-23 12:12] LABS: CHLORIDE 109 mmol/L (98-107); SODIUM 145 mmol/L (136-145)
[2021-04-23 12:15] LABS: ALBUMIN 2.5 g/dl (3.4-5.0); BLOOD UREA NITROGEN 22.6 mg/dL (7-18); CALCIUM 7.9 mg/dL (8.5-10.1); CO2 28 mmol/L (21-32); GLUCOSE,RANDOM 140 mg/dL (74-106)
[2021-04-23 12:18] LABS: CREATININE 1.2 mg/dL (0.55-1.3); SGOT/AST 32 U/L (15-37); SGPT/ALT 31 U/L (13-61)
[2021-04-23 12:20] LABS: BILIRUBIN,TOTAL 0.5 mg/dL (0.2-1); TOT PROT 6.2 g/dl (6.4-8.2)
[2021-04-23 12:21] LABS: ALK PHOS 95 U/L (45-117); ANION GAP 8 MMOL/L (8-16)
[2021-04-23] MEDS ORDERED: POTASSIUM CHLORIDE TABS 20 MEQ TABLET.ER (FP) PO ONE (17:43)
[2021-04-23 22:02] LABS: BASO % 0.6 % (0-2.0); EOS % 3.8 % (0-4.5); HEMATOCRIT 26.8 % (32.4-45.2); HEMOGLOBIN 8.8 GM/dL (10.7-15.3); LYMPH % 13.6 % (8-40); MCHC 32.8 g/dl (32.0-36.0); MEAN CELL VOLUME 85.5 fl (80-96); MEAN PLT VOLUME 6.8 fl (7.5-11.1); MONO % 7.6 % (3.8-10.2); NEUT % 74.4 % (42.8-82.8); PLATELET COUNT 262 10^3/uL (134-434); RBC 3.13 M/mm3 (3.60-5.2); RDW 17.5 % (11.6-15.6); WHITE BLOOD COUNT 7.4 K/mm3 (4.0-10.0)
[2021-04-23 22:56] LABS: BLOOD UREA NITROGEN 22.7 mg/dL (7-18); CALCIUM 8.3 mg/dL (8.5-10.1)
[2021-04-23 23:00] LABS: CREATININE 1.2 mg/dL (0.55-1.3)
[2021-04-24] MEDS: INSULIN SLIDING SCALE (NOVOLOG) 1 VIAL SQ SCH ×5 (00:38→23:13)
[2021-04-24] MEDS ORDERED: DEXTROSE 5%-WATER - 50 ML IVPB ONE ×3 (00:46→17:02)
[2021-04-24] MEDS ORDERED: PIPERACILLIN/TAZOBACTAM 3.375 GM VIAL IVPB ONE ×3 (00:46→17:02)
[2021-04-24] MEDS: PIPERACILLIN/TAZOB 3.375 GM 3.375 GM in DEXTROSE 5%-WATER - 50 ML IVPB SCH ×3 (02:09→18:20)
[2021-04-24] MEDS: ALBUTEROL SO4 2.5/IPRATROPIUM 0.5 INH SOL 3 ML VIAL.NEB. NEB SCH ×4 (08:25→20:35)
[2021-04-24 09:24] LABS: BASO % 0.9 % (0-2.0); EOS % 4.2 % (0-4.5); HEMATOCRIT 24.7 % (32.4-45.2); LYMPH % 14.7 % (8-40); MCH 27.9 pg (25.7-33.7); MCHC 32.5 g/dl (32.0-36.0); MEAN CELL VOLUME 85.8 fl (80-96); MEAN PLT VOLUME 7.7 fl (7.5-11.1); MONO % 7.3 % (3.8-10.2); NEUT % 72.9 % (42.8-82.8); PLATELET COUNT 221 10^3/uL (134-434); RBC 2.88 M/mm3 (3.60-5.2); RDW 17.7 % (11.6-15.6); WHITE BLOOD COUNT 6.9 K/mm3 (4.0-10.0)
[2021-04-24 10:11] LABS: ALBUMIN 2.5 g/dl (3.4-5.0); BILIRUBIN,TOTAL 0.4 mg/dL (0.2-1)
[2021-04-24 10:12] LABS: TOT PROT 6.2 g/dl (6.4-8.2)
[2021-04-24 10:13] LABS: CALCIUM 8.2 mg/dL (8.5-10.1)
[2021-04-24 10:14] LABS: CREATININE 1.1 mg/dL (0.55-1.3)
[2021-04-24] MEDS: PANTOPRAZOLE SODIUM 40 MG VIAL IVPUSH SCH (11:15)
[2021-04-25] MEDS ORDERED: DEXTROSE 5%-WATER - 50 ML IVPB ONE ×3 (01:18→17:48)
[2021-04-25] MEDS ORDERED: PIPERACILLIN/TAZOBACTAM 3.375 GM VIAL IVPB ONE ×3 (01:18→17:48)
[2021-04-25] MEDS: PIPERACILLIN/TAZOB 3.375 GM 3.375 GM in DEXTROSE 5%-WATER - 50 ML IVPB SCH ×3 (02:14→18:08)
[2021-04-25] MEDS: INSULIN SLIDING SCALE (NOVOLOG) 1 VIAL SQ SCH ×3 (05:13→18:08)
[2021-04-25] MEDS: ALBUTEROL SO4 2.5/IPRATROPIUM 0.5 INH SOL 3 ML VIAL.NEB. NEB SCH ×4 (07:46→20:08)
[2021-04-25] MEDS: PANTOPRAZOLE SODIUM 40 MG VIAL IVPUSH SCH (10:25)
[2021-04-25 11:57] LABS: BASO % 0.7 % (0-2.0); EOS % 2.9 % (0-4.5); HEMATOCRIT 27.1 % (32.4-45.2); HEMOGLOBIN 8.5 GM/dL (10.7-15.3); LYMPH % 13.5 % (8-40); MCH 27.3 pg (25.7-33.7); MCHC 31.5 g/dl (32.0-36.0); MEAN CELL VOLUME 86.5 fl (80-96); MEAN PLT VOLUME 8.2 fl (7.5-11.1); MONO % 5.7 % (3.8-10.2); NEUT % 77.2 % (42.8-82.8); PLATELET COUNT 249 10^3/uL (134-434); RBC 3.13 M/mm3 (3.60-5.2); RDW 17.8 % (11.6-15.6); WHITE BLOOD COUNT 9.1 K/mm3 (4.0-10.0)
[2021-04-25 12:23] LABS: CALCIUM 8.1 mg/dL (8.5-10.1)
[2021-04-25 12:24] LABS: ALBUMIN 2.6 g/dl (3.4-5.0); BLOOD UREA NITROGEN 22.4 mg/dL (7-18); MAGNESIUM 2.1 mg/dL (1.8-2.4)
[2021-04-25 12:27] LABS: CREATININE 1.1 mg/dL (0.55-1.3)
[2021-04-25 12:28] LABS: BILIRUBIN,TOTAL 0.4 mg/dL (0.2-1)
[2021-04-25 12:29] LABS: TOT PROT 6.4 g/dl (6.4-8.2)
[2021-04-26] MEDS: INSULIN SLIDING SCALE (NOVOLOG) 1 VIAL SQ SCH ×5 (00:12→23:46)
[2021-04-26] MEDS ORDERED: PIPERACILLIN/TAZOBACTAM 3.375 GM VIAL IVPB ONE ×2 (01:13→11:11)
[2021-04-26] MEDS ORDERED: DEXTROSE 5%-WATER - 50 ML IVPB ONE ×2 (01:14→11:12)
[2021-04-26] MEDS: PIPERACILLIN/TAZOB 3.375 GM 3.375 GM in DEXTROSE 5%-WATER - 50 ML IVPB SCH ×2 (01:37→11:00)
[2021-04-26] MEDS: ALBUTEROL SO4 2.5/IPRATROPIUM 0.5 INH SOL 3 ML VIAL.NEB. NEB SCH (08:00)
[2021-04-26 09:30] LABS: BASO % 0.9 % (0-2.0); EOS % 3.9 % (0-4.5); HEMATOCRIT 27.7 % (32.4-45.2); HEMOGLOBIN 8.6 GM/dL (10.7-15.3); MCH 26.8 pg (25.7-33.7); MEAN CELL VOLUME 86.3 fl (80-96); MONO % 6.6 % (3.8-10.2); NEUT % 72.6 % (42.8-82.8); PLATELET COUNT 250 10^3/uL (134-434); RBC 3.21 M/mm3 (3.60-5.2); RDW 17.8 % (11.6-15.6); WHITE BLOOD COUNT 9.1 K/mm3 (4.0-10.0)
[2021-04-26 09:57] LABS: CALCIUM 8.5 mg/dL (8.5-10.1)
[2021-04-26 09:58] LABS: ALBUMIN 2.6 g/dl (3.4-5.0); BLOOD UREA NITROGEN 22.3 mg/dL (7-18)
[2021-04-26 10:02] LABS: BILIRUBIN,TOTAL 0.7 mg/dL (0.2-1); TOT PROT 6.7 g/dl (6.4-8.2)
[2021-04-26] MEDS: PANTOPRAZOLE SODIUM 40 MG VIAL IVPUSH SCH (10:40)
[2021-04-26 11:03] VITALS: BMI 32.8
[2021-04-26] MEDS ORDERED: PT OWN MED DRAWER 7, Y5N ONE (18:25)
[2021-04-26] MEDS: AMOX TR/POTASSIUM CLAVULANATE 600 MG/5 ML PO SCH (18:36)
[2021-04-27] MEDS: INSULIN SLIDING SCALE (NOVOLOG) 1 VIAL SQ SCH ×3 (05:55→17:27)
[2021-04-27] MEDS: AMOX TR/POTASSIUM CLAVULANATE 600 MG/5 ML PO SCH ×2 (09:45→17:26)
[2021-04-27] MEDS: PANTOPRAZOLE SODIUM 40 MG VIAL IVPUSH SCH (10:13)
[2021-04-27] MEDS ORDERED: ALBUTEROL SO4 2.5/IPRATROPIUM 0.5 INH SOL 3 ML VIAL.NEB. NEB ONE (20:24)
[2021-04-28] MEDS: INSULIN SLIDING SCALE (NOVOLOG) 1 VIAL SQ SCH ×4 (00:52→17:42)
[2021-04-28] MEDS: PANTOPRAZOLE SODIUM 40 MG VIAL IVPUSH SCH (09:55)
[2021-04-28] MEDS: AMOX TR/POTASSIUM CLAVULANATE 600 MG/5 ML PO SCH ×2 (09:56→17:42)
[2021-04-29] MEDS: INSULIN SLIDING SCALE (NOVOLOG) 1 VIAL SQ SCH ×4 (00:22→17:00)
[2021-04-29] MEDS ORDERED: PT OWN MED DRAWER 7, Y5N ONE (10:41)
[2021-04-29] MEDS: PANTOPRAZOLE SODIUM 40 MG VIAL IVPUSH SCH (11:37)
[2021-04-29] MEDS: AMOX TR/POTASSIUM CLAVULANATE 600 MG/5 ML PO SCH ×2 (11:38→16:55)
[2021-04-29 20:13] VITALS: BP 128/60; PULSE 77; TEMP 98.5
[2021-04-29] MEDS ORDERED: INSULIN SLIDING SCALE (NOVOLOG) 1 VIAL SQ ONE (20:24)
== END 2021-04-29 23:30 | DRG 252 ==
LOC: JER 17:08 → JERBED 04-21 02:50 → J5S 04-21 10:18
PROVIDERS: ADMIT Hospitalist; ATTEND Family Medicine
PROC: 5A1955Z Respiratory Ventilation, Greater than 96 Consecutive Hours (ICD-10-PCS; principal; 2021-04-20)
DX: K94.22 Gastrostomy infection (principal); J98.11 Atelectasis; J18.9 Pneumonia, unspecified organism; E78.5 Hyperlipidemia, unspecified; L03.311 Cellulitis of abdominal wall; J96.10 Chronic respiratory failure, unspecified whether with hypoxia or hypercapnia; R53.2 Functional quadriplegia; J44.9 Chronic obstructive pulmonary disease, unspecified; I48.91 Unspecified atrial fibrillation; I11.0 Hypertensive heart disease with heart failure; I50.9 Heart failure, unspecified; L08.9 Local infection of the skin and subcutaneous tissue, unspecified; D64.9 Anemia, unspecified; Z93.0 Tracheostomy status; Z86.73 Personal history of transient ischemic attack (TIA), and cerebral infarction without residual deficits
CPT/HCPCS: 36415; 71045-TC-FY; 74018-TC-FY; 74177-TC; 80048; 80053; 81003; 82272; 82550; 82962; 83605; 83735; 84484; 85025; 85610; 85730; 86850; 86900; 86901; 87040; 87086; 87324; 87449; 93005; 93010; 94002; 94640; 99285-25; C9803; G0480; U0003; U0005

== ENCOUNTER 2021-11-01 18:29 | Inpatient (IN) | payer OTHER ==
[2021-11-01 19:31] LABS: BASO % 0.8 % (0-2.0); EOS % 2.6 % (0-4.5); HEMATOCRIT 21.4 % (32.4-45.2); LYMPH % 11.7 % (8-40); MCH 24.6 pg (25.7-33.7); MCHC 30.8 g/dl (32.0-36.0); MEAN CELL VOLUME 79.9 fl (80-96); MEAN PLT VOLUME 6.7 fl (7.5-11.1); MONO % 6.7 % (3.8-10.2); NEUT % 78.2 % (42.8-82.8); PLATELET COUNT 395 10^3/uL (134-434); RBC 2.68 M/mm3 (3.60-5.2); RDW 18.8 % (11.6-15.6); VENOUS BASE EXCESS 10.9 mmol/L (-2-2); VENOUS O2 SATURATION 52.4 % (70-80); VENOUS PCO2 58.9 mmHg (38-52); VENOUS PH 7.411 (7.310-7.410); WHITE BLOOD COUNT 12.1 K/mm3 (4.0-10.0)
[2021-11-01 19:37] LABS: HEMOGLOBIN 6.6 GM/dL (10.7-15.3)
[2021-11-01 19:38] LABS: INR 1.21 (0.83-1.09); PROTHROMBIN TIME (PATIENT) 13.9 SEC (9.7-13.0)
[2021-11-01 19:41] LABS: ACTIVATED PTT 23.2 SECONDS (25.2-36.5)
[2021-11-01 19:51] LABS: EPI CELLS 22 /uL (0-25.1); HYALINE CASTS 0 /uL (0-3.1); PH,URINE 8.5 (5.0-8.0); URINE APPEARANCE CLEAR; URINE BACTERIA 292 /uL (0-1359); URINE BILIRUBIN NEGATIVE (NEGATIVE); URINE COLOR YELLOW; URINE GLUCOSE (UA) NEGATIVE (NEGATIVE); URINE KETONE NEGATIVE (NEGATIVE); URINE LEUK ESTERASE NEGATIVE (NEGATIVE); URINE NITRITE NEGATIVE (NEGATIVE); URINE PROTEIN 1+ (NEGATIVE); URINE RBC 26 /uL (0-23.9); URINE WBC 7 /uL (0-25.8)
[2021-11-01 20:10] LABS: CHLORIDE 102 mmol/L (98-107); SODIUM 141 mmol/L (136-145)
[2021-11-01 20:12] LABS: ALBUMIN 2.4 g/dl (3.4-5.0); ANION GAP 4 MMOL/L (8-16); BLOOD UREA NITROGEN 41.8 mg/dL (7-18); CALCIUM 8.6 mg/dL (8.5-10.1); CO2 35 mmol/L (21-32); GLUCOSE,RANDOM 119 mg/dL (74-106); LIPASE 159 U/L (73-393)
[2021-11-01 20:15] LABS: CREATININE 1.1 mg/dL (0.55-1.3); SGOT/AST 15 U/L (15-37); SGPT/ALT 14 U/L (13-61)
[2021-11-01 20:17] LABS: BILIRUBIN,TOTAL 0.4 mg/dL (0.2-1); TOT PROT 7.4 g/dl (6.4-8.2)
[2021-11-01 20:18] LABS: ALK PHOS 57 U/L (45-117)
[2021-11-02] MEDS ORDERED: FUROSEMIDE 20 MG TABLET (FP) GT SCH (07:00)
[2021-11-02 07:32] LABS: BASO % 0.4 % (0-2.0); EOS % 2.1 % (0-4.5); HEMATOCRIT 29.2 % (32.4-45.2); HEMOGLOBIN 9.4 GM/dL (10.7-15.3); LYMPH % 12.5 % (8-40); MCHC 32.2 g/dl (32.0-36.0); MEAN CELL VOLUME 80.7 fl (80-96); MEAN PLT VOLUME 6.8 fl (7.5-11.1); MONO % 7.1 % (3.8-10.2); NEUT % 77.9 % (42.8-82.8); PLATELET COUNT 381 10^3/uL (134-434); RBC 3.62 M/mm3 (3.60-5.2); WHITE BLOOD COUNT 9.5 K/mm3 (4.0-10.0)
[2021-11-02] MEDS: ALBUTEROL SO4 2.5/IPRATROPIUM 0.5 INH SOL 3 ML VIAL.NEB. NEB SCH ×5 (07:45→20:16)
[2021-11-02 07:52] LABS: CALCIUM 8.4 mg/dL (8.5-10.1)
[2021-11-02 07:53] LABS: BLOOD UREA NITROGEN 37.5 mg/dL (7-18)
[2021-11-02] MEDS ORDERED: LACTOBACILLUS ACIDOPHILUS 1 TABLET GT SCH (10:00)
[2021-11-02] MEDS ORDERED: MAGNESIUM OXIDE 400 MG TABLET (FP) GT SCH (10:00)
[2021-11-02] MEDS ORDERED: levETIRAcetam 500 MG/5 ML ORAL SOLUTION (UNIT-DOSE CUPS) GT SCH (10:00)
[2021-11-02] MEDS ORDERED: ZINC SULFATE 220 MG CAPSULE (FP) GT SCH (10:00)
[2021-11-02] MEDS ORDERED: FERROUS SO4 300 MG/5 ML ORAL SOLN UNIT DOSE CUPS GT SCH (10:00)
[2021-11-02] MEDS ORDERED: FAMOTIDINE 40 MG/5 ML ORAL SUSPENSION NGT SCH (10:00)
[2021-11-02] MEDS ORDERED: ASCORBIC ACID 500 MG TABLET (FP) GT SCH (10:00)
[2021-11-02] MEDS ORDERED: MIDODRINE HCL 5 MG TABLET GT SCH (10:00)
[2021-11-02] MEDS ORDERED: ASCORBIC ACID 500 MG TABLET (FP) ONE (10:44)
[2021-11-02] MEDS ORDERED: FUROSEMIDE 40 MG TABLET (FP) ONE (10:44)
[2021-11-02] MEDS ORDERED: FAMOTIDINE 20 MG TABLET ONE (10:44)
[2021-11-02] MEDS ORDERED: MAGNESIUM OXIDE 400 MG TABLET (FP) ONE (10:44)
[2021-11-02] MEDS: TRIAMCINOLONE ACET 0.1% CREAM 15 GM TUBE TP SCH ×2 (10:47→21:33)
[2021-11-02] MEDS ORDERED: ZINC SULFATE 220 MG CAPSULE (FP) ONE (10:51)
[2021-11-02] MEDS: FUROSEMIDE 40 MG/4 ML INJECTABLE VIAL IVPUSH SCH (14:00)
[2021-11-02] MEDS: PANTOPRAZOLE SODIUM 40 MG VIAL IVPUSH SCH (14:00)
[2021-11-02] MEDS: levETIRAcetam 500 MG/5 ML INJECTION VIAL IVPB SCH (21:48)
[2021-11-02] MEDS ORDERED: ATORVASTATIN CA 80 MG TABLET (FP) GT SCH (22:00)
[2021-11-02] MEDS ORDERED: DOCUSATE NA 100 MG/10 ML UNIT-DOSE CUPS GT SCH (22:00)
[2021-11-03] MEDS: ALBUTEROL SO4 2.5/IPRATROPIUM 0.5 INH SOL 3 ML VIAL.NEB. NEB SCH ×4 (07:43→20:14)
[2021-11-03 09:21] LABS: BASO % 0.5 % (0-2.0); EOS % 0.2 % (0-4.5); HEMATOCRIT 22.9 % (32.4-45.2); HEMOGLOBIN 7.1 GM/dL (10.7-15.3); MCH 25.3 pg (25.7-33.7); MCHC 31.2 g/dl (32.0-36.0); MEAN CELL VOLUME 81.2 fl (80-96); MONO % 7.2 % (3.8-10.2); NEUT % 84.1 % (42.8-82.8); PLATELET COUNT 412 10^3/uL (134-434); RBC 2.82 M/mm3 (3.60-5.2); RDW 17.9 % (11.6-15.6); RETICULOCYTES 3.38 % (0.5-1.5); WHITE BLOOD COUNT 15.5 K/mm3 (4.0-10.0)
[2021-11-03] MEDS: PANTOPRAZOLE SODIUM 40 MG VIAL IVPUSH SCH (09:33)
[2021-11-03] MEDS: levETIRAcetam 500 MG/5 ML INJECTION VIAL IVPB SCH ×2 (09:33→23:00)
[2021-11-03 09:34] LABS: IRON SERUM 21 ug/dL (50-175)
[2021-11-03 09:35] LABS: TOTAL IRON BINDING CAPACITY 196 ug/dL (250-450)
[2021-11-03] MEDS: FUROSEMIDE 40 MG/4 ML INJECTABLE VIAL IVPUSH SCH (09:35)
[2021-11-03] MEDS: BACITRACIN 15 GM TUBE TOPICAL OINTMENT TP SCH (10:30)
[2021-11-03] MEDS: TRIAMCINOLONE ACET 0.1% CREAM 15 GM TUBE TP SCH ×2 (10:31→23:00)
[2021-11-03] MEDS: AMINO ACIDS 4.25%/D5W 1,000 ML IV SCH (10:32)
[2021-11-03] MEDS ORDERED: IRON SUCROSE INJECTION 300 MG in SODIUM CHLORIDE 235 ML IVPB ONE (11:00)
[2021-11-03] MEDS ORDERED: ACETAMINOPHEN 1000 MG/100 ML BAG IVPB PRN (16:10)
[2021-11-03] MEDS ORDERED: FUROSEMIDE 40 MG/4 ML INJECTABLE VIAL IVPUSH ONE (18:45)
[2021-11-03 23:56] LABS: HEMOGLOBIN 8.9 GM/dL (10.7-15.3); MCH 27.7 pg (25.7-33.7); MEAN CELL VOLUME 83.9 fl (80-96); MEAN PLT VOLUME 6.9 fl (7.5-11.1); PLATELET COUNT 325 10^3/uL (134-434); RBC 3.22 M/mm3 (3.60-5.2); WHITE BLOOD COUNT 15.8 K/mm3 (4.0-10.0)
[2021-11-04 00:16] LABS: ALBUMIN 2.3 g/dl (3.4-5.0); CALCIUM 7.8 mg/dL (8.5-10.1); MAGNESIUM 2.6 mg/dL (1.8-2.4)
[2021-11-04 00:19] LABS: CREATININE 1.7 mg/dL (0.55-1.3)
[2021-11-04 00:21] LABS: BILIRUBIN,TOTAL 0.8 mg/dL (0.2-1); TOT PROT 6.6 g/dl (6.4-8.2)
[2021-11-04] MEDS: ALBUTEROL SO4 2.5/IPRATROPIUM 0.5 INH SOL 3 ML VIAL.NEB. NEB SCH ×4 (07:45→20:00)
[2021-11-04] MEDS: AMINO ACIDS/PROTEIN HYDROLYS 30 ML LIQUID.PKT GT SCH (09:50)
[2021-11-04 09:53] LABS: HEMATOCRIT 26.8 % (32.4-45.2); HEMOGLOBIN 8.7 GM/dL (10.7-15.3); MCH 27.5 pg (25.7-33.7); MCHC 32.4 g/dl (32.0-36.0); MEAN CELL VOLUME 84.9 fl (80-96); MEAN PLT VOLUME 7.2 fl (7.5-11.1); PLATELET COUNT 343 10^3/uL (134-434); RBC 3.16 M/mm3 (3.60-5.2); RDW 18.3 % (11.6-15.6)
[2021-11-04 10:29] LABS: ALBUMIN 2.4 g/dl (3.4-5.0); BLOOD UREA NITROGEN 65.1 mg/dL (7-18); CALCIUM 8.3 mg/dL (8.5-10.1)
[2021-11-04 10:30] LABS: MAGNESIUM 2.5 mg/dL (1.8-2.4)
[2021-11-04 10:32] LABS: CREATININE 1.6 mg/dL (0.55-1.3)
[2021-11-04 10:34] LABS: BILIRUBIN,TOTAL 0.7 mg/dL (0.2-1); TOT PROT 6.9 g/dl (6.4-8.2)
[2021-11-04] MEDS ORDERED: IRON SUCROSE INJECTION 200 MG in SODIUM CHLORIDE 90 ML IVPB ONE (11:15)
[2021-11-04] MEDS: FUROSEMIDE 40 MG/4 ML INJECTABLE VIAL IVPUSH SCH (11:52)
[2021-11-04] MEDS: PANTOPRAZOLE SODIUM 40 MG VIAL IVPUSH SCH (11:55)
[2021-11-04] MEDS: levETIRAcetam 500 MG/5 ML INJECTION VIAL IVPB SCH ×2 (12:04→21:23)
[2021-11-04] MEDS: AMINO ACIDS 4.25%/D5W 1,000 ML IV SCH (12:37)
[2021-11-04] MEDS: BACITRACIN 15 GM TUBE TOPICAL OINTMENT TP SCH (12:38)
[2021-11-04] MEDS: TRIAMCINOLONE ACET 0.1% CREAM 15 GM TUBE TP SCH ×2 (12:38→21:23)
[2021-11-05] MEDS: ALBUTEROL SO4 2.5/IPRATROPIUM 0.5 INH SOL 3 ML VIAL.NEB. NEB SCH ×4 (08:33→20:00)
[2021-11-05] MEDS: PANTOPRAZOLE SODIUM 40 MG VIAL IVPUSH SCH (10:40)
[2021-11-05] MEDS: AMINO ACIDS 4.25%/D5W 1,000 ML IV SCH (10:48)
[2021-11-05] MEDS: AMINO ACIDS/PROTEIN HYDROLYS 30 ML LIQUID.PKT GT SCH (10:48)
[2021-11-05] MEDS: BACITRACIN 15 GM TUBE TOPICAL OINTMENT TP SCH (10:49)
[2021-11-05] MEDS: TRIAMCINOLONE ACET 0.1% CREAM 15 GM TUBE TP SCH (10:49)
[2021-11-05] MEDS: levETIRAcetam 500 MG/5 ML INJECTION VIAL IVPB SCH ×2 (10:57→22:58)
[2021-11-05 12:44] LABS: HEMATOCRIT 23.6 % (32.4-45.2); HEMOGLOBIN 7.8 GM/dL (10.7-15.3); MEAN PLT VOLUME 7.1 fl (7.5-11.1); PLATELET COUNT 295 10^3/uL (134-434); RBC 2.78 M/mm3 (3.60-5.2); RDW 18.3 % (11.6-15.6); WHITE BLOOD COUNT 12.5 K/mm3 (4.0-10.0)
[2021-11-05 13:07] LABS: ALBUMIN 2.2 g/dl (3.4-5.0); BLOOD UREA NITROGEN 54.9 mg/dL (7-18)
[2021-11-05 13:08] LABS: CALCIUM 8.3 mg/dL (8.5-10.1)
[2021-11-05 13:10] LABS: CREATININE 1.3 mg/dL (0.55-1.3); MAGNESIUM 2.2 mg/dL (1.8-2.4)
[2021-11-05 13:12] LABS: BILIRUBIN,TOTAL 0.4 mg/dL (0.2-1); TOT PROT 6.4 g/dl (6.4-8.2)
[2021-11-05] MEDS ORDERED: POTASSIUM CHLORIDE ORAL LIQUID 20 MEQ/15 ML PEG ONE (13:19)
[2021-11-05 13:22] LABS: ANISOCYTOSIS 0; HELMET CELLS 0; HOWELL-JOLLY BODIES 0; MACROCYTOSIS 0; OVALOCYTE 0; PLATELET ESTIMATE NORMAL; ROULEAU 0; SICKELED CELLS 0; TARGET CELLS 0; TEAR DROP CELLS 0; TOXIC GRANULATION 0
[2021-11-05] MEDS: KCL 10 MEQ IVPB 10 MEQ/100 ML INFUS.BAG IVPB SCH ×3 (13:40→18:19)
[2021-11-06] MEDS: ALBUTEROL SO4 2.5/IPRATROPIUM 0.5 INH SOL 3 ML VIAL.NEB. NEB SCH ×4 (07:47→20:27)
[2021-11-06 09:41] LABS: HEMATOCRIT 28.1 % (32.4-45.2); HEMOGLOBIN 9.1 GM/dL (10.7-15.3); MCH 28.4 pg (25.7-33.7); MCHC 32.4 g/dl (32.0-36.0); MEAN CELL VOLUME 87.6 fl (80-96); MEAN PLT VOLUME 7.3 fl (7.5-11.1); PLATELET COUNT 284 10^3/uL (134-434); RDW 17.8 % (11.6-15.6); WHITE BLOOD COUNT 10.2 K/mm3 (4.0-10.0)
[2021-11-06 10:17] LABS: BLOOD UREA NITROGEN 49.9 mg/dL (7-18)
[2021-11-06 10:18] LABS: ALBUMIN 2.2 g/dl (3.4-5.0); MAGNESIUM 2.3 mg/dL (1.8-2.4)
[2021-11-06 10:21] LABS: CREATININE 1.1 mg/dL (0.55-1.3); PHOSPHOROUS 1.9 mg/dL (2.5-4.9)
[2021-11-06 10:22] LABS: BILIRUBIN,TOTAL 0.6 mg/dL (0.2-1); TOT PROT 6.7 g/dl (6.4-8.2)
[2021-11-06 10:31] LABS: ANISOCYTOSIS 1+; MACROCYTOSIS 0; PLATELET ESTIMATE NORMAL
[2021-11-06] MEDS: PANTOPRAZOLE SODIUM 40 MG VIAL IVPUSH SCH (10:31)
[2021-11-06] MEDS: BACITRACIN 15 GM TUBE TOPICAL OINTMENT TP SCH (10:32)
[2021-11-06] MEDS: AMINO ACIDS 4.25%/D5W 1,000 ML IV SCH (10:32)
[2021-11-06] MEDS: levETIRAcetam 500 MG/5 ML INJECTION VIAL IVPB SCH ×2 (10:36→21:24)
[2021-11-07] MEDS: ALBUTEROL SO4 2.5/IPRATROPIUM 0.5 INH SOL 3 ML VIAL.NEB. NEB SCH (08:00)
[2021-11-07] MEDS: BACITRACIN 15 GM TUBE TOPICAL OINTMENT TP SCH (09:56)
[2021-11-07] MEDS: PANTOPRAZOLE SODIUM 40 MG VIAL IVPUSH SCH (09:57)
[2021-11-07] MEDS: levETIRAcetam 500 MG/5 ML INJECTION VIAL IVPB SCH ×2 (09:57→21:55)
[2021-11-07 12:58] LABS: BASO % 0.4 % (0-2.0); EOS % 2.7 % (0-4.5); HEMATOCRIT 28.6 % (32.4-45.2); HEMOGLOBIN 9.2 GM/dL (10.7-15.3); LYMPH % 10.9 % (8-40); MCH 28.5 pg (25.7-33.7); MCHC 32.3 g/dl (32.0-36.0); MEAN CELL VOLUME 88.4 fl (80-96); MEAN PLT VOLUME 7.1 fl (7.5-11.1); MONO % 6.4 % (3.8-10.2); NEUT % 79.6 % (42.8-82.8); PLATELET COUNT 296 10^3/uL (134-434); RBC 3.23 M/mm3 (3.60-5.2); RDW 18.2 % (11.6-15.6); WHITE BLOOD COUNT 10.4 K/mm3 (4.0-10.0)
[2021-11-07 13:20] LABS: CALCIUM 8.3 mg/dL (8.5-10.1)
[2021-11-07 13:21] LABS: ALBUMIN 2.2 g/dl (3.4-5.0); BLOOD UREA NITROGEN 42.3 mg/dL (7-18); MAGNESIUM 2.3 mg/dL (1.8-2.4)
[2021-11-07 13:25] LABS: BILIRUBIN,TOTAL 0.5 mg/dL (0.2-1); TOT PROT 6.4 g/dl (6.4-8.2)
[2021-11-07 14:16] VITALS: BMI 31.7
[2021-11-07] MEDS: AMINO ACIDS/PROTEIN HYDROLYS 30 ML LIQUID.PKT PEG SCH (17:31)
[2021-11-08] MEDS: AMINO ACIDS/PROTEIN HYDROLYS 30 ML LIQUID.PKT PEG SCH ×2 (08:13→16:45)
[2021-11-08 09:27] LABS: CALCIUM 7.9 mg/dL (8.5-10.1)
[2021-11-08 09:28] LABS: ALBUMIN 2.1 g/dl (3.4-5.0)
[2021-11-08 09:29] LABS: BLOOD UREA NITROGEN 45.3 mg/dL (7-18)
[2021-11-08 09:32] LABS: BILIRUBIN,TOTAL 0.4 mg/dL (0.2-1); TOT PROT 6.3 g/dl (6.4-8.2)
[2021-11-08 09:34] LABS: BASO % 0.5 % (0-2.0); EOS % 2.9 % (0-4.5); HEMATOCRIT 27.7 % (32.4-45.2); LYMPH % 11.1 % (8-40); MCH 28.9 pg (25.7-33.7); MCHC 32.5 g/dl (32.0-36.0); MEAN CELL VOLUME 88.8 fl (80-96); MEAN PLT VOLUME 7.2 fl (7.5-11.1); MONO % 6.8 % (3.8-10.2); NEUT % 78.7 % (42.8-82.8); PLATELET COUNT 271 10^3/uL (134-434); RBC 3.12 M/mm3 (3.60-5.2); RDW 18.8 % (11.6-15.6); WHITE BLOOD COUNT 10.1 K/mm3 (4.0-10.0)
[2021-11-08] MEDS ORDERED: levETIRAcetam 500 MG/5 ML ORAL SOLUTION (UNIT-DOSE CUPS) PEG SCH (10:00)
[2021-11-08] MEDS ORDERED: FAMOTIDINE 40 MG/5 ML ORAL SUSPENSION PEG SCH (10:00)
[2021-11-08] MEDS ORDERED: PANTOPRAZOLE 40 MG TABLET PO SCH (10:00)
[2021-11-08] MEDS ORDERED: levETIRAcetam 500 MG TABLET (FP) PO SCH (10:00)
[2021-11-08] MEDS ORDERED: MULTIVIT-MINERALS ORAL LIQUID PEG SCH (10:00)
[2021-11-08] MEDS: BACITRACIN 15 GM TUBE TOPICAL OINTMENT TP SCH (10:36)
[2021-11-08 18:26] VITALS: BP 135/70; PULSE 78; TEMP 99.1
== END 2021-11-08 18:56 | DRG 253 ==
LOC: JER 18:29 → JERBED 23:36 → J5S 11-02 18:54
PROVIDERS: ADMIT Hospitalist; ATTEND Family Medicine
PROC: 30233N1 Transfusion of Nonautologous Red Blood Cells into Peripheral Vein, Percutaneous Approach (ICD-10-PCS; principal; 2021-11-01)
PROC: 5A1955Z Respiratory Ventilation, Greater than 96 Consecutive Hours (ICD-10-PCS; 2021-11-01)
DX: K92.2 Gastrointestinal hemorrhage, unspecified (principal); J44.9 Chronic obstructive pulmonary disease, unspecified; I48.91 Unspecified atrial fibrillation; R53.2 Functional quadriplegia; J90 Pleural effusion, not elsewhere classified; J96.10 Chronic respiratory failure, unspecified whether with hypoxia or hypercapnia; E11.9 Type 2 diabetes mellitus without complications; G40.909 Epilepsy, unspecified, not intractable, without status epilepticus; E66.9 Obesity, unspecified; Z68.32 Body mass index [BMI] 32.0-32.9, adult; M48.54XD Collapsed vertebra, not elsewhere classified, thoracic region, subsequent encounter for fracture with routine healing; E78.5 Hyperlipidemia, unspecified; E87.79 Other fluid overload; K83.8 Other specified diseases of biliary tract; D72.829 Elevated white blood cell count, unspecified; I11.0 Hypertensive heart disease with heart failure; I50.9 Heart failure, unspecified; D50.0 Iron deficiency anemia secondary to blood loss (chronic); L89.152 Pressure ulcer of sacral region, stage 2; L89.522 Pressure ulcer of left ankle, stage 2; J98.11 Atelectasis; Z93.0 Tracheostomy status; Z86.73 Personal history of transient ischemic attack (TIA), and cerebral infarction without residual deficits; Z93.1 Gastrostomy status
CPT/HCPCS: 36415; 36430; 36511; 71045-TC-FY; 74018-TC-FY; 74174-TC; 76775-TC; 80048; 80053; 81003; 82272; 82784; 82803; 83516; 83540; 83550; 83605; 83690; 83735; 84100; 84155; 84165; 84484; 85025; 85027; 85045; 85610; 85730; 86334; 86850; 86900; 86901; 86922; 87040; 87086; 93005; 93010; 94002; 94640; 99285-25; C9803; J1756; P9038; P9058; Q9967; U0003; U0005

== ENCOUNTER 2021-12-18 13:19 | Inpatient (IN) | payer OTHER ==
[2021-12-18] MEDS ORDERED: VANCOMYCIN 1 GM in D5W (PRE-DOCKED) 1,000 MG/250 ML IVPB ONE (16:41)
[2021-12-18] MEDS ORDERED: VANCOMYCIN 1 GRAM (PRE-DOCKED) 1,000 MG/250 ML BAG IVPB ONE (16:48)
[2021-12-18 17:01] LABS: INR 1.11 (0.83-1.09); PROTHROMBIN TIME (PATIENT) 12.8 SEC (9.7-13.0)
[2021-12-18 17:04] LABS: ACTIVATED PTT 27.1 SECONDS (25.2-36.5)
[2021-12-18 17:15] LABS: BASO % 0.3 % (0-2.0); EOS % 1.5 % (0-4.5); HEMATOCRIT 26.6 % (32.4-45.2); HEMOGLOBIN 8.7 GM/dL (10.7-15.3); LYMPH % 11.3 % (8-40); MCH 28.6 pg (25.7-33.7); MCHC 32.8 g/dl (32.0-36.0); MEAN CELL VOLUME 87.3 fl (80-96); MEAN PLT VOLUME 7.4 fl (7.5-11.1); MONO % 7.3 % (3.8-10.2); NEUT % 79.6 % (42.8-82.8); PLATELET COUNT 394 10^3/uL (134-434); RBC 3.04 M/mm3 (3.60-5.2); RDW 19.2 % (11.6-15.6)
[2021-12-18 17:17] LABS: ALBUMIN 2.2 g/dl (3.4-5.0); BLOOD UREA NITROGEN 42.8 mg/dL (7-18); CALCIUM 8.8 mg/dL (8.5-10.1)
[2021-12-18 17:19] LABS: MAGNESIUM 2.4 mg/dL (1.8-2.4)
[2021-12-18 17:20] LABS: CREATININE 1.1 mg/dL (0.55-1.3)
[2021-12-18 17:22] LABS: BILIRUBIN,TOTAL 0.5 mg/dL (0.2-1); TOT PROT 8.1 g/dl (6.4-8.2)
[2021-12-18 17:28] LABS: VENOUS BASE EXCESS 16.8 mmol/L (-2-2); VENOUS O2 SATURATION 78.4 % (70-80); VENOUS PCO2 61.6 mmHg (38-52); VENOUS PH 7.458 (7.310-7.410)
[2021-12-18] MEDS ORDERED: LACTATED RINGERS SOLUTION 1000 ML INFUS.BAG IV ONE (17:41)
[2021-12-18] MEDS ORDERED: PIPERACILLIN/TAZOB 4.5 GM 4.5 GM in DEXTROSE 5%-WATER 100 ML IVPB ONE (18:37)
[2021-12-18] MEDS ORDERED: PIPERACILLIN/TAZOB 4.5 GM 4.5 GM/100 ML BAG IVPB ONE (19:30)
[2021-12-18] MEDS ORDERED: PANTOPRAZOLE SODIUM 40 MG VIAL IVPUSH ONE (19:46)
[2021-12-18] MEDS ORDERED: FUROSEMIDE 20 MG TABLET (FP) GT SCH ×2 (22:00)
[2021-12-18] MEDS ORDERED: DIGOXIN 0.5 MG/2 ML AMPUL IVPUSH ONE (23:15)
[2021-12-18] MEDS ORDERED: ATORVASTATIN CA 80 MG TABLET (FP) ONE (23:25)
[2021-12-18] MEDS ORDERED: DIGOXIN 0.5 MG/2 ML AMPUL ONE (23:25)
[2021-12-18] MEDS ORDERED: ACETAMINOPHEN INJECTION 100 ML IVPB ONE (23:53)
[2021-12-19] MEDS ORDERED: ACETAMINOPHEN 1000 MG/100 ML BAG IVPB ONE (00:03)
[2021-12-19] MEDS ORDERED: dilTIAZem HCL 125 MG/25 ML - 25 ML VIAL ONE (00:29)
[2021-12-19] MEDS ORDERED: dilTIAZem HCL 50 MG/10 ML - 10 ML VIAL IVPUSH ONE (00:29)
[2021-12-19 00:36] LABS: BASO % 0.4 % (0-2.0); EOS % 0.5 % (0-4.5); HEMATOCRIT 28.3 % (32.4-45.2); HEMOGLOBIN 9.2 GM/dL (10.7-15.3); LYMPH % 9.6 % (8-40); MCH 28.2 pg (25.7-33.7); MCHC 32.6 g/dl (32.0-36.0); MEAN CELL VOLUME 86.4 fl (80-96); MEAN PLT VOLUME 7.2 fl (7.5-11.1); MONO % 7.4 % (3.8-10.2); NEUT % 82.1 % (42.8-82.8); PLATELET COUNT 452 10^3/uL (134-434); RBC 3.27 M/mm3 (3.60-5.2); RDW 18.9 % (11.6-15.6); WHITE BLOOD COUNT 13.9 K/mm3 (4.0-10.0)
[2021-12-19] MEDS: TRIAMCINOLONE ACET 0.1% 60 ML LOTION TP SCH ×3 (00:40→21:41)
[2021-12-19] MEDS: ATORVASTATIN CA 80 MG TABLET (FP) GT SCH ×2 (00:40→21:43)
[2021-12-19] MEDS: levETIRAcetam 500 MG/5 ML ORAL SOLUTION (UNIT-DOSE CUPS) GT SCH ×2 (00:40→11:57)
[2021-12-19] MEDS: DOCUSATE NA 100 MG/10 ML UNIT-DOSE CUPS GT SCH ×2 (00:40→21:43)
[2021-12-19] MEDS ORDERED: PIPERACILLIN/TAZOB 3.375 GM 3.375 GM/50 ML BAG IVPB ONE (02:33)
[2021-12-19] MEDS: PIPERACILLIN/TAZOB 3.375 GM 3.375 GM in DEXTROSE 5%-WATER - 50 ML IVPB SCH ×4 (03:01→17:08)
[2021-12-19] MEDS ORDERED: VANCOMYCIN 1 GM in D5W (PRE-DOCKED) 1,000 MG/250 ML IVPB SCH (05:00)
[2021-12-19 09:37] LABS: BASO % 0.4 % (0-2.0); EOS % 0.8 % (0-4.5); HEMATOCRIT 27.5 % (32.4-45.2); HEMOGLOBIN 8.8 GM/dL (10.7-15.3); LYMPH % 11.5 % (8-40); MCH 27.9 pg (25.7-33.7); MCHC 32.1 g/dl (32.0-36.0); MEAN CELL VOLUME 86.8 fl (80-96); MEAN PLT VOLUME 7.5 fl (7.5-11.1); MONO % 6.5 % (3.8-10.2); NEUT % 80.8 % (42.8-82.8); PLATELET COUNT 420 10^3/uL (134-434); RBC 3.17 M/mm3 (3.60-5.2); RDW 19.5 % (11.6-15.6); WHITE BLOOD COUNT 12.2 K/mm3 (4.0-10.0)
[2021-12-19 10:03] LABS: BLOOD UREA NITROGEN 57.3 mg/dL (7-18); CALCIUM 9.1 mg/dL (8.5-10.1)
[2021-12-19 10:06] LABS: CREATININE 1.8 mg/dL (0.55-1.3)
[2021-12-19] MEDS ORDERED: PIPERACILLIN/TAZOBACTAM 3.375 GM VIAL IVPB ONE ×2 (10:59→16:52)
[2021-12-19] MEDS ORDERED: DEXTROSE 5%-WATER - 50 ML IVPB ONE ×2 (10:59→16:52)
[2021-12-19] MEDS: FERROUS SO4 300 MG/5 ML ORAL SOLN UNIT DOSE CUPS GT SCH (11:10)
[2021-12-19] MEDS: MULTIVIT-MINERALS ORAL LIQUID GT SCH (11:57)
[2021-12-19] MEDS: LACTOBACILLUS ACIDOPHILUS 1 TABLET GT SCH (11:57)
[2021-12-19] MEDS: FUROSEMIDE 40 MG/5 ML UNIT-DOSE CUP GT SCH ×2 (11:57→15:00)
[2021-12-19] MEDS: ZINC SULFATE 220 MG CAPSULE (FP) GT SCH (11:57)
[2021-12-19] MEDS: ASCORBIC ACID 500 MG TABLET (FP) GT SCH (11:58)
[2021-12-19] MEDS: FAMOTIDINE 40 MG/5 ML ORAL SUSPENSION PEG SCH (11:58)
[2021-12-19 14:29] LABS: BASO % 0.5 % (0-2.0); HEMATOCRIT 26.7 % (32.4-45.2); HEMOGLOBIN 8.7 GM/dL (10.7-15.3); LYMPH % 11.6 % (8-40); MCH 28.2 pg (25.7-33.7); MCHC 32.6 g/dl (32.0-36.0); MEAN CELL VOLUME 86.4 fl (80-96); MEAN PLT VOLUME 7.2 fl (7.5-11.1); MONO % 15.5 % (3.8-10.2); NEUT % 71.4 % (42.8-82.8); PLATELET COUNT 397 10^3/uL (134-434); RBC 3.09 M/mm3 (3.60-5.2); RDW 19.5 % (11.6-15.6); WHITE BLOOD COUNT 15.6 K/mm3 (4.0-10.0)
[2021-12-19] MEDS: VANCOMYCIN 1 GM in D5W (PRE-DOCKED) 1,000 MG/250 ML IVPB SCH (14:59)
[2021-12-19] MEDS: SODIUM CHLORIDE 1,000 ML IV SCH (17:05)
[2021-12-19 18:55] LABS: BASO % 0.6 % (0-2.0); HEMOGLOBIN 8.8 GM/dL (10.7-15.3); LYMPH % 10.7 % (8-40); MCH 28.4 pg (25.7-33.7); MCHC 32.7 g/dl (32.0-36.0); MEAN CELL VOLUME 86.7 fl (80-96); MEAN PLT VOLUME 7.4 fl (7.5-11.1); MONO % 8.7 % (3.8-10.2); PLATELET COUNT 397 10^3/uL (134-434); RBC 3.11 M/mm3 (3.60-5.2); RDW 19.5 % (11.6-15.6); WHITE BLOOD COUNT 16.1 K/mm3 (4.0-10.0)
[2021-12-19] MEDS: levETIRAcetam 500 MG/5 ML INJECTION VIAL IVPB SCH ×2 (20:59→21:43)
[2021-12-20] MEDS: MIDODRINE HCL 5 MG TABLET GT SCH (10:24)
[2021-12-20] MEDS: FERROUS SO4 300 MG/5 ML ORAL SOLN UNIT DOSE CUPS GT SCH (10:24)
[2021-12-20] MEDS: MULTIVIT-MINERALS ORAL LIQUID GT SCH (10:24)
[2021-12-20] MEDS: LACTOBACILLUS ACIDOPHILUS 1 TABLET GT SCH (10:24)
[2021-12-20] MEDS: FAMOTIDINE 40 MG/5 ML ORAL SUSPENSION PEG SCH (10:25)
[2021-12-20] MEDS: levETIRAcetam 500 MG/5 ML INJECTION VIAL IVPB SCH ×2 (10:25→21:46)
[2021-12-20] MEDS: ASCORBIC ACID 500 MG TABLET (FP) GT SCH (10:25)
[2021-12-20] MEDS: ZINC SULFATE 220 MG CAPSULE (FP) GT SCH (10:25)
[2021-12-20] MEDS: TRIAMCINOLONE ACET 0.1% 60 ML LOTION TP SCH ×2 (10:26→22:39)
[2021-12-20 12:54] LABS: BASO % 0.7 % (0-2.0); EOS % 1.1 % (0-4.5); LYMPH % 14.3 % (8-40); MCH 28.6 pg (25.7-33.7); MCHC 33.2 g/dl (32.0-36.0); MEAN CELL VOLUME 85.9 fl (80-96); MEAN PLT VOLUME 7.3 fl (7.5-11.1); MONO % 7.5 % (3.8-10.2); NEUT % 76.4 % (42.8-82.8); PLATELET COUNT 390 10^3/uL (134-434); RBC 2.79 M/mm3 (3.60-5.2); RDW 19.3 % (11.6-15.6); WHITE BLOOD COUNT 13.2 K/mm3 (4.0-10.0)
[2021-12-20 13:18] LABS: BILIRUBIN,TOTAL 0.7 mg/dL (0.2-1); TOT PROT 7.1 g/dl (6.4-8.2)
[2021-12-20] MEDS: KCL 10 MEQ IVPB 10 MEQ/100 ML INFUS.BAG IVPB SCH ×2 (14:54→17:17)
[2021-12-20] MEDS: AMINO ACIDS 4.25%/D5W 1,000 ML IV SCH (18:52)
[2021-12-21] MEDS: DOCUSATE NA 100 MG/10 ML UNIT-DOSE CUPS GT SCH ×2 (03:11→21:12)
[2021-12-21] MEDS: ATORVASTATIN CA 80 MG TABLET (FP) GT SCH ×2 (03:11→21:13)
[2021-12-21 08:29] LABS: BASO % 0.5 % (0-2.0); EOS % 1.8 % (0-4.5); HEMATOCRIT 22.5 % (32.4-45.2); HEMOGLOBIN 7.4 GM/dL (10.7-15.3); LYMPH % 12.2 % (8-40); MCH 28.2 pg (25.7-33.7); MCHC 32.8 g/dl (32.0-36.0); MEAN PLT VOLUME 7.2 fl (7.5-11.1); MONO % 7.2 % (3.8-10.2); NEUT % 78.3 % (42.8-82.8); PLATELET COUNT 350 10^3/uL (134-434); RBC 2.61 M/mm3 (3.60-5.2); RDW 19.8 % (11.6-15.6); WHITE BLOOD COUNT 12.3 K/mm3 (4.0-10.0)
[2021-12-21 08:35] LABS: CHLORIDE 95 mmol/L (98-107); SODIUM 142 mmol/L (136-145)
[2021-12-21 08:39] LABS: CALCIUM 7.6 mg/dL (8.5-10.1)
[2021-12-21 08:40] LABS: ALBUMIN 1.8 g/dl (3.4-5.0); BLOOD UREA NITROGEN 63.6 mg/dL (7-18); CO2 38 mmol/L (21-32); GLUCOSE,RANDOM 169 mg/dL (74-106); MAGNESIUM 2.4 mg/dL (1.8-2.4)
[2021-12-21 08:43] LABS: CREATININE 1.9 mg/dL (0.55-1.3); PHOSPHOROUS 2.8 mg/dL (2.5-4.9); SGOT/AST 31 U/L (15-37); SGPT/ALT 28 U/L (13-61)
[2021-12-21 08:44] LABS: TOT PROT 6.6 g/dl (6.4-8.2)
[2021-12-21 08:45] LABS: BILIRUBIN,TOTAL 0.6 mg/dL (0.2-1)
[2021-12-21 08:46] LABS: ALK PHOS 75 U/L (45-117)
[2021-12-21 08:48] LABS: ANION GAP 10 MMOL/L (8-16)
[2021-12-21] MEDS ORDERED: MAGNESIUM SULF 50% (8.12 MEQ/2 ML-1 GM VIAL) IVPB ONE (09:10)
[2021-12-21] MEDS: KCL 10 MEQ IVPB 10 MEQ/100 ML INFUS.BAG IVPB SCH ×3 (09:44→12:50)
[2021-12-21] MEDS: MULTIVIT-MINERALS ORAL LIQUID GT SCH (09:45)
[2021-12-21] MEDS: ZINC SULFATE 220 MG CAPSULE (FP) GT SCH (09:45)
[2021-12-21] MEDS: MIDODRINE HCL 5 MG TABLET GT SCH (09:45)
[2021-12-21] MEDS: ASCORBIC ACID 500 MG TABLET (FP) GT SCH (09:45)
[2021-12-21] MEDS: FAMOTIDINE 40 MG/5 ML ORAL SUSPENSION PEG SCH (09:45)
[2021-12-21] MEDS: LACTOBACILLUS ACIDOPHILUS 1 TABLET GT SCH (09:45)
[2021-12-21] MEDS: FERROUS SO4 300 MG/5 ML ORAL SOLN UNIT DOSE CUPS GT SCH (09:45)
[2021-12-21] MEDS ORDERED: IRON SUCROSE INJECTION 200 MG in SODIUM CHLORIDE 90 ML IVPB ONE (10:00)
[2021-12-21] MEDS: TRIAMCINOLONE ACET 0.1% 60 ML LOTION TP SCH ×2 (11:57→21:11)
[2021-12-21] MEDS: levETIRAcetam 500 MG/5 ML INJECTION VIAL IVPB SCH ×2 (11:57→21:12)
[2021-12-21] MEDS: AMINO ACIDS 4.25%/D5W 1,000 ML IV SCH ×3 (12:53→23:55)
[2021-12-22] MEDS: AMINO ACIDS 4.25%/D5W 1,000 ML IV SCH ×3 (05:56→16:47)
[2021-12-22] MEDS: FUROSEMIDE 40 MG/5 ML UNIT-DOSE CUP GT SCH ×2 (05:57→13:34)
[2021-12-22] MEDS: LACTOBACILLUS ACIDOPHILUS 1 TABLET GT SCH (09:15)
[2021-12-22] MEDS: FAMOTIDINE 40 MG/5 ML ORAL SUSPENSION PEG SCH (09:15)
[2021-12-22] MEDS: ZINC SULFATE 220 MG CAPSULE (FP) GT SCH (09:15)
[2021-12-22] MEDS: FERROUS SO4 300 MG/5 ML ORAL SOLN UNIT DOSE CUPS GT SCH (09:15)
[2021-12-22] MEDS: MULTIVIT-MINERALS ORAL LIQUID GT SCH (09:15)
[2021-12-22] MEDS: ASCORBIC ACID 500 MG TABLET (FP) GT SCH (09:15)
[2021-12-22] MEDS: MIDODRINE HCL 5 MG TABLET GT SCH (09:16)
[2021-12-22] MEDS: TRIAMCINOLONE ACET 0.1% 60 ML LOTION TP SCH ×2 (10:00→21:35)
[2021-12-22] MEDS: levETIRAcetam 500 MG/5 ML INJECTION VIAL IVPB SCH ×2 (10:01→21:35)
[2021-12-22 10:23] LABS: SODIUM 138 mmol/L (136-145)
[2021-12-22 10:24] LABS: HEMATOCRIT 20.6 % (32.4-45.2); MCH 28.3 pg (25.7-33.7); MCHC 32.8 g/dl (32.0-36.0); MEAN CELL VOLUME 86.2 fl (80-96); MEAN PLT VOLUME 7.8 fl (7.5-11.1); PLATELET COUNT 316 10^3/uL (134-434); RBC 2.39 M/mm3 (3.60-5.2); RDW 19.4 % (11.6-15.6); WHITE BLOOD COUNT 13.8 K/mm3 (4.0-10.0)
[2021-12-22 10:25] LABS: BLOOD UREA NITROGEN 66.2 mg/dL (7-18); CALCIUM 7.5 mg/dL (8.5-10.1); CO2 32 mmol/L (21-32); GLUCOSE,RANDOM 145 mg/dL (74-106); MAGNESIUM 2.3 mg/dL (1.8-2.4)
[2021-12-22 10:29] LABS: CREATININE 1.4 mg/dL (0.55-1.3)
[2021-12-22 10:37] LABS: HEMOGLOBIN 6.8 GM/dL (10.7-15.3)
[2021-12-22 11:01] LABS: ANION GAP 11 MMOL/L (8-16); CHLORIDE 96 mmol/L (98-107)
[2021-12-22] MEDS: KCL 10 MEQ IVPB 10 MEQ/100 ML INFUS.BAG IVPB SCH ×3 (13:36→20:18)
[2021-12-22] MEDS ORDERED: KCL 10 MEQ IVPB 10 MEQ/100 ML INFUS.BAG IVPB SCH (18:30)
[2021-12-22] MEDS ORDERED: FUROSEMIDE 40 MG/4 ML INJECTABLE VIAL IVPUSH ONE (20:15)
[2021-12-22] MEDS: PANTOPRAZOLE SODIUM 40 MG VIAL IVPUSH SCH (21:35)
[2021-12-22] MEDS: ATORVASTATIN CA 80 MG TABLET (FP) GT SCH (21:35)
[2021-12-22] MEDS: DOCUSATE NA 100 MG/10 ML UNIT-DOSE CUPS GT SCH (21:35)
[2021-12-23] MEDS: AMINO ACIDS 4.25%/D5W 1,000 ML IV SCH ×3 (06:06→15:55)
[2021-12-23] MEDS: FUROSEMIDE 40 MG/5 ML UNIT-DOSE CUP GT SCH ×2 (06:06→13:49)
[2021-12-23] MEDS: ASCORBIC ACID 500 MG TABLET (FP) GT SCH (10:20)
[2021-12-23] MEDS: ZINC SULFATE 220 MG CAPSULE (FP) GT SCH (10:20)
[2021-12-23] MEDS: LACTOBACILLUS ACIDOPHILUS 1 TABLET GT SCH (10:20)
[2021-12-23] MEDS: MIDODRINE HCL 5 MG TABLET GT SCH ×2 (10:20→10:47)
[2021-12-23] MEDS: levETIRAcetam 500 MG/5 ML INJECTION VIAL IVPB SCH ×2 (10:21→21:16)
[2021-12-23] MEDS: PANTOPRAZOLE SODIUM 40 MG VIAL IVPUSH SCH ×2 (10:22→21:16)
[2021-12-23] MEDS: MULTIVIT-MINERALS ORAL LIQUID GT SCH (10:24)
[2021-12-23] MEDS: TRIAMCINOLONE ACET 0.1% 60 ML LOTION TP SCH ×2 (10:25→21:11)
[2021-12-23 14:01] LABS: HEMOGLOBIN 9.3 GM/dL (10.7-15.3); MCH 29.4 pg (25.7-33.7); MCHC 34.6 g/dl (32.0-36.0); MEAN CELL VOLUME 85.2 fl (80-96); MEAN PLT VOLUME 7.2 fl (7.5-11.1); PLATELET COUNT 252 10^3/uL (134-434); RBC 3.17 M/mm3 (3.60-5.2); RDW 16.3 % (11.6-15.6); WHITE BLOOD COUNT 11.3 K/mm3 (4.0-10.0)
[2021-12-23 14:16] LABS: CALCIUM 7.9 mg/dL (8.5-10.1)
[2021-12-23 14:17] LABS: BLOOD UREA NITROGEN 58.4 mg/dL (7-18); MAGNESIUM 1.8 mg/dL (1.8-2.4)
[2021-12-23 14:20] LABS: CREATININE 1.2 mg/dL (0.55-1.3)
[2021-12-23] MEDS: SILVER SULFADIAZINE 1% TOP CREAM 50 GM JAR TP SCH (14:28)
[2021-12-23 14:47] VITALS: BMI 28.8
[2021-12-23] MEDS: KCL 10 MEQ IVPB 10 MEQ/100 ML INFUS.BAG IVPB SCH ×3 (18:11→21:11)
[2021-12-23] MEDS: POTASSIUM CHLORIDE 30 MEQ in AMINO ACIDS 4.25%/D5W 1,000 ML IV SCH (19:42)
[2021-12-23] MEDS: DOCUSATE NA 100 MG/10 ML UNIT-DOSE CUPS GT SCH (21:12)
[2021-12-23] MEDS: ATORVASTATIN CA 80 MG TABLET (FP) GT SCH (21:16)
[2021-12-24] MEDS: FUROSEMIDE 40 MG/5 ML UNIT-DOSE CUP GT SCH (06:08)
[2021-12-24] MEDS: POTASSIUM CHLORIDE 30 MEQ in AMINO ACIDS 4.25%/D5W 1,000 ML IV SCH ×3 (06:38→22:01)
[2021-12-24 09:58] LABS: BASO % 0.5 % (0-2.0); EOS % 1.9 % (0-4.5); HEMATOCRIT 28.7 % (32.4-45.2); HEMOGLOBIN 9.8 GM/dL (10.7-15.3); MCH 29.7 pg (25.7-33.7); MCHC 34.1 g/dl (32.0-36.0); MEAN CELL VOLUME 87.2 fl (80-96); MEAN PLT VOLUME 7.3 fl (7.5-11.1); MONO % 7.5 % (3.8-10.2); NEUT % 76.1 % (42.8-82.8); PLATELET COUNT 262 10^3/uL (134-434); RBC 3.29 M/mm3 (3.60-5.2); RDW 16.5 % (11.6-15.6); WHITE BLOOD COUNT 8.8 K/mm3 (4.0-10.0)
[2021-12-24 10:17] LABS: BLOOD UREA NITROGEN 55.8 mg/dL (7-18); CALCIUM 7.7 mg/dL (8.5-10.1); MAGNESIUM 1.7 mg/dL (1.8-2.4)
[2021-12-24 10:20] LABS: PHOSPHOROUS 1.5 mg/dL (2.5-4.9)
[2021-12-24 10:21] LABS: CREATININE 1.1 mg/dL (0.55-1.3)
[2021-12-24] MEDS: LACTOBACILLUS ACIDOPHILUS 1 TABLET GT SCH (11:12)
[2021-12-24] MEDS: MIDODRINE HCL 5 MG TABLET GT SCH ×2 (11:12→13:19)
[2021-12-24] MEDS: ASCORBIC ACID 500 MG TABLET (FP) GT SCH (11:13)
[2021-12-24] MEDS: levETIRAcetam 500 MG/5 ML INJECTION VIAL IVPB SCH ×2 (11:13→21:52)
[2021-12-24] MEDS: ZINC SULFATE 220 MG CAPSULE (FP) GT SCH (11:13)
[2021-12-24] MEDS: PANTOPRAZOLE SODIUM 40 MG VIAL IVPUSH SCH (11:14)
[2021-12-24] MEDS: MULTIVIT-MINERALS ORAL LIQUID GT SCH (11:18)
[2021-12-24] MEDS: TRIAMCINOLONE ACET 0.1% 60 ML LOTION TP SCH ×2 (11:18→21:53)
[2021-12-24] MEDS: SILVER SULFADIAZINE 1% TOP CREAM 50 GM JAR TP SCH (11:19)
[2021-12-24 11:23] LABS: ANISOCYTOSIS 0; HELMET CELLS 0; HOWELL-JOLLY BODIES 0; MACROCYTOSIS 0; OVALOCYTE 0; ROULEAU 0; SICKELED CELLS 0; TARGET CELLS 0; TEAR DROP CELLS 0; TOXIC GRANULATION 0
[2021-12-24] MEDS ORDERED: MAGNESIUM SULF 50% (8.12 MEQ/2 ML-1 GM VIAL) IVPB ONE (12:45)
[2021-12-24] MEDS: FUROSEMIDE 40 MG/4 ML INJECTABLE VIAL IVPUSH SCH ×2 (13:03→16:24)
[2021-12-24] MEDS ORDERED: SODIUM PHOSPHATE - 30 MM in DEXTROSE 5%-WATER - 500 ML IVPB ONE (13:15)
[2021-12-24] MEDS: SODIUM CHLORIDE 1,000 ML IV SCH (13:18)
[2021-12-24] MEDS: DOCUSATE NA 100 MG/10 ML UNIT-DOSE CUPS GT SCH (21:53)
[2021-12-24] MEDS: ATORVASTATIN CA 80 MG TABLET (FP) GT SCH (21:53)
[2021-12-25] MEDS: FUROSEMIDE 40 MG/4 ML INJECTABLE VIAL IVPUSH SCH ×2 (05:38→15:01)
[2021-12-25] MEDS: PANTOPRAZOLE SODIUM 40 MG VIAL IVPUSH SCH (09:13)
[2021-12-25] MEDS: LACTOBACILLUS ACIDOPHILUS 1 TABLET GT SCH (09:14)
[2021-12-25] MEDS: levETIRAcetam 500 MG/5 ML INJECTION VIAL IVPB SCH ×2 (09:14→23:31)
[2021-12-25] MEDS: ASCORBIC ACID 500 MG TABLET (FP) GT SCH (09:15)
[2021-12-25] MEDS: MIDODRINE HCL 5 MG TABLET GT SCH (09:15)
[2021-12-25] MEDS: MULTIVIT-MINERALS ORAL LIQUID GT SCH (09:15)
[2021-12-25] MEDS: ZINC SULFATE 220 MG CAPSULE (FP) GT SCH (09:15)
[2021-12-25 09:30] LABS: CALCIUM 7.7 mg/dL (8.5-10.1)
[2021-12-25 09:31] LABS: ALBUMIN 1.8 g/dl (3.4-5.0); BLOOD UREA NITROGEN 50.6 mg/dL (7-18); MAGNESIUM 2.2 mg/dL (1.8-2.4)
[2021-12-25 09:34] LABS: CREATININE 1.1 mg/dL (0.55-1.3); PHOSPHOROUS 2.8 mg/dL (2.5-4.9)
[2021-12-25 09:35] LABS: BILIRUBIN,TOTAL 0.8 mg/dL (0.2-1); TOT PROT 6.5 g/dl (6.4-8.2)
[2021-12-25] MEDS: POTASSIUM CHLORIDE 30 MEQ in AMINO ACIDS 4.25%/D5W 1,000 ML IV SCH ×2 (15:02→16:32)
[2021-12-25] MEDS: TRIAMCINOLONE ACET 0.1% 60 ML LOTION TP SCH ×2 (15:02→23:31)
[2021-12-25] MEDS: SILVER SULFADIAZINE 1% TOP CREAM 50 GM JAR TP SCH (15:02)
[2021-12-25] MEDS: DOCUSATE NA 100 MG/10 ML UNIT-DOSE CUPS GT SCH (23:31)
[2021-12-25] MEDS: ATORVASTATIN CA 80 MG TABLET (FP) GT SCH (23:32)
[2021-12-26] MEDS: FUROSEMIDE 40 MG/4 ML INJECTABLE VIAL IVPUSH SCH ×2 (06:42→13:25)
[2021-12-26 09:52] LABS: BLOOD UREA NITROGEN 52.4 mg/dL (7-18); CALCIUM 7.9 mg/dL (8.5-10.1); MAGNESIUM 1.9 mg/dL (1.8-2.4)
[2021-12-26 09:55] LABS: CREATININE 1.2 mg/dL (0.55-1.3); PHOSPHOROUS 2.1 mg/dL (2.5-4.9)
[2021-12-26 09:57] LABS: BILIRUBIN,TOTAL 0.6 mg/dL (0.2-1); TOT PROT 6.6 g/dl (6.4-8.2)
[2021-12-26] MEDS: LACTOBACILLUS ACIDOPHILUS 1 TABLET GT SCH (10:24)
[2021-12-26] MEDS: TRIAMCINOLONE ACET 0.1% 60 ML LOTION TP SCH (10:24)
[2021-12-26] MEDS: MULTIVIT-MINERALS ORAL LIQUID GT SCH (10:25)
[2021-12-26] MEDS: ZINC SULFATE 220 MG CAPSULE (FP) GT SCH (10:25)
[2021-12-26] MEDS: MIDODRINE HCL 5 MG TABLET GT SCH (10:25)
[2021-12-26] MEDS: PANTOPRAZOLE SODIUM 40 MG VIAL IVPUSH SCH (10:25)
[2021-12-26] MEDS: levETIRAcetam 500 MG/5 ML INJECTION VIAL IVPB SCH (10:26)
[2021-12-26] MEDS: ASCORBIC ACID 500 MG TABLET (FP) GT SCH (10:26)
[2021-12-26] MEDS: SILVER SULFADIAZINE 1% TOP CREAM 50 GM JAR TP SCH (10:26)
[2021-12-26] MEDS ORDERED: POTASSIUM PHOSPHATE 15 MM in DEXTROSE 5%-WATER - 500 ML IVPB ONE (11:15)
[2021-12-26] MEDS: POTASSIUM CHLORIDE 30 MEQ in AMINO ACIDS 4.25%/D5W 1,000 ML IV SCH (13:25)
[2021-12-27] MEDS: levETIRAcetam 500 MG/5 ML INJECTION VIAL IVPB SCH ×4 (00:24→22:11)
[2021-12-27] MEDS: DOCUSATE NA 100 MG/10 ML UNIT-DOSE CUPS GT SCH ×2 (00:24→22:10)
[2021-12-27] MEDS: TRIAMCINOLONE ACET 0.1% 60 ML LOTION TP SCH ×3 (00:24→22:09)
[2021-12-27] MEDS: ATORVASTATIN CA 80 MG TABLET (FP) GT SCH ×2 (00:25→22:10)
[2021-12-27] MEDS: FUROSEMIDE 40 MG/4 ML INJECTABLE VIAL IVPUSH SCH ×2 (06:21→16:31)
[2021-12-27] MEDS: MULTIVIT-MINERALS ORAL LIQUID GT SCH (10:03)
[2021-12-27] MEDS: LACTOBACILLUS ACIDOPHILUS 1 TABLET GT SCH (10:03)
[2021-12-27] MEDS: ZINC SULFATE 220 MG CAPSULE (FP) GT SCH (10:03)
[2021-12-27] MEDS: ASCORBIC ACID 500 MG TABLET (FP) GT SCH (10:04)
[2021-12-27] MEDS: MIDODRINE HCL 5 MG TABLET GT SCH (10:04)
[2021-12-27] MEDS: PANTOPRAZOLE SODIUM 40 MG VIAL IVPUSH SCH (10:14)
[2021-12-27 11:40] LABS: CALCIUM 8.4 mg/dL (8.5-10.1); MAGNESIUM 1.9 mg/dL (1.8-2.4)
[2021-12-27 11:41] LABS: BLOOD UREA NITROGEN 48.7 mg/dL (7-18)
[2021-12-27 11:44] LABS: BILIRUBIN,TOTAL 0.7 mg/dL (0.2-1); TOT PROT 6.8 g/dl (6.4-8.2)
[2021-12-27] MEDS: SILVER SULFADIAZINE 1% TOP CREAM 50 GM JAR TP SCH (12:20)
[2021-12-27] MEDS ORDERED: TRIPLE LUMEN FLUSH 4 ML ML IVPUSH PRN (14:18)
[2021-12-27] MEDS: POTASSIUM CHLORIDE 30 MEQ in AMINO ACIDS 4.25%/D5W 1,000 ML IV SCH ×3 (17:48→22:08)
[2021-12-27] MEDS: MULTIVIT INJ. ADULT COMBO WITH VIT K 1 COMBO 10 ML VIAL IV SCH (17:49)
[2021-12-27] MEDS ORDERED: FAT EMULSIONS 20% 250 ML PREMIX INFUS.BAG IV SCH (22:00)
[2021-12-27] MEDS: FAT EMULSION/OLIVE/SOY/PHOSPHO 250 ML IV SCH (22:09)
[2021-12-28] MEDS: POTASSIUM CHLORIDE 30 MEQ in AMINO ACIDS 4.25%/D5W 1,000 ML IV SCH ×2 (06:20→18:21)
[2021-12-28] MEDS: FUROSEMIDE 40 MG/4 ML INJECTABLE VIAL IVPUSH SCH ×2 (06:21→13:05)
[2021-12-28 09:49] LABS: CALCIUM 8.2 mg/dL (8.5-10.1)
[2021-12-28 09:50] LABS: ALBUMIN 2.1 g/dl (3.4-5.0); BLOOD UREA NITROGEN 53.2 mg/dL (7-18); MAGNESIUM 1.7 mg/dL (1.8-2.4)
[2021-12-28 09:52] LABS: BILIRUBIN,TOTAL 0.6 mg/dL (0.2-1); CREATININE 1.1 mg/dL (0.55-1.3); PHOSPHOROUS 2.2 mg/dL (2.5-4.9); TOT PROT 6.8 g/dl (6.4-8.2)
[2021-12-28] MEDS: ZINC SULFATE 220 MG CAPSULE (FP) GT SCH (10:07)
[2021-12-28] MEDS: PANTOPRAZOLE SODIUM 40 MG VIAL IVPUSH SCH (10:07)
[2021-12-28] MEDS: MIDODRINE HCL 5 MG TABLET GT SCH (10:08)
[2021-12-28] MEDS: LACTOBACILLUS ACIDOPHILUS 1 TABLET GT SCH (10:08)
[2021-12-28] MEDS: ASCORBIC ACID 500 MG TABLET (FP) GT SCH (10:08)
[2021-12-28] MEDS: TRIAMCINOLONE ACET 0.1% 60 ML LOTION TP SCH (10:10)
[2021-12-28] MEDS: levETIRAcetam 500 MG/5 ML INJECTION VIAL IVPB SCH ×2 (10:10→21:21)
[2021-12-28 10:57] LABS: HEMATOCRIT 27.4 % (32.4-45.2); HEMOGLOBIN 9.3 GM/dL (10.7-15.3); MCH 29.6 pg (25.7-33.7); MCHC 34.1 g/dl (32.0-36.0); MEAN PLT VOLUME 7.4 fl (7.5-11.1); PLATELET COUNT 218 10^3/uL (134-434); RBC 3.14 M/mm3 (3.60-5.2); RDW 17.2 % (11.6-15.6); WHITE BLOOD COUNT 7.8 K/mm3 (4.0-10.0)
[2021-12-28 11:45] LABS: ANISOCYTOSIS 0; HELMET CELLS 0; HOWELL-JOLLY BODIES 0; MACROCYTOSIS 0; OVALOCYTE 0; ROULEAU 0; SICKELED CELLS 0; TARGET CELLS 0; TEAR DROP CELLS 0; TOXIC GRANULATION 0
[2021-12-28] MEDS: SILVER SULFADIAZINE 1% TOP CREAM 50 GM JAR TP SCH (11:48)
[2021-12-28] MEDS: MULTIVIT INJ. ADULT COMBO WITH VIT K 1 COMBO 10 ML VIAL IV SCH (18:21)
[2021-12-28] MEDS: DOCUSATE NA 100 MG/10 ML UNIT-DOSE CUPS GT SCH (21:21)
[2021-12-28] MEDS: ATORVASTATIN CA 80 MG TABLET (FP) GT SCH (21:21)
[2021-12-28] MEDS: FAT EMULSION/OLIVE/SOY/PHOSPHO 250 ML IV SCH (22:08)
[2021-12-29] MEDS: TRIAMCINOLONE ACET 0.1% 60 ML LOTION TP SCH ×3 (00:30→21:53)
[2021-12-29] MEDS: FUROSEMIDE 40 MG/4 ML INJECTABLE VIAL IVPUSH SCH ×2 (05:31→14:48)
[2021-12-29] MEDS: POTASSIUM CHLORIDE 30 MEQ in AMINO ACIDS 4.25%/D5W 1,000 ML IV SCH ×2 (06:31→16:31)
[2021-12-29] MEDS: PANTOPRAZOLE SODIUM 40 MG VIAL IVPUSH SCH (10:55)
[2021-12-29] MEDS: LACTOBACILLUS ACIDOPHILUS 1 TABLET GT SCH (10:57)
[2021-12-29] MEDS: ZINC SULFATE 220 MG CAPSULE (FP) GT SCH (10:58)
[2021-12-29] MEDS: MIDODRINE HCL 5 MG TABLET GT SCH (10:58)
[2021-12-29] MEDS: levETIRAcetam 500 MG/5 ML INJECTION VIAL IVPB SCH ×2 (11:00→21:55)
[2021-12-29] MEDS: SILVER SULFADIAZINE 1% TOP CREAM 50 GM JAR TP SCH (11:00)
[2021-12-29] MEDS: ASCORBIC ACID 500 MG TABLET (FP) GT SCH (11:00)
[2021-12-29] MEDS: MULTIVIT INJ. ADULT COMBO WITH VIT K 1 COMBO 10 ML VIAL IV SCH (16:32)
[2021-12-29] MEDS: DOCUSATE NA 100 MG/10 ML UNIT-DOSE CUPS GT SCH (21:52)
[2021-12-29] MEDS: ATORVASTATIN CA 80 MG TABLET (FP) GT SCH (21:53)
[2021-12-29] MEDS: FAT EMULSION/OLIVE/SOY/PHOSPHO 250 ML IV SCH (21:54)
[2021-12-30] MEDS: POTASSIUM CHLORIDE 30 MEQ in AMINO ACIDS 4.25%/D5W 1,000 ML IV SCH ×3 (04:22→16:49)
[2021-12-30] MEDS: FUROSEMIDE 40 MG/4 ML INJECTABLE VIAL IVPUSH SCH ×2 (05:58→14:47)
[2021-12-30 10:37] LABS: HEMATOCRIT 29.6 % (32.4-45.2); HEMOGLOBIN 10.5 GM/dL (10.7-15.3); MCH 30.6 pg (25.7-33.7); MCHC 35.3 g/dl (32.0-36.0); MEAN CELL VOLUME 86.8 fl (80-96); MEAN PLT VOLUME 7.1 fl (7.5-11.1); PLATELET COUNT 220 10^3/uL (134-434); RBC 3.42 M/mm3 (3.60-5.2); RDW 17.4 % (11.6-15.6); WHITE BLOOD COUNT 7.8 K/mm3 (4.0-10.0)
[2021-12-30 10:55] LABS: CALCIUM 8.6 mg/dL (8.5-10.1)
[2021-12-30 10:56] LABS: BLOOD UREA NITROGEN 61.7 mg/dL (7-18); MAGNESIUM 1.4 mg/dL (1.8-2.4)
[2021-12-30 10:58] LABS: CREATININE 1.1 mg/dL (0.55-1.3)
[2021-12-30] MEDS: LACTOBACILLUS ACIDOPHILUS 1 TABLET GT SCH (11:09)
[2021-12-30] MEDS: ZINC SULFATE 220 MG CAPSULE (FP) GT SCH (11:09)
[2021-12-30] MEDS: MIDODRINE HCL 5 MG TABLET GT SCH (11:12)
[2021-12-30] MEDS: PANTOPRAZOLE SODIUM 40 MG VIAL IVPUSH SCH (11:12)
[2021-12-30] MEDS: ASCORBIC ACID 500 MG TABLET (FP) GT SCH (11:13)
[2021-12-30] MEDS: SILVER SULFADIAZINE 1% TOP CREAM 50 GM JAR TP SCH (11:13)
[2021-12-30] MEDS: levETIRAcetam 500 MG/5 ML INJECTION VIAL IVPB SCH ×2 (11:24→22:41)
[2021-12-30] MEDS: TRIAMCINOLONE ACET 0.1% 60 ML LOTION TP SCH ×2 (12:05→22:42)
[2021-12-30] MEDS ORDERED: MAGNESIUM SULF 50% (8.12 MEQ/2 ML-1 GM VIAL) IVPB ONE (12:35)
[2021-12-30] MEDS: MULTIVIT INJ. ADULT COMBO WITH VIT K 1 COMBO 10 ML VIAL IV SCH (16:50)
[2021-12-30] MEDS: DOCUSATE NA 100 MG/10 ML UNIT-DOSE CUPS GT SCH (22:42)
[2021-12-30] MEDS: FAT EMULSION/OLIVE/SOY/PHOSPHO 250 ML IV SCH (22:42)
[2021-12-30] MEDS: ATORVASTATIN CA 80 MG TABLET (FP) GT SCH (22:43)
[2021-12-31] MEDS: POTASSIUM CHLORIDE 30 MEQ in AMINO ACIDS 4.25%/D5W 1,000 ML IV SCH ×3 (05:16→15:27)
[2021-12-31] MEDS: FUROSEMIDE 40 MG/4 ML INJECTABLE VIAL IVPUSH SCH ×2 (06:37→15:30)
[2021-12-31 10:37] LABS: MAGNESIUM 1.9 mg/dL (1.8-2.4)
[2021-12-31 10:38] LABS: BLOOD UREA NITROGEN 66.4 mg/dL (7-18)
[2021-12-31 10:39] LABS: ALBUMIN 2.6 g/dl (3.4-5.0)
[2021-12-31 10:40] LABS: CREATININE 1.2 mg/dL (0.55-1.3)
[2021-12-31 10:41] LABS: TOT PROT 8.5 g/dl (6.4-8.2)
[2021-12-31 10:42] LABS: PHOSPHOROUS 2.2 mg/dL (2.5-4.9)
[2021-12-31] MEDS: MIDODRINE HCL 5 MG TABLET GT SCH (10:42)
[2021-12-31 10:43] LABS: BILIRUBIN,TOTAL 0.4 mg/dL (0.2-1)
[2021-12-31] MEDS: ASCORBIC ACID 500 MG TABLET (FP) GT SCH (10:43)
[2021-12-31] MEDS: ZINC SULFATE 220 MG CAPSULE (FP) GT SCH (10:43)
[2021-12-31] MEDS: levETIRAcetam 500 MG/5 ML INJECTION VIAL IVPB SCH ×2 (10:43→22:29)
[2021-12-31] MEDS: TRIAMCINOLONE ACET 0.1% 60 ML LOTION TP SCH ×2 (10:43→22:36)
[2021-12-31] MEDS: LACTOBACILLUS ACIDOPHILUS 1 TABLET GT SCH (10:43)
[2021-12-31] MEDS: PANTOPRAZOLE SODIUM 40 MG VIAL IVPUSH SCH (10:44)
[2021-12-31] MEDS: SILVER SULFADIAZINE 1% TOP CREAM 50 GM JAR TP SCH (11:06)
[2021-12-31] MEDS: MULTIVIT INJ. ADULT COMBO WITH VIT K 1 COMBO 10 ML VIAL IV SCH (15:27)
[2021-12-31] MEDS: [UNRECOGNIZED DRUG - OTHER] IVPB SCH (15:29)
[2021-12-31] MEDS: POTASSIUM PHOSPHATE IVPB SCH (15:29)
[2021-12-31] MEDS: MULTIVIT IVPB SCH (15:29)
[2021-12-31] MEDS: DOCUSATE NA 100 MG/10 ML UNIT-DOSE CUPS GT SCH (22:35)
[2021-12-31] MEDS: ATORVASTATIN CA 80 MG TABLET (FP) GT SCH (22:36)
[2022-01-01] MEDS: FUROSEMIDE 40 MG/4 ML INJECTABLE VIAL IVPUSH SCH ×2 (06:25→15:02)
[2022-01-01] MEDS ORDERED: ACETAMINOPHEN 650 MG/20.3 ML ORAL SOLUTION (CUPS) PO PRN (10:51)
[2022-01-01] MEDS ORDERED: oxyCODONE HCL 5 MG TABLET PO PRN (10:51)
[2022-01-01] MEDS: MIDODRINE HCL 5 MG TABLET GT SCH (11:26)
[2022-01-01] MEDS: ASCORBIC ACID 500 MG TABLET (FP) GT SCH (11:26)
[2022-01-01] MEDS: levETIRAcetam 500 MG/5 ML INJECTION VIAL IVPB SCH ×2 (11:26→22:38)
[2022-01-01] MEDS: PANTOPRAZOLE SODIUM 40 MG VIAL IVPUSH SCH (11:26)
[2022-01-01] MEDS: TRIAMCINOLONE ACET 0.1% 60 ML LOTION TP SCH ×2 (11:27→22:39)
[2022-01-01] MEDS: SILVER SULFADIAZINE 1% TOP CREAM 50 GM JAR TP SCH (11:27)
[2022-01-01] MEDS: ZINC SULFATE 220 MG CAPSULE (FP) GT SCH (11:27)
[2022-01-01] MEDS: LACTOBACILLUS ACIDOPHILUS 1 TABLET GT SCH (11:27)
[2022-01-01] MEDS ORDERED: IRON SUCROSE INJECTION 300 MG in SODIUM CHLORIDE 235 ML IVPB ONE (12:00)
[2022-01-01] MEDS: MULTIVIT IVPB SCH (15:33)
[2022-01-01] MEDS: [UNRECOGNIZED DRUG - OTHER] IVPB SCH (15:33)
[2022-01-01] MEDS: POTASSIUM PHOSPHATE IVPB SCH (15:33)
[2022-01-01] MEDS: DOCUSATE NA 100 MG/10 ML UNIT-DOSE CUPS GT SCH (22:38)
[2022-01-01] MEDS: ATORVASTATIN CA 80 MG TABLET (FP) GT SCH (22:38)
[2022-01-02] MEDS: FUROSEMIDE 40 MG/4 ML INJECTABLE VIAL IVPUSH SCH ×2 (07:10→13:42)
[2022-01-02 08:21] LABS: HEMATOCRIT 20.9 % (32.4-45.2); HEMOGLOBIN 9.5 GM/dL (10.7-15.3); MCH 39.6 pg (25.7-33.7); MEAN CELL VOLUME 87.5 fl (80-96); MEAN PLT VOLUME 8.1 fl (7.5-11.1); PLATELET COUNT 517 10^3/uL (134-434); RBC 2.39 M/mm3 (3.60-5.2); RDW 17.8 % (11.6-15.6)
[2022-01-02 08:24] LABS: MCHC 45.2 g/dl (32.0-36.0); WHITE BLOOD COUNT 23.1 K/mm3 (4.0-10.0)
[2022-01-02 08:37] LABS: CREATININE 1.2 mg/dL (0.55-1.3); MAGNESIUM 1.5 mg/dL (1.8-2.4)
[2022-01-02 08:39] LABS: TOT PROT 7.6 g/dl (6.4-8.2)
[2022-01-02 08:40] LABS: ALBUMIN 2.2 g/dl (3.4-5.0)
[2022-01-02 08:42] LABS: PHOSPHOROUS 4.6 mg/dL (2.5-4.9)
[2022-01-02 08:44] LABS: BILIRUBIN,TOTAL 0.9 mg/dL (0.2-1)
[2022-01-02] MEDS: MIDODRINE HCL 5 MG TABLET GT SCH (10:03)
[2022-01-02] MEDS: ZINC SULFATE 220 MG CAPSULE (FP) GT SCH (10:03)
[2022-01-02] MEDS: ASCORBIC ACID 500 MG TABLET (FP) GT SCH (10:03)
[2022-01-02] MEDS: TRIAMCINOLONE ACET 0.1% 60 ML LOTION TP SCH ×2 (10:03→21:17)
[2022-01-02] MEDS: PANTOPRAZOLE SODIUM 40 MG VIAL IVPUSH SCH (10:03)
[2022-01-02] MEDS: LACTOBACILLUS ACIDOPHILUS 1 TABLET GT SCH (10:03)
[2022-01-02] MEDS: levETIRAcetam 500 MG/5 ML INJECTION VIAL IVPB SCH ×2 (10:04→21:19)
[2022-01-02 10:50] LABS: ANISOCYTOSIS 2+; MACROCYTOSIS 2+
[2022-01-02] MEDS: SILVER SULFADIAZINE 1% TOP CREAM 50 GM JAR TP SCH (13:42)
[2022-01-02] MEDS ORDERED: POTASSIUM CHLORIDE IV SCH (14:00)
[2022-01-02] MEDS ORDERED: [UNRECOGNIZED DRUG - OTHER] IV SCH (14:00)
[2022-01-02] MEDS ORDERED: MAGNESIUM SULFATE IV SCH (14:00)
[2022-01-02] MEDS ORDERED: MULTIVIT IV SCH (14:00)
[2022-01-02] MEDS: DOCUSATE NA 100 MG/10 ML UNIT-DOSE CUPS GT SCH (21:18)
[2022-01-02] MEDS: ATORVASTATIN CA 80 MG TABLET (FP) GT SCH (21:19)
[2022-01-02] MEDS: FAT EMULSION/OLIVE/SOY/PHOSPHO 250 ML IV SCH (21:35)
[2022-01-03] MEDS: FUROSEMIDE 40 MG/4 ML INJECTABLE VIAL IVPUSH SCH ×2 (06:45→14:57)
[2022-01-03 08:57] LABS: HEMATOCRIT 27.9 % (32.4-45.2); HEMOGLOBIN 9.7 GM/dL (10.7-15.3); MCH 30.1 pg (25.7-33.7); MCHC 34.7 g/dl (32.0-36.0); MEAN CELL VOLUME 86.6 fl (80-96); MEAN PLT VOLUME 7.2 fl (7.5-11.1); PLATELET COUNT 260 10^3/uL (134-434); RBC 3.22 M/mm3 (3.60-5.2); RDW 17.7 % (11.6-15.6)
[2022-01-03 09:23] LABS: ALBUMIN 2.3 g/dl (3.4-5.0); CALCIUM 8.6 mg/dL (8.5-10.1); MAGNESIUM 2.6 mg/dL (1.8-2.4)
[2022-01-03 09:26] LABS: CREATININE 1.2 mg/dL (0.55-1.3); PHOSPHOROUS 3.1 mg/dL (2.5-4.9)
[2022-01-03 09:28] LABS: BILIRUBIN,TOTAL 0.5 mg/dL (0.2-1); TOT PROT 7.5 g/dl (6.4-8.2)
[2022-01-03] MEDS: PANTOPRAZOLE SODIUM 40 MG VIAL IVPUSH SCH (10:01)
[2022-01-03] MEDS: levETIRAcetam 500 MG/5 ML INJECTION VIAL IVPB SCH ×2 (10:03→22:18)
[2022-01-03] MEDS: MIDODRINE HCL 5 MG TABLET GT SCH (10:04)
[2022-01-03] MEDS: SILVER SULFADIAZINE 1% TOP CREAM 50 GM JAR TP SCH (10:04)
[2022-01-03] MEDS: LACTOBACILLUS ACIDOPHILUS 1 TABLET GT SCH (10:04)
[2022-01-03] MEDS: ZINC SULFATE 220 MG CAPSULE (FP) GT SCH (10:04)
[2022-01-03] MEDS: ASCORBIC ACID 500 MG TABLET (FP) GT SCH (10:04)
[2022-01-03] MEDS: TRIAMCINOLONE ACET 0.1% 60 ML LOTION TP SCH ×2 (10:06→22:20)
[2022-01-03] MEDS ORDERED: MULTIVIT IV ONE (14:00)
[2022-01-03] MEDS ORDERED: MAGNESIUM SULFATE IV ONE (14:00)
[2022-01-03] MEDS ORDERED: POTASSIUM ACETATE IV ONE (14:00)
[2022-01-03] MEDS ORDERED: [UNRECOGNIZED DRUG - OTHER] IV ONE (14:00)
[2022-01-03] MEDS: ATORVASTATIN CA 80 MG TABLET (FP) GT SCH (22:19)
[2022-01-03] MEDS: DOCUSATE NA 100 MG/10 ML UNIT-DOSE CUPS GT SCH (22:19)
[2022-01-03] MEDS: FAT EMULSION/OLIVE/SOY/PHOSPHO 250 ML IV SCH (22:41)
[2022-01-04] MEDS: FUROSEMIDE 40 MG/4 ML INJECTABLE VIAL IVPUSH SCH ×2 (05:36→15:34)
[2022-01-04] MEDS: levETIRAcetam 500 MG/5 ML INJECTION VIAL IVPB SCH ×2 (11:23→21:07)
[2022-01-04] MEDS: MIDODRINE HCL 5 MG TABLET GT SCH (11:35)
[2022-01-04] MEDS: LACTOBACILLUS ACIDOPHILUS 1 TABLET GT SCH (11:35)
[2022-01-04] MEDS: ZINC SULFATE 220 MG CAPSULE (FP) GT SCH (11:35)
[2022-01-04] MEDS: ASCORBIC ACID 500 MG TABLET (FP) GT SCH (11:35)
[2022-01-04] MEDS: PANTOPRAZOLE SODIUM 40 MG VIAL IVPUSH SCH (11:40)
[2022-01-04] MEDS: TRIAMCINOLONE ACET 0.1% 60 ML LOTION TP SCH ×2 (14:06→21:11)
[2022-01-04] MEDS: SILVER SULFADIAZINE 1% TOP CREAM 50 GM JAR TP SCH (14:06)
[2022-01-04 14:33] LABS: ALBUMIN 2.2 g/dl (3.4-5.0); CALCIUM 8.4 mg/dL (8.5-10.1)
[2022-01-04 14:34] LABS: BLOOD UREA NITROGEN 89.5 mg/dL (7-18); MAGNESIUM 2.6 mg/dL (1.8-2.4)
[2022-01-04 14:37] LABS: CREATININE 1.4 mg/dL (0.55-1.3); PHOSPHOROUS 2.4 mg/dL (2.5-4.9)
[2022-01-04 14:38] LABS: BILIRUBIN,TOTAL 0.4 mg/dL (0.2-1); TOT PROT 7.6 g/dl (6.4-8.2)
[2022-01-04] MEDS: ATORVASTATIN CA 80 MG TABLET (FP) GT SCH (21:07)
[2022-01-04] MEDS: DOCUSATE NA 100 MG/10 ML UNIT-DOSE CUPS GT SCH (21:07)
[2022-01-04] MEDS ORDERED: MULTIVIT IV ONE (22:00)
[2022-01-04] MEDS ORDERED: MAGNESIUM SULFATE IV ONE (22:00)
[2022-01-04] MEDS ORDERED: MULTIVIT IVPB ONE (22:00)
[2022-01-04] MEDS ORDERED: [UNRECOGNIZED DRUG - OTHER] IV ONE (22:00)
[2022-01-04] MEDS ORDERED: POTASSIUM ACETATE IV ONE (22:00)
[2022-01-04] MEDS ORDERED: POTASSIUM PHOSPHATE IVPB ONE (22:00)
[2022-01-04] MEDS ORDERED: [UNRECOGNIZED DRUG - OTHER] IVPB ONE (22:00)
[2022-01-04] MEDS: FAT EMULSION/OLIVE/SOY/PHOSPHO 250 ML IV SCH (22:48)
[2022-01-05] MEDS: FUROSEMIDE 40 MG/4 ML INJECTABLE VIAL IVPUSH SCH (05:24)
[2022-01-05 10:03] LABS: ALBUMIN 2.2 g/dl (3.4-5.0); BLOOD UREA NITROGEN 89.8 mg/dL (7-18); CALCIUM 8.4 mg/dL (8.5-10.1)
[2022-01-05 10:04] LABS: MAGNESIUM 2.4 mg/dL (1.8-2.4)
[2022-01-05 10:06] LABS: CREATININE 1.4 mg/dL (0.55-1.3); PHOSPHOROUS 2.8 mg/dL (2.5-4.9)
[2022-01-05 10:08] LABS: BILIRUBIN,TOTAL 0.4 mg/dL (0.2-1); TOT PROT 7.5 g/dl (6.4-8.2)
[2022-01-05] MEDS: TRIAMCINOLONE ACET 0.1% 60 ML LOTION TP SCH ×2 (10:52→21:52)
[2022-01-05] MEDS: PANTOPRAZOLE SODIUM 40 MG VIAL IVPUSH SCH (10:52)
[2022-01-05] MEDS: levETIRAcetam 500 MG/5 ML INJECTION VIAL IVPB SCH (10:52)
[2022-01-05] MEDS: LACTOBACILLUS ACIDOPHILUS 1 TABLET GT SCH (10:52)
[2022-01-05] MEDS: ASCORBIC ACID 500 MG TABLET (FP) GT SCH (10:52)
[2022-01-05] MEDS: ZINC SULFATE 220 MG CAPSULE (FP) GT SCH (10:52)
[2022-01-05] MEDS: SILVER SULFADIAZINE 1% TOP CREAM 50 GM JAR TP SCH (10:52)
[2022-01-05] MEDS: MIDODRINE HCL 5 MG TABLET GT SCH (10:52)
[2022-01-05] MEDS: FAT EMULSION/OLIVE/SOY/PHOSPHO 250 ML IV SCH (21:52)
[2022-01-06] MEDS: SILVER SULFADIAZINE 1% TOP CREAM 50 GM JAR TP SCH (08:30)
[2022-01-06 09:45] LABS: HEMATOCRIT 29.3 % (32.4-45.2); HEMOGLOBIN 9.8 GM/dL (10.7-15.3); MCH 29.5 pg (25.7-33.7); MCHC 33.6 g/dl (32.0-36.0); MEAN CELL VOLUME 87.8 fl (80-96); MEAN PLT VOLUME 7.5 fl (7.5-11.1); PLATELET COUNT 289 10^3/uL (134-434); RBC 3.34 M/mm3 (3.60-5.2); RDW 17.8 % (11.6-15.6); WHITE BLOOD COUNT 15.5 K/mm3 (4.0-10.0)
[2022-01-06 09:58] LABS: CALCIUM 8.3 mg/dL (8.5-10.1)
[2022-01-06 09:59] LABS: MAGNESIUM 2.4 mg/dL (1.8-2.4)
[2022-01-06 10:01] LABS: ALBUMIN 2.2 g/dl (3.4-5.0); BLOOD UREA NITROGEN 90.4 mg/dL (7-18)
[2022-01-06 10:02] LABS: CREATININE 1.4 mg/dL (0.55-1.3)
[2022-01-06 10:04] LABS: PHOSPHOROUS 3.8 mg/dL (2.5-4.9); TOT PROT 7.6 g/dl (6.4-8.2)
[2022-01-06 10:05] LABS: BILIRUBIN,TOTAL 0.5 mg/dL (0.2-1)
[2022-01-06 10:17] LABS: ANISOCYTOSIS 0; HELMET CELLS 0; HOWELL-JOLLY BODIES 0; MACROCYTOSIS 0; OVALOCYTE 0; ROULEAU 0; SICKELED CELLS 0; TARGET CELLS 0; TEAR DROP CELLS 0; TOXIC GRANULATION 0
[2022-01-06] MEDS: PANTOPRAZOLE SODIUM 40 MG VIAL IVPUSH SCH (12:00)
[2022-01-06] MEDS: TRIAMCINOLONE ACET 0.1% 60 ML LOTION TP SCH ×2 (12:00→22:25)
[2022-01-06] MEDS ORDERED: CALCIUM GLUCONATE IV SCH (16:00)
[2022-01-06] MEDS ORDERED: [UNRECOGNIZED DRUG - OTHER] IV SCH (16:00)
[2022-01-06] MEDS ORDERED: SODIUM PHOSPHATE IV SCH (16:00)
[2022-01-06] MEDS ORDERED: POTASSIUM ACETATE IV SCH (16:00)
[2022-01-06] MEDS ORDERED: ACETAMINOPHEN 1000 MG/100 ML BAG IVPB PRN (17:06)
[2022-01-06] MEDS: FAT EMULSION/OLIVE/SOY/PHOSPHO 250 ML IV SCH (22:25)
[2022-01-07 08:52] LABS: HEMATOCRIT 26.8 % (32.4-45.2); MCH 29.3 pg (25.7-33.7); MCHC 33.4 g/dl (32.0-36.0); MEAN CELL VOLUME 87.8 fl (80-96); MEAN PLT VOLUME 7.5 fl (7.5-11.1); PLATELET COUNT 300 10^3/uL (134-434); RBC 3.06 M/mm3 (3.60-5.2); RDW 17.8 % (11.6-15.6); WHITE BLOOD COUNT 14.6 K/mm3 (4.0-10.0)
[2022-01-07 09:17] LABS: CALCIUM 8.5 mg/dL (8.5-10.1)
[2022-01-07 09:18] LABS: ALBUMIN 2.1 g/dl (3.4-5.0); BLOOD UREA NITROGEN 93.4 mg/dL (7-18); MAGNESIUM 2.6 mg/dL (1.8-2.4)
[2022-01-07 09:21] LABS: CREATININE 1.5 mg/dL (0.55-1.3); PHOSPHOROUS 3.4 mg/dL (2.5-4.9)
[2022-01-07 09:23] LABS: BILIRUBIN,TOTAL 0.4 mg/dL (0.2-1); TOT PROT 7.5 g/dl (6.4-8.2)
[2022-01-07] MEDS: PANTOPRAZOLE SODIUM 40 MG VIAL IVPUSH SCH (10:50)
[2022-01-07] MEDS: TRIAMCINOLONE ACET 0.1% 60 ML LOTION TP SCH ×2 (10:52→21:37)
[2022-01-07] MEDS: SILVER SULFADIAZINE 1% TOP CREAM 50 GM JAR TP SCH (10:52)
[2022-01-07] MEDS: AMINO ACIDS 4.25%/D5W 1,000 ML IV SCH (15:59)
[2022-01-07] MEDS: FAT EMULSION/OLIVE/SOY/PHOSPHO 250 ML IV SCH (21:37)
[2022-01-08] MEDS: AMINO ACIDS 4.25%/D5W 1,000 ML IV SCH ×3 (04:17→22:43)
[2022-01-08 09:06] LABS: CALCIUM 8.4 mg/dL (8.5-10.1)
[2022-01-08 09:07] LABS: BLOOD UREA NITROGEN 98.5 mg/dL (7-18); MAGNESIUM 2.5 mg/dL (1.8-2.4)
[2022-01-08 09:10] LABS: BILIRUBIN,TOTAL 0.7 mg/dL (0.2-1); CREATININE 1.5 mg/dL (0.55-1.3); PHOSPHOROUS 3.3 mg/dL (2.5-4.9)
[2022-01-08 09:11] LABS: TOT PROT 7.4 g/dl (6.4-8.2)
[2022-01-08] MEDS: PANTOPRAZOLE SODIUM 40 MG VIAL IVPUSH SCH (09:32)
[2022-01-08] MEDS: SILVER SULFADIAZINE 1% TOP CREAM 50 GM JAR TP SCH (11:00)
[2022-01-08] MEDS: TRIAMCINOLONE ACET 0.1% 60 ML LOTION TP SCH ×2 (11:20→22:45)
[2022-01-08] MEDS ORDERED: DOCUSATE NA 100 MG/10 ML UNIT-DOSE CUPS PEG PRN (17:58)
[2022-01-08] MEDS: MIDODRINE HCL 2.5 MG TABLET PEG SCH (18:43)
[2022-01-08] MEDS ORDERED: FAT EMULSION/OLIVE/SOY (CLINOLIPID) 250 ML EMULSION IV SCH (22:00)
[2022-01-08] MEDS ORDERED: FAT EMULSION/OLIVE/SOY/PHOSPHO 250 ML IV SCH (22:00)
[2022-01-08] MEDS: ATORVASTATIN CA 80 MG TABLET (FP) PEG SCH (22:41)
[2022-01-08] MEDS: SODIUM CHLORIDE 1 GM TABLET GT SCH (22:41)
[2022-01-08] MEDS: ASCORBIC ACID 500 MG TABLET (FP) PEG SCH (22:41)
[2022-01-08] MEDS: levETIRAcetam 500 MG/5 ML ORAL SOLUTION (UNIT-DOSE CUPS) GT SCH (22:41)
[2022-01-09] MEDS: AMINO ACIDS 4.25%/D5W 1,000 ML IV SCH ×3 (07:41→22:02)
[2022-01-09 08:54] LABS: CALCIUM 8.1 mg/dL (8.5-10.1)
[2022-01-09 08:55] LABS: ALBUMIN 1.8 g/dl (3.4-5.0); MAGNESIUM 2.3 mg/dL (1.8-2.4)
[2022-01-09 08:57] LABS: BLOOD UREA NITROGEN 101.5 mg/dL (7-18)
[2022-01-09 08:58] LABS: CREATININE 1.4 mg/dL (0.55-1.3); PHOSPHOROUS 2.8 mg/dL (2.5-4.9)
[2022-01-09 08:59] LABS: BILIRUBIN,TOTAL 0.4 mg/dL (0.2-1); TOT PROT 7.4 g/dl (6.4-8.2)
[2022-01-09] MEDS: SILVER SULFADIAZINE 1% TOP CREAM 50 GM JAR TP SCH (09:38)
[2022-01-09] MEDS ORDERED: TRIAMCINOLONE ACET 0.1% OINT 15 GM TUBE TP SCH (10:00)
[2022-01-09] MEDS ORDERED: MULTIVIT-MINERALS ORAL LIQUID PEG SCH (10:00)
[2022-01-09] MEDS ORDERED: FAMOTIDINE 40 MG/5 ML ORAL SUSPENSION PEG SCH (10:00)
[2022-01-09] MEDS ORDERED: FUROSEMIDE 40 MG/5 ML UNIT-DOSE CUP PEG SCH (10:00)
[2022-01-09] MEDS: FERROUS SO4 300 MG/5 ML ORAL SOLN UNIT DOSE CUPS GT SCH (10:03)
[2022-01-09] MEDS: ZINC SULFATE 220 MG CAPSULE (FP) GT SCH (10:04)
[2022-01-09] MEDS: MIDODRINE HCL 2.5 MG TABLET PEG SCH ×2 (10:05→17:32)
[2022-01-09] MEDS: levETIRAcetam 500 MG/5 ML ORAL SOLUTION (UNIT-DOSE CUPS) GT SCH (10:06)
[2022-01-09] MEDS: SODIUM CHLORIDE 1 GM TABLET GT SCH (10:07)
[2022-01-09] MEDS: ASCORBIC ACID 500 MG TABLET (FP) PEG SCH (10:08)
[2022-01-09] MEDS: PANTOPRAZOLE SODIUM 40 MG VIAL IVPUSH SCH (10:21)
[2022-01-09] MEDS: TRIAMCINOLONE ACET 0.1% 60 ML LOTION TP SCH ×2 (10:23→22:03)
[2022-01-09 14:08] LABS: SARS-CoV-2 NAA Not Detected (Not Detected)
[2022-01-09] MEDS: COLLAGENASE CLOSTRIDIUM HIST. 30 GRAMS TUBE TP SCH (14:23)
[2022-01-09] MEDS: levETIRAcetam 500 MG/5 ML INJECTION VIAL IVPB SCH (22:02)
[2022-01-09] MEDS: ATORVASTATIN CA 80 MG TABLET (FP) PEG SCH (22:03)
[2022-01-10] MEDS ORDERED: FAMOTIDINE 40 MG/5 ML ORAL SUSPENSION PEG SCH (10:00)
[2022-01-10] MEDS ORDERED: FUROSEMIDE 40 MG/5 ML UNIT-DOSE CUP PEG SCH (10:00)
[2022-01-10] MEDS: ZINC SULFATE 220 MG CAPSULE (FP) GT SCH ×2 (11:01→18:13)
[2022-01-10] MEDS: MIDODRINE HCL 2.5 MG TABLET PEG SCH ×2 (11:01→18:13)
[2022-01-10] MEDS: FERROUS SO4 300 MG/5 ML ORAL SOLN UNIT DOSE CUPS GT SCH ×2 (11:01→18:13)
[2022-01-10] MEDS: levETIRAcetam 500 MG/5 ML INJECTION VIAL IVPB SCH ×2 (11:07→21:17)
[2022-01-10] MEDS: PANTOPRAZOLE SODIUM 40 MG VIAL IVPUSH SCH (11:09)
[2022-01-10 11:15] LABS: CHLORIDE 100 mmol/L (98-107); SODIUM 129 mmol/L (136-145)
[2022-01-10 11:34] LABS: ANION GAP 11 MMOL/L (8-16); BLOOD UREA NITROGEN 104.6 mg/dL (7-18); CALCIUM 8.8 mg/dL (8.5-10.1); CO2 18 mmol/L (21-32); CREATININE 1.4 mg/dL (0.55-1.3); GLUCOSE,RANDOM 104 mg/dL (74-106); MAGNESIUM 2.5 mg/dL (1.8-2.4); TRIGLYCERIDES 145 mg/dL (0-150)
[2022-01-10] MEDS ORDERED: FUROSEMIDE 40 MG/4 ML INJECTABLE VIAL IVPUSH ONE (12:15)
[2022-01-10] MEDS: SILVER SULFADIAZINE 1% TOP CREAM 50 GM JAR TP SCH (12:55)
[2022-01-10] MEDS: AMINO ACIDS 4.25%/D5W 1,000 ML IV SCH (15:16)
[2022-01-10] MEDS: COLLAGENASE CLOSTRIDIUM HIST. 30 GRAMS TUBE TP SCH (15:32)
[2022-01-10] MEDS: TRIAMCINOLONE ACET 0.1% 60 ML LOTION TP SCH ×2 (15:32→21:16)
[2022-01-10] MEDS ORDERED: SODIUM PHOSPHATE IV SCH (16:00)
[2022-01-10] MEDS ORDERED: POTASSIUM ACETATE IV SCH (16:00)
[2022-01-10] MEDS ORDERED: CALCIUM GLUCONATE IV SCH (16:00)
[2022-01-10] MEDS ORDERED: [UNRECOGNIZED DRUG - OTHER] IV SCH (16:00)
[2022-01-10] MEDS: ATORVASTATIN CA 80 MG TABLET (FP) PEG SCH (21:17)
[2022-01-10] MEDS ORDERED: FAT EMULSION/OLIVE/SOY/PHOSPHO 250 ML IV SCH (22:00)
[2022-01-11 10:19] LABS: CALCIUM 8.3 mg/dL (8.5-10.1)
[2022-01-11] MEDS: levETIRAcetam 500 MG/5 ML INJECTION VIAL IVPB SCH ×2 (10:19→21:23)
[2022-01-11] MEDS: PANTOPRAZOLE SODIUM 40 MG VIAL IVPUSH SCH (10:19)
[2022-01-11 10:20] LABS: BLOOD UREA NITROGEN 97.1 mg/dL (7-18); MAGNESIUM 2.4 mg/dL (1.8-2.4)
[2022-01-11] MEDS: ZINC SULFATE 220 MG CAPSULE (FP) GT SCH (10:20)
[2022-01-11] MEDS: MIDODRINE HCL 2.5 MG TABLET PEG SCH ×2 (10:20→17:08)
[2022-01-11] MEDS: FERROUS SO4 300 MG/5 ML ORAL SOLN UNIT DOSE CUPS GT SCH (10:21)
[2022-01-11 10:23] LABS: CREATININE 1.5 mg/dL (0.55-1.3); PHOSPHOROUS 3.6 mg/dL (2.5-4.9)
[2022-01-11] MEDS: TRIAMCINOLONE ACET 0.1% 60 ML LOTION TP SCH ×2 (13:00→21:22)
[2022-01-11] MEDS: COLLAGENASE CLOSTRIDIUM HIST. 30 GRAMS TUBE TP SCH (13:01)
[2022-01-11] MEDS: SILVER SULFADIAZINE 1% TOP CREAM 50 GM JAR TP SCH (13:01)
[2022-01-11] MEDS ORDERED: POTASSIUM ACETATE IV SCH (16:00)
[2022-01-11] MEDS ORDERED: CALCIUM GLUCONATE IV SCH (16:00)
[2022-01-11] MEDS ORDERED: SODIUM PHOSPHATE IV SCH (16:00)
[2022-01-11] MEDS ORDERED: [UNRECOGNIZED DRUG - OTHER] IV SCH (16:00)
[2022-01-11] MEDS: ATORVASTATIN CA 80 MG TABLET (FP) PEG SCH (21:23)
[2022-01-12 08:53] LABS: CALCIUM 8.6 mg/dL (8.5-10.1)
[2022-01-12 08:54] LABS: ALBUMIN 2.2 g/dl (3.4-5.0); BLOOD UREA NITROGEN 101.4 mg/dL (7-18)
[2022-01-12 08:57] LABS: CREATININE 1.4 mg/dL (0.55-1.3)
[2022-01-12 08:58] LABS: BILIRUBIN,TOTAL 0.3 mg/dL (0.2-1); TOT PROT 7.1 g/dl (6.4-8.2)
[2022-01-12] MEDS: MIDODRINE HCL 2.5 MG TABLET PEG SCH ×2 (10:00→17:44)
[2022-01-12] MEDS: levETIRAcetam 500 MG/5 ML INJECTION VIAL IVPB SCH ×2 (11:37→21:32)
[2022-01-12] MEDS: PANTOPRAZOLE SODIUM 40 MG VIAL IVPUSH SCH (11:37)
[2022-01-12] MEDS: TRIAMCINOLONE ACET 0.1% 60 ML LOTION TP SCH ×2 (14:00→21:34)
[2022-01-12] MEDS: COLLAGENASE CLOSTRIDIUM HIST. 30 GRAMS TUBE TP SCH (14:19)
[2022-01-12] MEDS: FERROUS SO4 300 MG/5 ML ORAL SOLN UNIT DOSE CUPS GT SCH (14:19)
[2022-01-12] MEDS: SILVER SULFADIAZINE 1% TOP CREAM 50 GM JAR TP SCH (14:19)
[2022-01-12] MEDS: ZINC SULFATE 220 MG CAPSULE (FP) GT SCH (14:19)
[2022-01-12] MEDS ORDERED: POTASSIUM ACETATE IV SCH (18:00)
[2022-01-12] MEDS ORDERED: SODIUM PHOSPHATE IV SCH (18:00)
[2022-01-12] MEDS ORDERED: CALCIUM GLUCONATE IV SCH (18:00)
[2022-01-12] MEDS ORDERED: [UNRECOGNIZED DRUG - OTHER] IV SCH (18:00)
[2022-01-12] MEDS: FAT EMULSION/OLIVE/SOY/PHOSPHO 250 ML IV SCH (21:32)
[2022-01-12] MEDS: ATORVASTATIN CA 80 MG TABLET (FP) PEG SCH (21:34)
[2022-01-13 06:43] LABS: CALCIUM 8.7 mg/dL (8.5-10.1)
[2022-01-13 06:44] LABS: ALBUMIN 2.1 g/dl (3.4-5.0); BLOOD UREA NITROGEN 94.2 mg/dL (7-18); MAGNESIUM 2.3 mg/dL (1.8-2.4)
[2022-01-13 06:45] LABS: HEMOGLOBIN 8.9 GM/dL (10.7-15.3); MCH 30.1 pg (25.7-33.7); MCHC 34.3 g/dl (32.0-36.0); MEAN CELL VOLUME 87.8 fl (80-96); PLATELET COUNT 318 10^3/uL (134-434); RBC 2.96 M/mm3 (3.60-5.2); RDW 17.7 % (11.6-15.6); WHITE BLOOD COUNT 15.3 K/mm3 (4.0-10.0)
[2022-01-13 06:47] LABS: CREATININE 1.3 mg/dL (0.55-1.3)
[2022-01-13 06:49] LABS: BILIRUBIN,TOTAL 0.3 mg/dL (0.2-1); TOT PROT 7.2 g/dl (6.4-8.2)
[2022-01-13] MEDS: PANTOPRAZOLE SODIUM 40 MG VIAL IVPUSH SCH (10:42)
[2022-01-13] MEDS: MIDODRINE HCL 2.5 MG TABLET PEG SCH ×2 (10:43→17:09)
[2022-01-13] MEDS: TRIAMCINOLONE ACET 0.1% 60 ML LOTION TP SCH ×2 (10:43→22:59)
[2022-01-13] MEDS: levETIRAcetam 500 MG/5 ML INJECTION VIAL IVPB SCH ×2 (10:43→22:58)
[2022-01-13] MEDS: ZINC SULFATE 220 MG CAPSULE (FP) GT SCH (10:43)
[2022-01-13] MEDS: FERROUS SO4 300 MG/5 ML ORAL SOLN UNIT DOSE CUPS GT SCH (10:43)
[2022-01-13] MEDS: SILVER SULFADIAZINE 1% TOP CREAM 50 GM JAR TP SCH (10:44)
[2022-01-13] MEDS: COLLAGENASE CLOSTRIDIUM HIST. 30 GRAMS TUBE TP SCH (10:44)
[2022-01-13] MEDS ORDERED: SODIUM PHOSPHATE IV SCH (16:00)
[2022-01-13] MEDS ORDERED: POTASSIUM ACETATE IV SCH (16:00)
[2022-01-13] MEDS ORDERED: MULTIVIT IV SCH (16:00)
[2022-01-13] MEDS ORDERED: [UNRECOGNIZED DRUG - OTHER] IV SCH (16:00)
[2022-01-13] MEDS: ATORVASTATIN CA 80 MG TABLET (FP) PEG SCH (22:59)
[2022-01-13] MEDS: FAT EMULSION/OLIVE/SOY/PHOSPHO 250 ML IV SCH (22:59)
[2022-01-14 09:03] LABS: ALBUMIN 1.8 g/dl (3.4-5.0); BLOOD UREA NITROGEN 103.2 mg/dL (7-18); CALCIUM 8.4 mg/dL (8.5-10.1); MAGNESIUM 2.2 mg/dL (1.8-2.4)
[2022-01-14 09:06] LABS: CREATININE 1.6 mg/dL (0.55-1.3); PHOSPHOROUS 3.2 mg/dL (2.5-4.9)
[2022-01-14 09:08] LABS: BILIRUBIN,TOTAL 0.6 mg/dL (0.2-1); TOT PROT 7.5 g/dl (6.4-8.2)
[2022-01-14] MEDS: levETIRAcetam 500 MG/5 ML INJECTION VIAL IVPB SCH ×2 (09:38→21:56)
[2022-01-14] MEDS: PANTOPRAZOLE SODIUM 40 MG VIAL IVPUSH SCH (09:38)
[2022-01-14] MEDS: TRIAMCINOLONE ACET 0.1% 60 ML LOTION TP SCH ×2 (09:48→21:56)
[2022-01-14] MEDS: COLLAGENASE CLOSTRIDIUM HIST. 30 GRAMS TUBE TP SCH (09:49)
[2022-01-14] MEDS: SILVER SULFADIAZINE 1% TOP CREAM 50 GM JAR TP SCH (09:49)
[2022-01-14] MEDS: MIDODRINE HCL 2.5 MG TABLET PEG SCH ×3 (09:49→21:55)
[2022-01-14] MEDS ORDERED: FUROSEMIDE 40 MG/4 ML INJECTABLE VIAL IVPUSH ONE (14:05)
[2022-01-14] MEDS: POTASSIUM ACETATE IV SCH (17:59)
[2022-01-14] MEDS: MULTIVIT IV SCH (17:59)
[2022-01-14] MEDS: [UNRECOGNIZED DRUG - OTHER] IV SCH (17:59)
[2022-01-14] MEDS: SODIUM PHOSPHATE IV SCH (17:59)
[2022-01-14] MEDS ORDERED: ACETAMINOPHEN 1000 MG/100 ML BAG IVPB ONE (18:48)
[2022-01-14] MEDS: ATORVASTATIN CA 80 MG TABLET (FP) PEG SCH (21:55)
[2022-01-14] MEDS: FAT EMULSION/OLIVE/SOY/PHOSPHO 250 ML IV SCH (22:13)
[2022-01-15 08:31] LABS: HEMATOCRIT 25.6 % (32.4-45.2); HEMOGLOBIN 8.6 GM/dL (10.7-15.3); MCH 29.7 pg (25.7-33.7); MCHC 33.3 g/dl (32.0-36.0); MEAN CELL VOLUME 89.2 fl (80-96); MEAN PLT VOLUME 7.4 fl (7.5-11.1); PLATELET COUNT 329 10^3/uL (134-434); RBC 2.87 M/mm3 (3.60-5.2); RDW 17.6 % (11.6-15.6); WHITE BLOOD COUNT 24.8 K/mm3 (4.0-10.0)
[2022-01-15 08:47] LABS: CHLORIDE 101 mmol/L (98-107); SODIUM 128 mmol/L (136-145)
[2022-01-15 08:49] LABS: ALBUMIN 1.9 g/dl (3.4-5.0); ANION GAP 12 MMOL/L (8-16); CO2 15 mmol/L (21-32); MAGNESIUM 2.1 mg/dL (1.8-2.4)
[2022-01-15 08:50] LABS: CALCIUM 7.9 mg/dL (8.5-10.1); GLUCOSE,RANDOM 159 mg/dL (74-106)
[2022-01-15 08:52] LABS: CREATININE 1.8 mg/dL (0.55-1.3)
[2022-01-15 08:53] LABS: SGOT/AST 16 U/L (15-37); SGPT/ALT 26 U/L (13-61)
[2022-01-15 08:54] LABS: CHOLESTEROL 84 mg/dL (50-200); LDL CHOLESTEROL (ONLY SJRH) 47 mg/dL (5-100); PHOSPHOROUS 3.7 mg/dL (2.5-4.9); TOT PROT 6.9 g/dl (6.4-8.2); TRIGLYCERIDES 156 mg/dL (0-150)
[2022-01-15 08:56] LABS: ALK PHOS 131 U/L (45-117); BILIRUBIN,TOTAL 0.7 mg/dL (0.2-1)
[2022-01-15 08:57] LABS: HDL CHOLESTEROL 21 mg/dL (40-60)
[2022-01-15 09:06] LABS: BLOOD UREA NITROGEN 126.3 mg/dL (7-18)
[2022-01-15] MEDS: TRIAMCINOLONE ACET 0.1% 60 ML LOTION TP SCH (09:30)
[2022-01-15] MEDS: levETIRAcetam 500 MG/5 ML INJECTION VIAL IVPB SCH (09:31)
[2022-01-15] MEDS: PANTOPRAZOLE SODIUM 40 MG VIAL IVPUSH SCH (09:32)
[2022-01-15] MEDS: MIDODRINE HCL 2.5 MG TABLET PEG SCH ×2 (09:33→19:10)
[2022-01-15 11:26] LABS: ANISOCYTOSIS 1+; MACROCYTOSIS 0
[2022-01-15] MEDS ORDERED: SODIUM BICARBONATE 650 MG TABLET PO SCH (13:30)
[2022-01-15 15:08] LABS: SARS-CoV-2 NAA Not Detected (Not Detected)
[2022-01-15] MEDS: COLLAGENASE CLOSTRIDIUM HIST. 30 GRAMS TUBE TP SCH (16:25)
[2022-01-15] MEDS: SODIUM PHOSPHATE IV SCH (16:26)
[2022-01-15] MEDS: SILVER SULFADIAZINE 1% TOP CREAM 50 GM JAR TP SCH (16:26)
[2022-01-15] MEDS: MULTIVIT IV SCH (16:26)
[2022-01-15] MEDS: [UNRECOGNIZED DRUG - OTHER] IV SCH (16:26)
[2022-01-15] MEDS: POTASSIUM ACETATE IV SCH (16:26)
[2022-01-15 18:23] VITALS: BP 110/69; PULSE 89; TEMP 97.5
== END 2022-01-15 19:17 | DRG 252 ==
LOC: JER 13:19 → JERBED 19:47 → J5S 12-19 05:59
PROVIDERS: ADMIT Hospitalist; ATTEND Family Medicine
PROC: 0D20XUZ Change Feeding Device in Upper Intestinal Tract, External Approach (ICD-10-PCS; principal; 2021-12-23)
PROC: 05HB33Z Insertion of Infusion Device into Right Basilic Vein, Percutaneous Approach (ICD-10-PCS; 2021-12-27)
PROC: B54MZZA Ultrasonography of Right Upper Extremity Veins, Guidance (ICD-10-PCS; 2021-12-27)
PROC: 5A1955Z Respiratory Ventilation, Greater than 96 Consecutive Hours (ICD-10-PCS; 2021-12-28)
PROC: 3E0G76Z Introduction of Nutritional Substance into Upper GI, Via Natural or Artificial Opening (ICD-10-PCS; 2022-01-03)
PROC: 02HV33Z Insertion of Infusion Device into Superior Vena Cava, Percutaneous Approach (ICD-10-PCS; 2022-01-09)
PROC: B518ZZA Fluoroscopy of Superior Vena Cava, Guidance (ICD-10-PCS; 2022-01-09)
DX: K94.21 Gastrostomy hemorrhage (principal); K28.0 Acute gastrojejunal ulcer with hemorrhage; J44.9 Chronic obstructive pulmonary disease, unspecified; I48.91 Unspecified atrial fibrillation; R53.2 Functional quadriplegia; N17.9 Acute kidney failure, unspecified; J96.10 Chronic respiratory failure, unspecified whether with hypoxia or hypercapnia; E87.1 Hypo-osmolality and hyponatremia; E87.2 Acidosis; I11.0 Hypertensive heart disease with heart failure; I50.9 Heart failure, unspecified; D72.829 Elevated white blood cell count, unspecified; J90 Pleural effusion, not elsewhere classified; E78.5 Hyperlipidemia, unspecified; E11.9 Type 2 diabetes mellitus without complications; E46 Unspecified protein-calorie malnutrition; D50.0 Iron deficiency anemia secondary to blood loss (chronic); K21.9 Gastro-esophageal reflux disease without esophagitis; E83.39 Other disorders of phosphorus metabolism; E87.6 Hypokalemia; K94.22 Gastrostomy infection; G40.909 Epilepsy, unspecified, not intractable, without status epilepticus; K94.29 Other complications of gastrostomy; J98.11 Atelectasis; L03.311 Cellulitis of abdominal wall; E66.9 Obesity, unspecified; Z68.29 Body mass index [BMI] 29.0-29.9, adult; Z86.718 Personal history of other venous thrombosis and embolism; Z86.73 Personal history of transient ischemic attack (TIA), and cerebral infarction without residual deficits
CPT/HCPCS: 36415; 36430; 36569; 71045-TC-FY; 74018-TC-FY; 74176-TC; 75820-TC-FY; 76700-TC; 77001-TC-FY; 80048; 80053; 80061; 82272; 82570; 82728; 82803; 83540; 83550; 83605; 83735; 84100; 84156; 84300; 84478; 84540; 85025; 85027; 85610; 85730; 86850; 86900; 86901; 86922; 87040; 93005; 93010; 94002; 99285-25; C1751; C9803-CS; J1756; P9058; U0003; U0005

== ENCOUNTER 2022-03-29 22:36 | Inpatient (IN) | payer OTHER ==
[2022-03-29] MEDS ORDERED: SODIUM CHLORIDE 500 ML IV STA (23:39)
[2022-03-29] MEDS ORDERED: PIPERACILLIN/TAZOB 4.5 GM 4.5 GM in DEXTROSE 5%-WATER 100 ML IVPB ONE (23:42)
[2022-03-29] MEDS ORDERED: VANCOMYCIN 1 GM PREMIX - 1 GM/200 ML BAG IVPB ONE (23:42)
[2022-03-29 23:59] LABS: EPI CELLS 9 /uL (0-25.1); HYALINE CASTS 14 /uL (0-3.1); PH,URINE 5.5 (5.0-8.0); URINE APPEARANCE TURBID; URINE BILIRUBIN 2+ (NEGATIVE); URINE COLOR ORANGE; URINE GLUCOSE (UA) NEGATIVE (NEGATIVE); URINE KETONE NEGATIVE (NEGATIVE); URINE LEUK ESTERASE 3+ (NEGATIVE); URINE NITRITE POSITIVE (NEGATIVE); URINE PROTEIN 2+ (NEGATIVE); URINE UROBILINOGEN 0.2 mg/dL (0.2-1.0); URINE WBC 705 /uL (0-25.8)
[2022-03-30 00:01] LABS: HEMATOCRIT 24.4 % (32.4-45.2); HEMOGLOBIN 7.7 GM/dL (10.7-15.3); MCHC 31.3 g/dl (32.0-36.0); MEAN CELL VOLUME 95.9 fl (80-96); PLATELET COUNT 234 10^3/uL (134-434); RBC 2.55 M/mm3 (3.60-5.2); RDW 19.8 % (11.6-15.6)
[2022-03-30] MEDS ORDERED: PIPERACILLIN/TAZOB 4.5 GM 4.5 GM/100 ML BAG IVPB ONE (00:14)
[2022-03-30] MEDS ORDERED: VANCOMYCIN 1 GRAM (PRE-DOCKED) 1,000 MG/250 ML BAG IVPB ONE (00:14)
[2022-03-30 00:15] LABS: INR 1.29 (0.83-1.09); PROTHROMBIN TIME (PATIENT) 14.9 SEC (9.7-13.0)
[2022-03-30 00:18] LABS: ACTIVATED PTT 39.3 SECONDS (25.2-36.5)
[2022-03-30 00:20] LABS: CHLORIDE 118 mmol/L (98-107); SODIUM 148 mmol/L (136-145)
[2022-03-30 00:22] LABS: CALCIUM 7.8 mg/dL (8.5-10.1)
[2022-03-30 00:23] LABS: ALBUMIN 1.2 g/dl (3.4-5.0); ANION GAP 11 MMOL/L (8-16); CO2 20 mmol/L (21-32); GLUCOSE,RANDOM 150 mg/dL (74-106)
[2022-03-30 00:26] LABS: CREATININE 2.6 mg/dL (0.55-1.3); SGOT/AST 10 U/L (15-37); SGPT/ALT 10 U/L (13-61)
[2022-03-30 00:28] LABS: BILIRUBIN,TOTAL 0.2 mg/dL (0.2-1)
[2022-03-30 00:29] LABS: ALK PHOS 84 U/L (45-117)
[2022-03-30 00:55] LABS: BLOOD UREA NITROGEN 145.2 mg/dL (7-18)
[2022-03-30] MEDS ORDERED: SODIUM CHLORIDE 0.9% 500 ML INFUS.BAG IV ONE (00:56)
[2022-03-30] MEDS ORDERED: COD LIVER OIL/ZINC OXIDE PASTE 56 GM TUBE TP PRN (03:20)
[2022-03-30] MEDS: NOREPINEPHRINE BITARTRATE 16,000 MCG in SODIUM CHLORIDE 484 ML IV SCH (03:59)
[2022-03-30 04:13] LABS: VENOUS BASE EXCESS -13.4 mmol/L (-2-2); VENOUS PCO2 55.4 mmHg (38-52)
[2022-03-30 04:19] LABS: VENOUS PH 7.074 (7.310-7.410)
[2022-03-30] MEDS ORDERED: DEXTROSE 5%-WATER - 50 ML IVPB ONE ×2 (06:55→08:51)
[2022-03-30] MEDS ORDERED: PIPERACILLIN/TAZOBACTAM 2.25 GM VIAL IVPB ONE ×3 (06:55→08:51)
[2022-03-30] MEDS: PIPERACILLIN/TAZOB 2.25 GM 2.25 GM in DEXTROSE 5%-WATER - 50 ML IVPB SCH ×2 (07:00→09:02)
[2022-03-30] MEDS: HYDROCORTISONE SOD SUCCINATE 100 MG/2 ML VIAL IVPUSH SCH ×4 (07:00→21:26)
[2022-03-30] MEDS: INSULIN SLIDING SCALE (NOVOLOG) 1 VIAL SQ SCH ×4 (07:00→21:27)
[2022-03-30] MEDS: VASOPRESSIN 40 UNITS/100 ML BAG IV SCH ×2 (07:05→14:02)
[2022-03-30 07:15] LABS: YEAST PRESENT (NEGATIVE)
[2022-03-30 07:16] LABS: URINE CRYSTALS NONE SEEN /hpf
[2022-03-30 07:38] LABS: ANISOCYTOSIS 3+; MACROCYTOSIS 1+
[2022-03-30 07:41] LABS: HEMATOCRIT 26.6 % (32.4-45.2); HEMOGLOBIN 8.4 GM/dL (10.7-15.3); MCH 30.3 pg (25.7-33.7); MCHC 31.4 g/dl (32.0-36.0); MEAN CELL VOLUME 96.5 fl (80-96); MEAN PLT VOLUME 8.3 fl (7.5-11.1); PLATELET COUNT 282 10^3/uL (134-434); RBC 2.76 M/mm3 (3.60-5.2)
[2022-03-30 08:29] LABS: CHLORIDE 116 mmol/L (98-107); SODIUM 146 mmol/L (136-145)
[2022-03-30 08:30] LABS: WHITE BLOOD COUNT 33.9 K/mm3 (4.0-10.0)
[2022-03-30 08:31] LABS: CALCIUM 8.2 mg/dL (8.5-10.1)
[2022-03-30 08:32] LABS: ALBUMIN 1.3 g/dl (3.4-5.0); ANION GAP 12 MMOL/L (8-16); CO2 19 mmol/L (21-32); GLUCOSE,RANDOM 143 mg/dL (74-106); MAGNESIUM 2.6 mg/dL (1.8-2.4)
[2022-03-30 08:35] LABS: CREATININE 2.6 mg/dL (0.55-1.3); PHOSPHOROUS 8.1 mg/dL (2.5-4.9); SGOT/AST 14 U/L (15-37); SGPT/ALT 9 U/L (13-61)
[2022-03-30 08:37] LABS: ALK PHOS 94 U/L (45-117); BILIRUBIN,TOTAL 0.3 mg/dL (0.2-1); BLOOD UREA NITROGEN 136.6 mg/dL (7-18); TOT PROT 6.5 g/dl (6.4-8.2)
[2022-03-30] MEDS: DOPAMINE 400 MG/D5W - 400,000 MCG/250 ML INFUS.BAG IVPB SCH ×2 (09:00→14:03)
[2022-03-30] MEDS: MUPIROCIN 2% TOPICAL OINTMENT FOR DECOLONIZATION NS SCH ×2 (09:05→21:27)
[2022-03-30] MEDS: PANTOPRAZOLE SODIUM 40 MG VIAL IVPUSH SCH (09:05)
[2022-03-30] MEDS ORDERED: levETIRAcetam 500 MG/5 ML ORAL SOLUTION (UNIT-DOSE CUPS) GT SCH (10:00)
[2022-03-30] MEDS ORDERED: FAMOTIDINE 40 MG/5 ML ORAL SUSPENSION NGT SCH ×2 (10:00)
[2022-03-30] MEDS ORDERED: VANCOMYCIN 1 GM in D5W (PRE-DOCKED) 1,000 MG/250 ML IVPB SCH ×2 (10:00→22:00)
[2022-03-30] MEDS: NYSTATIN 100000 UNIT/GM TOPICAL OINTMENT 15 GM TUBE TP SCH ×2 (10:25→21:48)
[2022-03-30] MEDS: Lacosamide 50 MG/5 ML ORAL SOLUTION UNIT CUPS PEG SCH ×2 (10:29→21:28)
[2022-03-30] MEDS: MIDODRINE HCL 5 MG TABLET PEG SCH (10:29)
[2022-03-30] MEDS: FLUDROCORTISONE ACETATE 0.1 MG TABLET (FP) PEG SCH (10:29)
[2022-03-30 10:43] LABS: ANISOCYTOSIS 1+; MACROCYTOSIS 1+
[2022-03-30] MEDS: FUROSEMIDE INJECTION 100 MG in SODIUM CHLORIDE 40 ML IVPB SCH (13:13)
[2022-03-30] MEDS ORDERED: DEXTROSE 5%-WATER 100 ML IVPB ONE ×2 (13:52→21:08)
[2022-03-30] MEDS ORDERED: MEROPENEM 1 GM VIAL (RESTRICTED TO ID) IVPB ONE ×2 (13:52→21:08)
[2022-03-30] MEDS: MEROPENEM 1 GM in DEXTROSE 5%-WATER 100 ML IVPB SCH ×2 (14:03→21:48)
[2022-03-30] MEDS ORDERED: DOPAMINE 400 MG/D5W - 400,000 MCG/250 ML INFUS.BAG IVPB ONE (17:19)
[2022-03-30] MEDS: Lacosamide 200 MG/20 ML VIAL IVPB SCH (21:27)
[2022-03-30] MEDS: levETIRAcetam 500 MG/5 ML INJECTION VIAL IVPB SCH (21:27)
[2022-03-30] MEDS: CHLORHEXIDINE GLUCONATE 4% CLEANSER FOR DECOLONIZATION TP SCH (21:27)
[2022-03-30] MEDS ORDERED: VANCOMYCIN/WATER FOR INJ (PEG) 1,000 MG/200 ML BAG IVPB SCH (23:00)
[2022-03-31] MEDS: NOREPINEPHRINE BITARTRATE 16,000 MCG in SODIUM CHLORIDE 484 ML IV SCH ×2 (03:54→16:26)
[2022-03-31] MEDS: HYDROCORTISONE SOD SUCCINATE 100 MG/2 ML VIAL IVPUSH SCH ×4 (03:55→21:09)
[2022-03-31] MEDS: DOPAMINE 400 MG/D5W - 400,000 MCG/250 ML INFUS.BAG IVPB SCH ×5 (03:55→16:44)
[2022-03-31] MEDS: PIPERACILLIN/TAZOB 2.25 GM 2.25 GM in DEXTROSE 5%-WATER - 50 ML IVPB SCH (04:22)
[2022-03-31] MEDS: VASOPRESSIN 40 UNITS/100 ML BAG IV SCH (06:44)
[2022-03-31] MEDS: INSULIN SLIDING SCALE (NOVOLOG) 1 VIAL SQ SCH ×4 (06:44→21:12)
[2022-03-31] MEDS: FUROSEMIDE INJECTION 100 MG in SODIUM CHLORIDE 40 ML IVPB SCH (07:28)
[2022-03-31 07:49] LABS: HEMOGLOBIN 7.8 GM/dL (10.7-15.3); MCH 30.2 pg (25.7-33.7); MCHC 31.2 g/dl (32.0-36.0); MEAN PLT VOLUME 8.4 fl (7.5-11.1); PLATELET COUNT 239 10^3/uL (134-434); RBC 2.58 M/mm3 (3.60-5.2); RDW 19.2 % (11.6-15.6)
[2022-03-31 07:51] LABS: WHITE BLOOD COUNT 41.9 K/mm3 (4.0-10.0)
[2022-03-31 08:14] LABS: CHLORIDE 126 mmol/L (98-107); SODIUM 158 mmol/L (136-145)
[2022-03-31 08:17] LABS: CALCIUM 7.7 mg/dL (8.5-10.1)
[2022-03-31 08:18] LABS: CO2 14 mmol/L (21-32); GLUCOSE,RANDOM 146 mg/dL (74-106); MAGNESIUM 2.5 mg/dL (1.8-2.4)
[2022-03-31 08:21] LABS: CREATININE 2.8 mg/dL (0.55-1.3)
[2022-03-31 08:39] LABS: ANION GAP 18 MMOL/L (8-16); BLOOD UREA NITROGEN 138.4 mg/dL (7-18)
[2022-03-31] MEDS ORDERED: CALCIUM GLUC IN NACL, ISO-OSM 1 GM/50 ML BAG IVPB ONE (08:46)
[2022-03-31] MEDS ORDERED: CALCIUM GLUCONATE 10% - 1,000 MG/10 ML VIAL IVPUSH ONE (08:48)
[2022-03-31] MEDS ORDERED: DEXTROSE 50%-WATER - 25 GM/50 ML VIAL IVPUSH ONE (08:49)
[2022-03-31] MEDS ORDERED: INSULIN REGULAR HUMAN 100 UNITS/ML *VIAL IVPUSH ONE (08:50)
[2022-03-31] MEDS ORDERED: MEROPENEM 500 MG VIAL (RESTRICTED TO ID) IVPB ONE ×2 (09:50→21:10)
[2022-03-31] MEDS ORDERED: DEXTROSE 5%-WATER 100 ML IVPB ONE ×2 (09:50→21:10)
[2022-03-31] MEDS ORDERED: DEXTROSE 50%-WATER 25 GM/50 ML DISP.SYRIN ONE (09:55)
[2022-03-31] MEDS: MUPIROCIN 2% TOPICAL OINTMENT FOR DECOLONIZATION NS SCH ×2 (10:05→21:09)
[2022-03-31] MEDS: MIDODRINE HCL 5 MG TABLET PEG SCH (10:06)
[2022-03-31] MEDS: PANTOPRAZOLE SODIUM 40 MG VIAL IVPUSH SCH (10:06)
[2022-03-31] MEDS: NYSTATIN 100000 UNIT/GM TOPICAL OINTMENT 15 GM TUBE TP SCH ×2 (10:06→21:12)
[2022-03-31] MEDS: MEROPENEM 500 MG in DEXTROSE 5%-WATER 100 ML IVPB SCH ×2 (10:07→21:10)
[2022-03-31 10:13] LABS: ANISOCYTOSIS 3+; MACROCYTOSIS 0
[2022-03-31] MEDS: Lacosamide 200 MG/20 ML VIAL IVPB SCH ×2 (10:16→21:11)
[2022-03-31] MEDS: Lacosamide 50 MG/5 ML ORAL SOLUTION UNIT CUPS PEG SCH (10:17)
[2022-03-31] MEDS: FLUDROCORTISONE ACETATE 0.1 MG TABLET (FP) PEG SCH (10:17)
[2022-03-31] MEDS: levETIRAcetam 500 MG/5 ML INJECTION VIAL IVPB SCH ×2 (10:17→21:10)
[2022-03-31] MEDS ORDERED: ONDANSETRON 4 MG/2 ML VIAL IVPUSH ONE (10:27)
[2022-03-31] MEDS ORDERED: SODIUM BICARBONATE 8.4% 50 MEQ/50 ML DISP.SYRIN IVPUSH ONE (10:46)
[2022-03-31] MEDS ORDERED: EPINEPHrine 1:1,000 1,000 MCG in DEXTROSE 5%-WATER - 249 ML IVPB SCH (16:15)
[2022-03-31 17:40] LABS: HEMATOCRIT 23.4 % (32.4-45.2); HEMOGLOBIN 7.1 GM/dL (10.7-15.3); MCH 29.8 pg (25.7-33.7); MCHC 30.5 g/dl (32.0-36.0); MEAN CELL VOLUME 97.6 fl (80-96); MEAN PLT VOLUME 8.1 fl (7.5-11.1); PLATELET COUNT 209 10^3/uL (134-434); RDW 20.6 % (11.6-15.6)
[2022-03-31 17:42] LABS: WHITE BLOOD COUNT 41.7 K/mm3 (4.0-10.0)
[2022-03-31 18:40] LABS: CALCIUM 7.8 mg/dL (8.5-10.1); CHLORIDE 113 mmol/L (98-107); SODIUM 144 mmol/L (136-145)
[2022-03-31 18:41] LABS: ANION GAP 15 MMOL/L (8-16); CO2 16 mmol/L (21-32); GLUCOSE,RANDOM 198 mg/dL (74-106); MAGNESIUM 2.3 mg/dL (1.8-2.4)
[2022-03-31 18:44] LABS: CREATININE 2.6 mg/dL (0.55-1.3); PHOSPHOROUS 8.9 mg/dL (2.5-4.9); SGOT/AST 31 U/L (15-37); SGPT/ALT 15 U/L (13-61)
[2022-03-31 18:45] LABS: BILIRUBIN,TOTAL 0.4 mg/dL (0.2-1); TOT PROT 5.2 g/dl (6.4-8.2)
[2022-03-31 18:47] LABS: ALK PHOS 119 U/L (45-117)
[2022-03-31 19:00] LABS: BLOOD UREA NITROGEN 133.6 mg/dL (7-18)
[2022-03-31] MEDS: CHLORHEXIDINE GLUCONATE 4% CLEANSER FOR DECOLONIZATION TP SCH (21:10)
[2022-04-01] MEDS: HYDROCORTISONE SOD SUCCINATE 100 MG/2 ML VIAL IVPUSH SCH ×4 (02:16→21:22)
[2022-04-01] MEDS: NOREPINEPHRINE BITARTRATE 16,000 MCG in SODIUM CHLORIDE 484 ML IV SCH ×3 (02:32→22:22)
[2022-04-01] MEDS: INSULIN SLIDING SCALE (NOVOLOG) 1 VIAL SQ SCH ×4 (07:30→22:21)
[2022-04-01 07:36] LABS: HEMATOCRIT 24.2 % (32.4-45.2); HEMOGLOBIN 7.5 GM/dL (10.7-15.3); MCH 30.4 pg (25.7-33.7); MCHC 30.9 g/dl (32.0-36.0); MEAN CELL VOLUME 98.6 fl (80-96); MEAN PLT VOLUME 8.5 fl (7.5-11.1); PLATELET COUNT 208 10^3/uL (134-434); RBC 2.45 M/mm3 (3.60-5.2); RDW 20.6 % (11.6-15.6)
[2022-04-01 07:56] LABS: WHITE BLOOD COUNT 51.6 K/mm3 (4.0-10.0)
[2022-04-01 08:20] LABS: CHLORIDE 108 mmol/L (98-107); SODIUM 136 mmol/L (136-145)
[2022-04-01 08:23] LABS: ANION GAP 13 MMOL/L (8-16); CO2 15 mmol/L (21-32); GLUCOSE,RANDOM 205 mg/dL (74-106); MAGNESIUM 2.3 mg/dL (1.8-2.4)
[2022-04-01 08:26] LABS: CREATININE 2.7 mg/dL (0.55-1.3)
[2022-04-01 09:02] LABS: BLOOD UREA NITROGEN 135.1 mg/dL (7-18); PHOSPHOROUS 8.8 mg/dL (2.5-4.9)
[2022-04-01] MEDS: DOPAMINE 400 MG/D5W - 400,000 MCG/250 ML INFUS.BAG IVPB SCH ×4 (10:40→23:50)
[2022-04-01] MEDS: VASOPRESSIN 40 UNITS/100 ML BAG IV SCH ×2 (10:42→21:29)
[2022-04-01] MEDS ORDERED: DEXTROSE 5%-WATER 100 ML IVPB ONE (10:52)
[2022-04-01] MEDS ORDERED: MEROPENEM 500 MG VIAL (RESTRICTED TO ID) IVPB ONE (10:52)
[2022-04-01] MEDS: MUPIROCIN 2% TOPICAL OINTMENT FOR DECOLONIZATION NS SCH ×2 (10:56→21:22)
[2022-04-01] MEDS: levETIRAcetam 500 MG/5 ML INJECTION VIAL IVPB SCH ×2 (10:56→21:23)
[2022-04-01] MEDS: FLUDROCORTISONE ACETATE 0.1 MG TABLET (FP) PEG SCH (10:57)
[2022-04-01] MEDS: MIDODRINE HCL 5 MG TABLET PEG SCH (10:58)
[2022-04-01] MEDS: NYSTATIN 100000 UNIT/GM TOPICAL OINTMENT 15 GM TUBE TP SCH ×2 (10:58→21:25)
[2022-04-01] MEDS: MEROPENEM 500 MG in DEXTROSE 5%-WATER 100 ML IVPB SCH (10:58)
[2022-04-01] MEDS: PANTOPRAZOLE SODIUM 40 MG VIAL IVPUSH SCH (10:58)
[2022-04-01] MEDS: Lacosamide 200 MG/20 ML VIAL IVPB SCH ×2 (10:58→21:27)
[2022-04-01] MEDS: SODIUM ZIRCONIUM CYCLOSILICATE (LOKELMA) 5 GM PACKET GT SCH (11:28)
[2022-04-01 16:25] VITALS: BMI 40.6
[2022-04-01] MEDS: CHLORHEXIDINE GLUCONATE 4% CLEANSER FOR DECOLONIZATION TP SCH (21:23)
[2022-04-02] MEDS: HYDROCORTISONE SOD SUCCINATE 100 MG/2 ML VIAL IVPUSH SCH ×4 (02:23→21:52)
[2022-04-02] MEDS: DOPAMINE 400 MG/D5W - 400,000 MCG/250 ML INFUS.BAG IVPB SCH ×4 (03:05→20:53)
[2022-04-02] MEDS: NOREPINEPHRINE BITARTRATE 16,000 MCG in SODIUM CHLORIDE 484 ML IV SCH (05:59)
[2022-04-02] MEDS: VASOPRESSIN 40 UNITS/100 ML BAG IV SCH (06:21)
[2022-04-02] MEDS: INSULIN SLIDING SCALE (NOVOLOG) 1 VIAL SQ SCH ×4 (06:34→22:16)
[2022-04-02] MEDS ORDERED: DEXTROSE 5%-WATER 100 ML IVPB ONE (09:30)
[2022-04-02] MEDS ORDERED: MEROPENEM 500 MG VIAL (RESTRICTED TO ID) IVPB ONE (09:30)
[2022-04-02] MEDS: PANTOPRAZOLE SODIUM 40 MG VIAL IVPUSH SCH (09:39)
[2022-04-02] MEDS: FLUDROCORTISONE ACETATE 0.1 MG TABLET (FP) PEG SCH (09:41)
[2022-04-02] MEDS: MEROPENEM 500 MG in DEXTROSE 5%-WATER 100 ML IVPB SCH (09:41)
[2022-04-02] MEDS: SODIUM ZIRCONIUM CYCLOSILICATE (LOKELMA) 5 GM PACKET GT SCH (09:43)
[2022-04-02] MEDS: levETIRAcetam 500 MG/5 ML INJECTION VIAL IVPB SCH ×2 (09:43→21:54)
[2022-04-02] MEDS: MIDODRINE HCL 5 MG TABLET PEG SCH (09:43)
[2022-04-02] MEDS: Lacosamide 200 MG/20 ML VIAL IVPB SCH ×2 (09:46→21:56)
[2022-04-02] MEDS: MUPIROCIN 2% TOPICAL OINTMENT FOR DECOLONIZATION NS SCH ×2 (09:48→21:53)
[2022-04-02] MEDS: NYSTATIN 100000 UNIT/GM TOPICAL OINTMENT 15 GM TUBE TP SCH ×2 (09:49→21:56)
[2022-04-02] MEDS ORDERED: CASPOFUNGIN ACETATE 70 MG in SODIUM CHLORIDE 250 ML IVPB ONE (10:00)
[2022-04-02] MEDS: CHLORHEXIDINE GLUCONATE 4% CLEANSER FOR DECOLONIZATION TP SCH (21:53)
[2022-04-03] MEDS: DOPAMINE 400 MG/D5W - 400,000 MCG/250 ML INFUS.BAG IVPB SCH ×3 (00:35→10:32)
[2022-04-03] MEDS: HYDROCORTISONE SOD SUCCINATE 100 MG/2 ML VIAL IVPUSH SCH ×2 (02:37→09:45)
[2022-04-03] MEDS: VASOPRESSIN 40 UNITS/100 ML BAG IV SCH ×2 (02:38→05:34)
[2022-04-03] MEDS: NOREPINEPHRINE BITARTRATE 16,000 MCG in SODIUM CHLORIDE 484 ML IV SCH ×2 (04:26→05:46)
[2022-04-03] MEDS: INSULIN SLIDING SCALE (NOVOLOG) 1 VIAL SQ SCH ×2 (06:29→10:32)
[2022-04-03 07:32] LABS: BASO % 0.3 % (0-2.0); HEMATOCRIT 22.4 % (32.4-45.2); LYMPH % 9.5 % (8-40); MCH 29.8 pg (25.7-33.7); MEAN CELL VOLUME 99.3 fl (80-96); MEAN PLT VOLUME 8.4 fl (7.5-11.1); MONO % 2.9 % (3.8-10.2); NEUT % 87.3 % (42.8-82.8); PLATELET COUNT 155 10^3/uL (134-434); RBC 2.26 M/mm3 (3.60-5.2); RDW 19.8 % (11.6-15.6)
[2022-04-03 07:40] LABS: HEMOGLOBIN 6.7 GM/dL (10.7-15.3)
[2022-04-03] MEDS ORDERED: DEXTROSE 5%-WATER 100 ML IVPB ONE (07:45)
[2022-04-03] MEDS ORDERED: MEROPENEM 500 MG VIAL (RESTRICTED TO ID) IVPB ONE (07:45)
[2022-04-03 07:51] LABS: CHLORIDE 105 mmol/L (98-107); SODIUM 131 mmol/L (136-145)
[2022-04-03 07:52] LABS: CALCIUM 7.4 mg/dL (8.5-10.1)
[2022-04-03 07:53] LABS: ANION GAP 15 MMOL/L (8-16); CO2 11 mmol/L (21-32); GLUCOSE,RANDOM 75 mg/dL (74-106); MAGNESIUM 2.1 mg/dL (1.8-2.4)
[2022-04-03 07:56] LABS: SGPT/ALT 39 U/L (13-61)
[2022-04-03 07:58] LABS: BILIRUBIN,TOTAL 0.7 mg/dL (0.2-1); CREATININE 2.6 mg/dL (0.55-1.3); SGOT/AST 128 U/L (15-37)
[2022-04-03 08:25] LABS: ALK PHOS 157 U/L (45-117); PHOSPHOROUS 9.7 mg/dL (2.5-4.9)
[2022-04-03] MEDS ORDERED: MORPHINE SULFATE/0.9% NACL/PF 100 MG/100 ML BAG IVPB SCH (09:30)
[2022-04-03] MEDS: levETIRAcetam 500 MG/5 ML INJECTION VIAL IVPB SCH (09:42)
[2022-04-03] MEDS: PANTOPRAZOLE SODIUM 40 MG VIAL IVPUSH SCH (09:42)
[2022-04-03] MEDS: MEROPENEM 500 MG in DEXTROSE 5%-WATER 100 ML IVPB SCH (09:42)
[2022-04-03] MEDS: Lacosamide 200 MG/20 ML VIAL IVPB SCH (09:42)
[2022-04-03] MEDS: SODIUM ZIRCONIUM CYCLOSILICATE (LOKELMA) 5 GM PACKET GT SCH (09:43)
[2022-04-03] MEDS: NYSTATIN 100000 UNIT/GM TOPICAL OINTMENT 15 GM TUBE TP SCH (09:44)
[2022-04-03] MEDS: MIDODRINE HCL 5 MG TABLET PEG SCH (09:44)
[2022-04-03] MEDS: FLUDROCORTISONE ACETATE 0.1 MG TABLET (FP) PEG SCH (09:46)
[2022-04-03] MEDS: MUPIROCIN 2% TOPICAL OINTMENT FOR DECOLONIZATION NS SCH (09:46)
[2022-04-03] MEDS ORDERED: DEXTROSE 50%-WATER 25 GM/50 ML DISP.SYRIN IVPUSH ONE (10:15)
[2022-04-03] MEDS ORDERED: DEXTROSE 50%-WATER 25 GM/50 ML DISP.SYRIN ONE (10:30)
[2022-04-03] MEDS ORDERED: NOREPINEPHRINE D5W PREMIX 16,000 MCG/500 ML BAG IVPB SCH ×2 (10:30→11:00)
[2022-04-03] MEDS ORDERED: INSULIN (NOVOLOG) ASPART 100 UNITS/ML 10ML VIAL SQ ONE (10:34)
[2022-04-03] MEDS ORDERED: INSULIN REGULAR HUMAN 100 UNITS/ML *VIAL IVPUSH ONE (11:00)
[2022-04-03 11:58] LABS: ANISOCYTOSIS 2+; HOWELL-JOLLY BODIES 2+; MACROCYTOSIS 0; OVALOCYTE 2+; TEAR DROP CELLS 1+; TOXIC GRANULATION 2+
[2022-04-03 12:02] LABS: CORRECTED WBC 49.83 K/mm3
[2022-04-03 12:10] LABS: WHITE BLOOD COUNT 57.8 K/mm3 (4.0-10.0)
[2022-04-03 12:16] VITALS: BP 62/50; PULSE 48; TEMP 92.5
[2022-04-03] MEDS ORDERED: CASPOFUNGIN ACETATE 50 MG in SODIUM CHLORIDE 250 ML IVPB SCH (13:00)
== END 2022-04-03 04:45 | disposition expired | DRG 720 ==
LOC: JER 22:36 → JERBED 03-30 01:44 → JICU 03-30 04:55
PROVIDERS: ADMIT Internal Medicine Pulmonary Disease; ATTEND Internal Medicine Pulmonary Disease
PROC: 05H633Z Insertion of Infusion Device into Left Subclavian Vein, Percutaneous Approach (ICD-10-PCS; principal; 2022-03-29)
PROC: 05HN33Z Insertion of Infusion Device into Left Internal Jugular Vein, Percutaneous Approach (ICD-10-PCS; 2022-03-29)
PROC: 5A1945Z Respiratory Ventilation, 24-96 Consecutive Hours (ICD-10-PCS; 2022-03-29)
PROC: 0D20XUZ Change Feeding Device in Upper Intestinal Tract, External Approach (ICD-10-PCS; 2022-03-30)
PROC: 5A12012 Performance of Cardiac Output, Single, Manual (ICD-10-PCS; 2022-03-31)
DX: A41.89 Other specified sepsis (principal); R65.21 Severe sepsis with septic shock; R53.2 Functional quadriplegia; J44.9 Chronic obstructive pulmonary disease, unspecified; I13.0 Hypertensive heart and chronic kidney disease with heart failure and stage 1 through stage 4 chronic kidney disease, or unspecified chronic kidney disease; N18.9 Chronic kidney disease, unspecified; I50.9 Heart failure, unspecified; L89.154 Pressure ulcer of sacral region, stage 4; N39.0 Urinary tract infection, site not specified; J81.1 Chronic pulmonary edema; E11.22 Type 2 diabetes mellitus with diabetic chronic kidney disease; N17.9 Acute kidney failure, unspecified; R57.1 Hypovolemic shock; E87.0 Hyperosmolality and hypernatremia; E87.2 Acidosis; I48.91 Unspecified atrial fibrillation; J96.10 Chronic respiratory failure, unspecified whether with hypoxia or hypercapnia; E87.5 Hyperkalemia; E87.70 Fluid overload, unspecified; I46.9 Cardiac arrest, cause unspecified; D72.829 Elevated white blood cell count, unspecified; J90 Pleural effusion, not elsewhere classified; G40.802 Other epilepsy, not intractable, without status epilepticus; J98.11 Atelectasis; L89.893 Pressure ulcer of other site, stage 3; L89.613 Pressure ulcer of right heel, stage 3; Z93.0 Tracheostomy status; Z93.1 Gastrostomy status; Z74.01 Bed confinement status
CPT/HCPCS: 0241U-QW; 36415; 71045-TC-FY; 74018-TC-FY; 80048; 80053; 81003; 82272; 82553; 82803; 82962; 83605; 83735; 83880; 84100; 84443; 84484; 85025; 85027; 85610; 85730; 86850; 86900; 86901; 87040; 87070; 87077; 87086; 87106; 87186; 87205; 87324; 87449; 93005; 93010; 94002; 99285-25; G0480; J3490